=== PATIENT | female | born 1945 | race Caucasian/White ===

== ENCOUNTER 2019-06-09 16:18 | Outpatient (CLI) | payer MEDICARE, SELFPAY ==
--- NOTE | ~2019-06-09 | CT_ITS ---
EXAMINATION: CT abdomen pelvis wo con DATE: 06/09/2019 16:44 INDICATION: Renal cell carcinoma. Follow-up exophytic right renal mass. TECHNIQUE: Computed tomography (CT) of the abdomen and pelvis was performed without intravenous contr ast. The dose-length product was 1411.09 mGy-cm. Automated exposure control and iterative reconstruct ion technique were employed. COMPARISON: CT dated 03/05/2019 FINDINGS: There is an exophytic hyperdense right renal mass medially measuring 2.1 x 2.1 cm, unchange d. There is a 2 mm nonobstructing right renal stone. The left kidney is surgically absent. Lung bases are unremarkable. No significant pleural or pericardial effusion. Heart size normal. No ly mphadenopathy. Nonobstructive bowel gas pattern. Small fat-containing umbilical hernia. Colonic diver ticulosis without evidence for diverticulitis. No free air or free fluid. Uterus is surgically absent . Moderate lumbar spondylosis. Mild osteoarthritis of the hips. No osteolytic or osteoblastic lesions are identified. IMPRESSION: 1. Stable slightly exophytic hyperdense right renal mass measuring 2.1 x 2.1 cm. Correlation with ult rasound or MRI with contrast is recommended to exclude enhancement. 2: Punctate nonobstructing right nephrolithiasis. Reviewed, dictated and finalized at location A. IMPRESSION: 1. Stable slightly exophytic hyperdense right renal mass measuring 2.1 x 2.1 cm . Correlation with ultrasound or MRI with contrast is recommended to exclude en hancement. 2: Punctate nonobstructing right nephrolithiasis.
== END 2019-06-09 16:19 | disposition home or self-care (01) ==
PROVIDERS: PCP Family Medicine Sports Medicine; Visit Provider Urology
DX: D41.01 Neoplasm of uncertain behavior of right kidney (principal); N20.0 Calculus of kidney
CPT/HCPCS: 74176

== ENCOUNTER 2019-07-13 12:58 | Outpatient (CLI) | payer MEDICARE, SELFPAY ==
--- NOTE | 2019-07-13 13:27 | ECG_ITS ---
Measurements Intervals [employer] Rate: 100 P: -4 ND: 145 QRS: 24 QRSD: 94 T: 67 QT: 333 QTc: 430 Interpretive Statements SINUS TACHYCARDIA BORDERLINE ST-T WAVE ABNORMALITY- ANTEROLAT/LAT LEADS BORDERLINE ECG Electronically Signed On 07-13-2019 14:24:57 CDT by Sarbjit Guerrero D.O.
[2019-07-13 14:27] LABS: Hematocrit 46.4 % (37.0-47.0); Hemoglobin 15.8 g/dL (12.0-15.0)
[2019-07-13 14:41] LABS: Blood Urea Nitrogen 36 mg/dL (7-17); Calcium 8.5 mg/dL (8.4-10.2); Carbon Dioxide 23 mmol/L (22-30); Chloride 105 mmol/L (98-107); Estimated Glomerular Filt Rate 22; Glucose 133 mg/dL (65-105); Potassium 3.4 mmol/L (3.4-5.0); Sodium 138 mmol/L (137-145)
== END 2019-07-13 12:59 | disposition home or self-care (01) ==
PROVIDERS: Anesthesiology; PCP Family Medicine Sports Medicine; Visit Provider Urology
DX: Z01.818 Encounter for other preprocedural examination (principal); D64.9 Anemia, unspecified; I10 Essential (primary) hypertension; E11.9 Type 2 diabetes mellitus without complications
CPT/HCPCS: 36415; 80048; 85014; 85018; 93005

== ENCOUNTER 2019-07-19 00:13 | Outpatient (CLI) | payer MEDICARE, SELFPAY ==
[2019-07-19 17:31] LABS: SARS-CoV-2 RNA PCR Negative
== END 2019-07-19 00:14 | disposition home or self-care (01) ==
LOC: ANHCOVIDDT 00:14
PROVIDERS: PCP Family Medicine Sports Medicine; Visit Provider Urology
DX: Z01.812 Encounter for preprocedural laboratory examination (principal); Z20.828 Contact with and (suspected) exposure to other viral communicable diseases
CPT/HCPCS: 87635; C9803; U0003

== ENCOUNTER 2020-01-09 16:29 | Outpatient (CLI) | payer MEDICARE, SELFPAY ==
--- NOTE | ~2020-01-09 | CT_ITS ---
EXAMINATION: CT abdomen pelvis wo con DATE: 01/09/2020 17:23 INDICATION: Right kidney neoplasm TECHNIQUE: Computed tomography (CT) of the abdomen and pelvis was performed without intravenous contr ast. Automated exposure control and iterative reconstruction technique were employed. Exam dose: 138 5.11 mGy-cm total exam DLP. COMPARISON: 06/09/2019 at 03/05/2019 CT abdomen pelvis examinations FINDINGS: Stable 2 cm rounded exophytic mass along the posteromedial mid right kidney, stable in size , shape and density (approximately 50 Hounsfield units) compared to 03/05/2019. Normal heart size. No pericardial or pleural effusion. Small sliding hiatal hernia. Status post cholecystectomy. No bile duct or pancreatic duct dilatation. No hepatic, splenic, pancrea tic, adrenal space-occupying mass lesion is evident. Pinpoint nonobstructing calculus of the right kidney. No ureteral calculus or hydroureteronephrosis. Status post left nephrectomy. No abnormal soft tissue mass is identified in the nephrectomy bed. There is atherosclerotic calcification of the abdominal aorta but no aneurysm. No intraperitoneal or retroperitoneal or pelvic mass lesion or adenopathy or ascites. Small fat-containing umbilical hernia. The urinary bladder is unremarkable. Status post hysterectomy. There are multiple diverticula of the left colon, particularly sigmoid area; no CT evidence of divert iculitis. No bowel obstruction, bowel wall thickening, pneumatosis or intraperitoneal free air. The a ppendix is not detected. No CT evidence of appendicitis or abscess. Diffuse idiopathic skeletal hyperostosis of the thoracic spine. Severe degenerative disc disease of t he lumbar/lumbosacral spine. Small fat-containing umbilical hernia. IMPRESSION: No significant change of rounded 2 cm exophytic right renal mass since 03/05/2019 Small sliding hiatal hernia Status post cholecystectomy Status post left nephrectomy Status post hysterectomy Diverticulosis of the colon Reviewed, dictated and finalized at [facility]. Reviewed, dictated and finalized at location B. E LAWYER IMPRESSION: No significant change of rounded 2 cm exophytic right renal mass s marshal 03/05/2019 Small sliding hiatal hernia Status post cholecystectomy Status post left nephrectomy Status post hysterectomy Diverticulosis of the colon
== END 2020-01-09 16:30 | disposition home or self-care (01) ==
PROVIDERS: PCP Family Medicine Sports Medicine; Visit Provider Urology
DX: D41.01 Neoplasm of uncertain behavior of right kidney (principal); K44.9 Diaphragmatic hernia without obstruction or gangrene; Z90.49 Acquired absence of other specified parts of digestive tract; K57.30 Diverticulosis of large intestine without perforation or abscess without bleeding
CPT/HCPCS: 74176

== ENCOUNTER 2021-01-03 17:37 | Outpatient (CLI) | payer MEDICARE, SELFPAY ==
--- NOTE | ~2021-01-03 | CT_ITS ---
EXAMINATION: CT abdomen pelvis wo con DATE: 01/03/2021 17:57 INDICATION: Right renal neoplasm TECHNIQUE: Computed tomography (CT) of the abdomen and pelvis was performed without intravenous contr ast. The dose-length product was 1179.55 mGy-cm. Automated exposure control and iterative reconstruct ion technique were employed. COMPARISON: Comparison to multiple prior studies sequentially, with oldest reviewed study dated 03/05. . FINDINGS: There is a possible 7 mm right lung nodule on image 1, partially visualized. Heart size is normal. No significant pleural or pericardial effusion. The left kidney is surgically absent. The hyp erdense mass of the right kidney medially is increase in size measuring 2.3 x 2.1 cm greatest axial d imension compared with 1.8 x 1.7 cm on the 03/05/2019 examination. This mass measures 51 Hounsfield un its. There are cholecystectomy clips. The liver, spleen, pancreas, adrenal glands are unremarkable. T here is a 2 mm nonobstructing right renal stone. No ureteral stones or hydronephrosis. There is an um bilical hernia. Colonic diverticulosis without diverticulitis. Status post hysterectomy. No abnormal pelvic masses or fluid collections. There is severe lumbar spondylosis. IMPRESSION: 1. Enlarging hyperdense right renal mass located medially measuring 2.3 x 2.1 cm greatest axial dimen latrice. This mass is concerning for malignancy. Recommend correlation with ultrasound or contrast-enhan corby CT or MRI. 2: Possible 7 mm right upper lobe nodule. Recommend correlation with CT chest. 3: Nonobstructing 2 mm right renal stone. Reviewed, dictated and finalized at location A. ALMIC TECH IMPRESSION: 1. Enlarging hyperdense right renal mass located medially measuring 2.3 x 2.1 c m greatest axial dimension. This mass is concerning for malignancy. Recommend c orrelation with ultrasound or contrast-enhanced CT or MRI. 2: Possible 7 mm right upper lobe nodule. Recommend correlation with CT chest. 3: Nonobstructing 2 mm right renal stone.
== END 2021-01-03 17:38 | disposition home or self-care (01) ==
PROVIDERS: PCP Family Medicine Sports Medicine; Visit Provider Urology
DX: D41.01 Neoplasm of uncertain behavior of right kidney (principal); K57.30 Diverticulosis of large intestine without perforation or abscess without bleeding; M47.816 Spondylosis without myelopathy or radiculopathy, lumbar region; N20.0 Calculus of kidney
CPT/HCPCS: 74176

== ENCOUNTER 2021-01-10 00:41 | Day surgery (SDC) | payer MEDICARE, SELFPAY ==
[2020-12-31 16:09] VITALS: BMI 36.8
[2021-01-10 11:32] VITALS: BP 181/69; PULSE 112; RESP 20; TEMP 36.2; O2SAT 96
--- NOTE | 2021-01-10 11:32 | WPDGICN ---
Assessment and Plan Assessment and plan (1) History of colon polyps: Code(s): Z86.010 - Personal history of colonic polyps Status: Acute Assessment and Plan: Patient has a history of colon polyps 5 years ago. Plan is for surveillance colonoscopy at this time. Typical follow-up is 5 years further recommendations will be given after colonoscopy. (2) IBS (irritable bowel syndrome): Code(s): K58.9 - Irritable bowel syndrome without diarrhea Status: Acute Assessment and Plan: Patient has a history of irritable bowel syndrome. Appears to be doing well on Bentyl antispasmodic agent. High-fiber diet is advised as well. (3) Polyp of stomach: Code(s): K31.7 - Polyp of stomach and duodenum Status: Acute Assessment and Plan: Patient gives a history of a large gastric polyp removed at endoscopy at a different institution within last year. She is on pantoprazole which likely should continue. Old records are requested. Average polyps are usually not precancerous in the stomach but confirming this would be prudent. Should she continue to have epigastric pain a follow-up EGD at an interval is suggested. GI Consult Note Consult date/time: 01/10/21 11:32 HPI: Gale Avery is a 75 year old female Presents for screening colonoscopy. Patient has a personal history of colon polyps. Most recently 2015. She presents today for follow-up examination she also complains of a long history of irritable bowel syndrome. She typically gets abdominal cramping. Recently was started on Bentyl antispasmodic agent with prompt improvement of symptoms. Patient reports that within the last year she had an EGD which revealed large gastric polyps. This was performed in granted at [facility] and these results are not immediately available. Patient currently followed elsewhere for this. Suggest old records may be of some benefit in perhaps continuing pantoprazole for acid suppression. Review of Systems Review of Systems: All systems reviewed & are unremarkable except as noted in HPI and below PMFSH Past Medical History Medical History (Updated 01/10/21 @ 11:34 by Jose Santiago MD) Anemia Anxiety Arm fracture, left Arthritis Carpal tunnel syndrome of right wrist Cataracts, bilateral CHF (congestive heart failure) Colon polyp Depression GERD (gastroesophageal reflux disease) HTN (hypertension) Hyperlipidemia Hypothyroid IBS (irritable bowel syndrome) Panic disorder Polyp of stomach Stress incontinence Type II diabetes mellitus Uterine cancer UTI (urinary tract infection) Surgical History Surgical History (Updated 03/05/19 @ 16:57 by Emiliana Herndon) H/O arthroscopy of right knee History of carpal tunnel release History of hysterectomy History of nephrectomy, left Hx of appendectomy Hx of cholecystectomy Hx of endoscopy x2 Hx of tonsillectomy Social History Social History (Updated 03/05/19 @ 16:52 by Emiliana Herndon) Smoking status: Never smoker Living arrangements: alone Gender identity (if verbalized by the patient): Female Spiritual care concerns: No Meds Home Medications and Allergies Home Medications Medication Instructions Recorded Confirmed Type alprazolam 1 mg PO PRN PRN 03/05/19 12/31/20 History blood sugar diagnostic [OneTouch 03/05/19 03/05/19 History Ultra Blue Test Strip] paroxetine HCl 30 mg PO DAILY 03/05/19 12/31/20 History topiramate 50 mg PO HS 03/05/19 12/31/20 History amlodipine 5 mg PO DAILY 07/07/19 12/31/20 History aspirin [Aspir-81] 81 mg PO DAILY 07/07/19 12/31/20 History atorvastatin 20 mg PO DAILY 07/07/19 12/31/20 History chlorthalidone 25 mg PO DAILY 07/07/19 12/31/20 History glipizide 5 mg PO BID 07/07/19 12/31/20 History levothyroxine 175 mcg PO DAILY 07/07/19 12/31/20 History pantoprazole 40 mg PO QAM 07/07/19 12/31/20 History insulin lispro protamin-lispro 30 unit SUBCUT BID 12/31/20 12/31/20 History [Humalog
[2021-01-10] MEDS: LACTATED RINGERS 1,000 ML 150 ML IV CONT (12:00)
--- NOTE | 2021-01-10 12:01 | WPDANESEPPF ---
Anes - Initial Pre Proc Eval Procedure: Operation Date: 01/10/21 13:00 Proposed Procedures p Colonoscopy - Jose Santiago MD Date/Time: 01/10/21 12:01 Surgeon: Jose Santiago MD Pre Op Diagnosis: IBS , hx colon polyps Patient Data Age: 75 Gender: F Height: 1.64 m Weight: 97.2 kg Last Vital Signs Temp 36.2 C L 01/10/21 11:32 Pulse 112 H 01/10/21 11:32 Resp 20 01/10/21 11:32 BP 181/69 H 01/10/21 11:32 Pulse Ox 96 01/10/21 11:32 Allergies Allergy/AdvReac Type Severity Reaction Status Date / Time No Known Allergies Allergy Verified 01/10/21 11:28 Home Medications Medication Instructions Recorded Confirmed Type alprazolam 1 mg PO PRN PRN 03/05/19 12/31/20 History blood sugar diagnostic [OneTouch 03/05/19 03/05/19 History Ultra Blue Test Strip] paroxetine HCl 30 mg PO DAILY 03/05/19 12/31/20 History topiramate 50 mg PO HS 03/05/19 12/31/20 History amlodipine 5 mg PO DAILY 07/07/19 12/31/20 History aspirin [Aspir-81] 81 mg PO DAILY 07/07/19 12/31/20 History atorvastatin 20 mg PO DAILY 07/07/19 12/31/20 History chlorthalidone 25 mg PO DAILY 07/07/19 12/31/20 History glipizide 5 mg PO BID 07/07/19 12/31/20 History levothyroxine 175 mcg PO DAILY 07/07/19 12/31/20 History pantoprazole 40 mg PO QAM 07/07/19 12/31/20 History insulin lispro protamin-lispro 30 unit SUBCUT BID 12/31/20 12/31/20 History [Humalog Mix 75-25 KwikPen] Patient hx anesthesia problems: none Family hx anesthesia problems: none Results Review: All pre-operative results and documents have been reviewed as part of the pre-operative evaluation. [facility] Past Medical History Medical History (Updated 01/10/21 @ 11:34 by Jose Santiago MD) Anemia Anxiety Arm fracture, left Arthritis Carpal tunnel syndrome of right wrist Cataracts, bilateral CHF (congestive heart failure) Colon polyp Depression GERD (gastroesophageal reflux disease) HTN (hypertension) Hyperlipidemia Hypothyroid IBS (irritable bowel syndrome) Panic disorder Polyp of stomach Stress incontinence Type II diabetes mellitus Uterine cancer UTI (urinary tract infection) Surgical History Surgical History (Updated 03/05/19 @ 16:57 by Emiliana Herndon) H/O arthroscopy of right knee History of carpal tunnel release History of hysterectomy History of nephrectomy, left Hx of appendectomy Hx of cholecystectomy Hx of endoscopy x2 Hx of tonsillectomy Social History Social History (Updated 03/05/19 @ 16:52 by Emiliana Herndon) Smoking status: Never smoker Living arrangements: alone Gender identity (if verbalized by the patient): Female Spiritual care concerns: No Anes - Eval Final PreProcedure Day of Procedure 01/10/21 12:01 Patient weight: obese Heart: regular rate and rhythm Lungs: clear to auscultation and normal air movement Airway: Mallampati scale class II Neurological: alert and oriented Last oral intake: >/= 8 hours ASA classification: III Emergent: no Anesthetic plan: proceed Anesthesia type and monitoring: general GIVS Results Review: All pre-operative results and documents have been reviewed as part of the pre-operative evaluation. Informed Consent: The patient's anesthetic plan and its attendant risks and benefits were discussed with the patient/family/POA. Questions were solicited and answers provided to the satisfaction of the patient/family/POA.
[2021-01-10 12:15] LABS: Glucose Point of Care 183 mg/dl (65-105)
[2021-01-10 12:48] VITALS: BP 97/45; PULSE 82; RESP 20; O2SAT 97
[2021-01-10 12:58] VITALS: BP 95/51; PULSE 81; RESP 20; O2SAT 97
[2021-01-10 13:08] VITALS: BP 112/64; PULSE 83; RESP 20; O2SAT 97
== END 2021-01-10 13:25 | disposition home or self-care (01) ==
PROVIDERS: PCP Family Medicine Sports Medicine; Visit Provider Internal Medicine Gastroenterology
PROC: 0DJD8ZZ Inspection of Lower Intestinal Tract, Via Natural or Artificial Opening Endoscopic (ICD-10-PCS; CPT 45378; principal; 2021-01-10 13:00)
DX: Z12.11 Encounter for screening for malignant neoplasm of colon (principal); D12.2 Benign neoplasm of ascending colon; D12.0 Benign neoplasm of cecum; D12.3 Benign neoplasm of transverse colon; K63.5 Polyp of colon; K57.30 Diverticulosis of large intestine without perforation or abscess without bleeding; K64.8 Other hemorrhoids; K58.9 Irritable bowel syndrome, unspecified; E03.9 Hypothyroidism, unspecified; Z79.82 Long term (current) use of aspirin; D64.9 Anemia, unspecified; Z79.4 Long term (current) use of insulin; F41.8 Other specified anxiety disorders; K21.9 Gastro-esophageal reflux disease without esophagitis; E78.5 Hyperlipidemia, unspecified; F41.0 Panic disorder [episodic paroxysmal anxiety]; E11.9 Type 2 diabetes mellitus without complications; Z85.42 Personal history of malignant neoplasm of other parts of uterus; I11.0 Hypertensive heart disease with heart failure; I50.9 Heart failure, unspecified; E66.9 Obesity, unspecified; Z68.36 Body mass index [BMI] 36.0-36.9, adult
CPT/HCPCS: 45385; 82948; 88305; J2704; J7120

== ENCOUNTER 2021-01-31 13:45 | Outpatient (CLI) | payer MEDICARE, SELFPAY ==
--- NOTE | ~2021-01-31 | CT_ITS ---
EXAMINATION: CT diagnostic chest wo con DATE: 01/31/2021 14:09 INDICATION: Lung nodule TECHNIQUE: Computed tomography (CT) of the abdomen and pelvis was performed without intravenous contr ast. The dose-length product (DLP) was 339.92 mGy-cm. Automated exposure control and iterative recons truction technique were employed. COMPARISON: 01/03/2021, 01/09/2020, 03/05/2019 FINDINGS: A 6 mm nodule of the right middle lobe has a stable appearance when compared to prior CT ex ams. There are multiple (greater than 30) small nodules scattered throughout the lungs. Those in the lung bases visualized on comparison examinations appear to be stable. The lungs are free of acute opa cities. There is no pleural effusion or pneumothorax. No pathologically enlarged thoracic lymph nodes are identified. The heart size is normal. The gallbladder is surgically absent. IMPRESSION: 1. Multiple small nodules scattered throughout the lungs which likely reflect old granulomatous disea se. Those visualized in the lung bases on prior examinations are stable. Chest CT in six months would be recommended to assess stability of the nodules not previously imaged. Reviewed, dictated and finalized at location A. HES SEPARATOR IMPRESSION: 1. Multiple small nodules scattered throughout the lungs which likely reflect o ld granulomatous disease. Those visualized in the lung bases on prior examinati ons are stable. Chest CT in six months would be recommended to assess stability of the nodules not previously imaged.
== END 2021-01-31 13:46 | disposition home or self-care (01) ==
LOC: ANHIMG 13:50
PROVIDERS: PCP Family Medicine Sports Medicine; Visit Provider Urology
DX: R91.8 Other nonspecific abnormal finding of lung field (principal)
CPT/HCPCS: 71250

== ENCOUNTER 2021-09-01 11:33 | Emergency (ER) | payer MEDICARE, SELFPAY ==
[2021-09-01] VITALS (14 sets, daily range): BP systolic 151; BP diastolic 61; PULSE 72–92; RESP 12–20; TEMP 37.7; O2SAT 94–100
[2021-09-01 12:15] LABS: Basophils Percent Auto 0.3 % (0.2-1.2); Eosinophils Absolute Auto 0.1 K/mm3 (0-0.3); Eosinophils Percent Auto 0.6 % (0-4.4); Hematocrit 45.2 % (37.0-47.0); Hemoglobin 14.6 g/dL (12.0-15.0); Immature Granulocyte Absolute 0.04 K/mm3 (0.00-0.031); Immature Granulocyte Percent A 0.3 % (0-0.5); Lymphocytes Absolute Auto 1.14 K/mm3 (0.9-3.2); Lymphocytes Percent Auto 9.2 % (18.3-44.2); Mean Corpuscular HGB Conc 32.3 g/dl (32-36); Mean Corpuscular Volume 92.8 fl (80-100); Mean Platelet Volume 10.4 fl (7.4-10.4); Monocytes Absolute Auto 0.5 K/mm3 (0.1-0.6); Monocytes Percent Auto 3.6 % (2.6-8.5); Neutrophils Absolute Auto 10.6 K/mm3 (1.3-6.7); Platelet Count Result 225 k/mm3 (150-375); Red Blood Count 4.87 M/mm3 (4.2-5.4); Red Cell Distribution Width 13.2 % (11.5-14.5); White Blood Count 12.4 K/mm3 (4.5-10.0)
[2021-09-01 12:25] LABS: Alanine Aminotransferase 7 U/L (6-35); Albumin Level 4.3 g/dL (3.5-5.1); Alkaline Phosphatase 151 U/L (38-126); Anion Gap 8 mmol/L (8-16); Aspartate Amino Transferase 21 U/L (14-36); Bilirubin,Total 0.4 mg/dL (0.2-1.3); Blood Urea Nitrogen 33 mg/dL (7-17); Calcium 8.4 mg/dL (8.4-10.2); Carbon Dioxide 26 mmol/L (22-30); Chloride 105 mmol/L (98-107); Estimated CRCL calculation 26 ml/min; Estimated Glomerular Filt Rate 26; Glucose 271 mg/dL (65-110); Lipase 173 U/L (23-300); Potassium 3.5 mmol/L (3.4-5.0); Sodium 139 mmol/L (137-145)
[2021-09-01 13:06] LABS: Add Urine Microscopic? YES; Appearance Urine Slightly Cloudy (Clear); Bilirubin Urine Negative (Negative); Blood Urine Negative (Negative); Color Urine Yellow (Yellow); Glucose Urine UA Negative (Negative); Ketones Urine Negative (Negative); Leukocyte Esterase Ur Negative LEU/UL (Negative); Nitrate Urine Negative (Negative); Protein Urine Negative (Negative); Specific Grav Ur 1.025 (1.001-1.035); Urobilinogen Urine 0.2 mg/dL (<2.0)
[2021-09-01 13:11] LABS: Bacteria Urine Trace /hpf; Mucus Urine Rare /lpf; RBC Urine 0-2 /hpf (0-2); Squamous Epithelial Cell Urine Many /hpf (Few)
[2021-09-01] MEDS: SODIUM CHLORIDE 0.9% IV 1,000 ML 999 ML IV CONT (13:26)
[2021-09-01] MEDS: ONDANSETRON INJ 4 MG/2 ML VIAL IV PUSH (13:26)
[2021-09-01] MEDS: METOCLOPRAMIDE HCL 10 MG TABLET PO (13:26)
--- NOTE | 2021-09-01 13:26 | ED.NAVMDI ---
HPI - Nausea/Vomiting/Diarrhea General Chief complaint: Nausea/Vomiting/Diarrhea Stated complaint: nausea and vomiting for 3 weeks Time Seen by Provider: 09/01/21 12:51 History of Present Illness HPI Narrative: 76-year-old female presents emergency room secondary to nausea vomiting gall fracture 3 weeks. She states anytime she tries to eat or or drink anything she feels extremely bloated and gets nausea and vomiting. She was seen by her physician and started on some medication to help the nausea but does not seem to make any. Biggest concern that she is a diabetic concerned about having hypoglycemia. She has been monitoring her blood glucose closely. She has had no problems with diarrhea or constipation. She is had her gallbladder taken out the past. She has no chills or fevers. No blood in her vomitus. She had been worked up evaluated and diagnosed with diabetic gastroparesis. Related Data Home Medications Medication Instructions Recorded Confirmed alprazolam 1 mg tablet 1 mg PO PRN PRN Anxiety 03/05/19 01/10/21 blood sugar diagnostic (OneTouch 03/05/19 01/10/21 Ultra Blue Test Strip) paroxetine HCl 30 mg tablet 30 mg PO DAILY 03/05/19 01/10/21 topiramate 50 mg tablet 50 mg PO HS 03/05/19 01/10/21 amlodipine 5 mg tablet 5 mg PO DAILY 07/07/19 01/10/21 aspirin 81 mg tablet,delayed 81 mg PO DAILY 07/07/19 01/10/21 release (Aspir-) atorvastatin 20 mg tablet 20 mg PO DAILY 07/07/19 01/10/21 chlorthalidone 25 mg tablet 25 mg PO DAILY 07/07/19 01/10/21 glipizide 5 mg tablet 5 mg PO BID 07/07/19 01/10/21 levothyroxine 175 mcg tablet 175 mcg PO DAILY 07/07/19 01/10/21 pantoprazole 40 mg tablet,delayed 40 mg PO QAM 07/07/19 01/10/21 release insulin lispro protamine-lispro 30 unit subcut BID 12/31/20 01/10/21 100 unit/mL (75-25) subcutaneous pen (Humalog Mix 75-25 KwikPen) ondansetron 8 mg disintegrating tablet 09/01/21 tablet semaglutide 0.25 mg or 0.5 mg (2 ea subcut 09/01/21 mg/1.5 mL) subcutaneous pen injector (Ozempic) Allergies Allergy/AdvReac Type Severity Reaction Status Date / Time No Known Allergies Allergy Verified 09/01/21 11:56 Review of Systems Review of Systems: CONSTITUTIONAL: Denies fever, chills, or sweats. EYES: Denies visual changes, redness, or discharge. ENT: Denies rhinorrhea, congestion, sore throat, or otalgia. CARDIOVASCULAR: Denies chest pain, palpitations, or edema. RESPIRATORY: Denies cough or dyspnea. GASTROINTESTINAL: Experiencing nausea and vomiting as noted in HPI. No significant abdominal pain. GENITOURINARY: Denies dysuria or hematuria. SKIN: Denies rash or itching. MUSCULOSKELETAL: Denies back pain, joint pain, or myalgia. NEUROLOGIC: Denies headache, numbness, or weakness. PSYCHIATRIC: Denies anxiety or depression. PMFSH Past Medical History Medical History Anemia Anxiety Arm fracture, left Arthritis Carpal tunnel syndrome of right wrist Cataracts, bilateral CHF (congestive heart failure) Colon polyp Depression GERD (gastroesophageal reflux disease) HTN (hypertension) Hyperlipidemia Hypothyroid IBS (irritable bowel syndrome) Panic disorder Polyp of stomach Stress incontinence Type II diabetes mellitus Uterine cancer UTI (urinary tract infection) Surgical History Surgical History H/O arthroscopy of right knee History of carpal tunnel release History of hysterectomy History of nephrectomy, left Hx of appendectomy Hx of cholecystectomy Hx of endoscopy x2 Hx of tonsillectomy Social History Social History Smoking status: Never smoker Gender identity (if verbalized by the patient): Female Spiritual care concerns: No Exam Narrative: APPEARANCE: Well appearing, no pain or distress, well-nourished. Head normocephalic and atraumatic. EYES: PERRLA/EOMI, conjunctivae very mendy
[2021-09-01] MEDS: ALPRAZolam (*CRX) 0.5 MG TABLET 1 MG PO (14:54)
== END 2021-09-01 16:14 | disposition home or self-care (01) ==
PROVIDERS: Emergency Provider Emergency Medicine; PCP Physician Assistant
DX: E11.43 Type 2 diabetes mellitus with diabetic autonomic (poly)neuropathy (principal); K31.84 Gastroparesis; R11.2 Nausea with vomiting, unspecified; I50.9 Heart failure, unspecified; I11.0 Hypertensive heart disease with heart failure; E78.5 Hyperlipidemia, unspecified; E03.9 Hypothyroidism, unspecified; K58.9 Irritable bowel syndrome, unspecified; F41.9 Anxiety disorder, unspecified; Z85.42 Personal history of malignant neoplasm of other parts of uterus; Z86.2 Personal history of diseases of the blood and blood-forming organs and certain disorders involving the immune mechanism; Z87.440 Personal history of urinary (tract) infections; Z79.84 Long term (current) use of oral hypoglycemic drugs; Z79.4 Long term (current) use of insulin; Z79.82 Long term (current) use of aspirin; Z90.710 Acquired absence of both cervix and uterus; Z90.5 Acquired absence of kidney
CPT/HCPCS: 36415; 80053; 81001; 83690; 85025; 96361; 96374; 99284; A9270; J2405; J7030

== ENCOUNTER 2021-10-11 01:09 | Day surgery (SDC) | payer MEDICARE, SELFPAY ==
[2021-10-10 10:02] VITALS: BMI 38.2
[2021-10-11 12:26] VITALS: BP 146/71; PULSE 101; RESP 22; TEMP 36.2; O2SAT 99; BMI 37.6
[2021-10-11] MEDS: LACTATED RINGERS 1,000 ML 150 ML IV CONT (12:39)
[2021-10-11 12:43] LABS: Glucose Point of Care 129 mg/dl (65-105)
--- NOTE | 2021-10-11 12:59 | WPDHPUPDATE1 ---
History and Physical Update Update Date/Time: 10/11/21 12:59 History and Physical has been reviewed, including an updated exam of the patient. There are NO changes in the patient's condition. Risks, benefits, and alternatives have been discussed and questions answered. Patient agrees to proceed with procedure.
--- NOTE | 2021-10-11 13:02 | WPDANESEPPF ---
Anes - Initial Pre Proc Eval Procedure: Operation Date: 10/11/21 13:30 Proposed Procedures p Esophagogastroduodenoscopy - Jose Santiago MD Date/Time: 10/11/21 13:02 Surgeon: Jose Santiago MD Pre Op Diagnosis: N&V, abdom.pain, hx of gastric polyp Patient Data Age: 76 Gender: F Height: 1.63 m Weight: 99.5 kg Last Vital Signs Temp 97.1 F L 10/11/21 12:26 Pulse 101 H 10/11/21 12:26 Resp 22 H 10/11/21 12:26 BP 146/71 H 10/11/21 12:26 Pulse Ox 99 10/11/21 12:26 O2 Del Method Room Air 10/11/21 12:26 Allergies Allergy/AdvReac Type Severity Reaction Status Date / Time No Known Allergies Allergy Verified 10/11/21 12:22 Home Medications Medication Instructions Recorded Confirmed Type blood sugar diagnostic (OneTouch 03/05/19 10/02/21 History Ultra Blue Test Strip) paroxetine HCl 30 mg tablet 30 mg PO DAILY 03/05/19 10/10/21 History topiramate 50 mg tablet 50 mg PO HS 03/05/19 10/10/21 History amlodipine 5 mg tablet 5 mg PO DAILY 07/07/19 10/10/21 History aspirin 81 mg tablet,delayed 81 mg PO DAILY 07/07/19 10/10/21 History release (Aspir-) atorvastatin 20 mg tablet 20 mg PO DAILY 07/07/19 10/10/21 History chlorthalidone 25 mg tablet 25 mg PO DAILY 07/07/19 10/10/21 History levothyroxine 175 mcg tablet 175 mcg PO DAILY 07/07/19 10/10/21 History pantoprazole 40 mg tablet,delayed 40 mg PO QAM 07/07/19 10/10/21 History release insulin lispro protamine-lispro 30 unit subcut BID 12/31/20 10/10/21 History 100 unit/mL (75-25) subcutaneous pen (Humalog Mix 75-25 KwikPen) semaglutide 0.25 mg or 0.5 mg (2 09/01/21 10/02/21 History mg/1.5 mL) subcutaneous pen injector (Ozempic) carbidopa 25 mg-levodopa 100 mg 1 tablet PO TID #90 tabs 09/20/21 10/10/21 Rx tablet (Sinemet) pantoprazole 40 mg tablet,delayed 40 mg PO QHS 1 month #30 tabs 10/02/21 10/10/21 Rx release dicyclomine 20 mg tablet 20 mg PO DAILY 10/10/21 10/10/21 History lorazepam 1 mg tablet 1 mg PO DAILY 10/10/21 10/10/21 History Laboratory Tests 10/11/21 12:38 POC Capillary Glucose 129 mg/dl H mg/dl (65-105) Patient hx anesthesia problems: none Family hx anesthesia problems: none Results Review: All pre-operative results and documents have been reviewed as part of the pre-operative evaluation. [facility] Past Medical History Medical History (Updated 10/02/21 @ 13:58 by Kacie Landeros, [employer] SALESPERSON-C) Abdominal pain Anemia Anxiety Arm fracture, left Arthritis Carpal tunnel syndrome of right wrist Cataracts, bilateral CHF (congestive heart failure) Colon polyp Depression GERD (gastroesophageal reflux disease) HTN (hypertension) Hyperlipidemia Hypothyroid IBS (irritable bowel syndrome) Nausea and vomiting Obese Panic disorder Polyp of stomach Stress incontinence Type II diabetes mellitus Uterine cancer UTI (urinary tract infection) Surgical History Surgical History H/O arthroscopy of right knee History of carpal tunnel release History of hysterectomy History of nephrectomy, left Hx of appendectomy Hx of cholecystectomy Hx of endoscopy x2 Hx of tonsillectomy Social History Social History Smoking status: Never smoker Gender identity (if verbalized by the patient): Female Spiritual care concerns: No Anes - Eval Final PreProcedure Day of Procedure 10/11/21 13:02 Patient weight: obese Heart: regular rate and rhythm Lungs: clear to auscultation Airway: Mallampati scale class II Neurological: alert and oriented Last oral intake: >/= 8 hours ASA classification: III Emergent: no Anesthetic plan: proceed Anesthesia type and monitoring: general GIVS and standard monitoring Results Review: All pre-operative results and documents have been reviewed as part of the pre-operative evaluation. Informed Consent: The patient's anesthetic plan and its attendant risks
[2021-10-11 13:14] VITALS: BP 112/49; PULSE 84; RESP 18; O2SAT 100
[2021-10-11 13:24] VITALS: BP 100/68; PULSE 79; RESP 17; O2SAT 98
[2021-10-11 13:34] VITALS: BP 117/52; PULSE 78; RESP 17; O2SAT 100
[2021-10-11 13:51] LABS: Glucose Point of Care 118 mg/dl (65-105)
== END 2021-10-11 13:53 | disposition home or self-care (01) ==
PROVIDERS: PCP Physician Assistant; Visit Provider Internal Medicine Gastroenterology
PROC: 0DJ08ZZ Inspection of Upper Intestinal Tract, Via Natural or Artificial Opening Endoscopic (ICD-10-PCS; CPT 43235; principal; 2021-10-11 13:30)
DX: R11.2 Nausea with vomiting, unspecified (principal); R10.84 Generalized abdominal pain; K58.2 Mixed irritable bowel syndrome; F41.9 Anxiety disorder, unspecified; D64.9 Anemia, unspecified; I11.0 Hypertensive heart disease with heart failure; E78.5 Hyperlipidemia, unspecified; E03.9 Hypothyroidism, unspecified; E11.9 Type 2 diabetes mellitus without complications; Z85.42 Personal history of malignant neoplasm of other parts of uterus; Z90.49 Acquired absence of other specified parts of digestive tract; Z79.82 Long term (current) use of aspirin; Z79.4 Long term (current) use of insulin; K31.7 Polyp of stomach and duodenum; K58.9 Irritable bowel syndrome, unspecified; E66.9 Obesity, unspecified; Z68.37 Body mass index [BMI] 37.0-37.9, adult
CPT/HCPCS: 43239; 82948; 87081; J2704; J7120

== ENCOUNTER 2021-10-15 08:00 | Outpatient (CLI) | payer MEDICARE, SELFPAY ==
--- NOTE | ~2021-10-15 | NM_ITS ---
EXAM: NM gastric emptying study DATE: 10/15/2021 13:17 INDICATION: Nausea, vomiting and abdominal pain TECHNIQUE: A gastric emptying study was performed using the methodology of Caity FERRARI, et al. J Nucl Med 2007; 48:568-572. The patient was given a meal consisting of 2 scrambled eggs labeled with 0.962 mCi Tc-99m sulfur colloid, 2 slices of toast, two packages of jam, and approximately 120 mL of water . Simultaneous anterior and posterior 1-min images of the abdomen were obtained with the patient supi ne at multiple time points over a total period of 4 hours. The geometric mean of anterior and posteri or views was determined, and the percentage retention was calculated for each time point. COMPARISON: CT abdomen and pelvis dated 01/03/2021 FINDINGS: Gastric retention of the radiotracer-labeled meal was 72%, 55%, and 43% at the 1-hour, 2-hour, and 4- hour time points, respectively. With this technique, apparent rapid gastric emptying is suggested by <30% gastric retention at 1 hour. Delayed gastric emptying is defined by gastric retention of >90% at 1 hour, >60% retention at 2 hours, or >10% retention at 4 hours. IMPRESSION: 1. Delayed gastric emptying. Reviewed, dictated and finalized at location A.
== END 2021-10-15 08:01 | disposition home or self-care (01) ==
PROVIDERS: PCP Physician Assistant; Visit Provider Nurse Practitioner Family
DX: R11.2 Nausea with vomiting, unspecified (principal); K30 Functional dyspepsia
CPT/HCPCS: 78264; A9541

== ENCOUNTER 2021-11-12 10:43 | Outpatient (CLI) | payer MEDICARE, SELFPAY ==
[2021-11-12 12:31] LABS: Alanine Aminotransferase 15 U/L (6-35); Albumin Level 3.8 g/dL (3.5-5.1); Alkaline Phosphatase 112 U/L (38-126); Aspartate Amino Transferase 23 U/L (14-36); Bilirubin,Total 0.3 mg/dL (0.2-1.3)
== END 2021-11-12 10:44 | disposition home or self-care (01) ==
PROVIDERS: PCP Physician Assistant; Visit Provider Nurse Practitioner Family
DX: R74.8 Abnormal levels of other serum enzymes (principal)
CPT/HCPCS: 36415; 80076

== ENCOUNTER 2021-12-26 11:31 | Outpatient (CLI) | payer MEDICARE, SELFPAY ==
--- NOTE | ~2021-12-26 | XR_ITS ---
XR abdomen/kub 1V 12/26/2021 12:25 INDICATION: Nausea with vomiting TECHNIQUE: KUB COMPARISON: None FINDINGS: Bowel gas pattern is normal. Moderate colonic fecal loading. Lung bases are unremarkable. T here is no evidence of free air, mass, organomegaly, ascites or obstruction. No abnormal calculi are seen. The bones appear intact. There is moderate lumbar spondylosis. IMPRESSION: 1: No acute abdominal abnormality identified. Reviewed, dictated and finalized at location A.
[2021-12-26 12:28] LABS: Hematocrit 41.7 % (37.0-47.0); Hemoglobin 14.1 g/dL (12.0-15.0); Mean Corpuscular HGB Conc 33.8 g/dl (32-36); Mean Corpuscular Hemoglobin 30.8 pg (26-34); Mean Platelet Volume 10.5 fl (7.4-10.4); Platelet Count Result 295 k/mm3 (150-375); Red Blood Count 4.58 M/mm3 (4.2-5.4); Red Cell Distribution Width 13.1 % (11.5-14.5); White Blood Count 14.8 K/mm3 (4.5-10.0)
[2021-12-26 12:46] LABS: Alanine Aminotransferase 8 U/L (6-35); Albumin Level 4.1 g/dL (3.5-5.1); Alkaline Phosphatase 113 U/L (38-126); Anion Gap 12 mmol/L (8-16); Aspartate Amino Transferase 23 U/L (14-36); Bilirubin,Total 0.5 mg/dL (0.2-1.3); Blood Urea Nitrogen 32 mg/dL (7-17); Calcium 8.5 mg/dL (8.4-10.2); Carbon Dioxide 23 mmol/L (22-30); Chloride 101 mmol/L (98-107); Estimated Glomerular Filt Rate 27; Glucose 117 mg/dL (65-110); Potassium 3.2 mmol/L (3.4-5.0); Sodium 136 mmol/L (137-145)
[2021-12-26 14:58] LABS: Erythrocyte Sedimentation Rate 38 mm/hr (0-20)
== END 2021-12-26 11:32 | disposition home or self-care (01) ==
PROVIDERS: PCP Physician Assistant; Visit Provider Nurse Practitioner Family
DX: R11.2 Nausea with vomiting, unspecified (principal); R10.9 Unspecified abdominal pain; R53.83 Other fatigue
CPT/HCPCS: 36415; 74018; 80053; 85027; 85652; 86140

== ENCOUNTER 2022-01-22 06:57 | Outpatient (CLI) | payer MEDICARE, SELFPAY ==
--- NOTE | ~2022-01-22 | CT_ITS ---
EXAMINATION: CT abdomen pelvis wo con DATE: 01/22/2022 08:58 INDICATION: Abdominal pain, nausea and vomiting TECHNIQUE: Computed tomography (CT) of the abdomen and pelvis was performed without intravenous contr ast. Automated exposure control and iterative reconstruction technique were employed. Exam dose: 796 .69 mGy-cm total exam DLP. COMPARISON: 12/26/2021 KUB 01/03/2021 CT abdomen pelvis FINDINGS: Lung bases are clear of consolidation. Approximately 5.2 x 6.5 mm nodule is noted in the middle lobe, previously measuring 6.1 x 8.1 mm on . Stable approximately 2.5 mm right lower lobe nodule (series 4 image 22) since 03/05/2019. Small sliding hiatal hernia. Normal heart size. No pericardial or pleural effusion. Status post cholecystectomy. No bile duct or pancreatic duct dilatation. No hepatic, splenic, pancreatic or adrenal mass lesion is noted. Status post left nephrectomy. No abnormal mass or adenopathy is noted at the left nephrectomy bed. Pinpoint nonobstructing right renal calculus. No right ureteral calculus or hydroureteronephrosis. There is an approximately 2.4 cm hyperdense mass along the mid posteromedial right kidney, measuring 2 cm on 03/05/2019. Hypernephroma is a strong possibility. There is an apparently new 11 mm hyperdensity along the anterior aspect of lower pole of the right ki dney. Small hypernephroma is not excluded. MR renal examination is recommended. The urinary bladder is evacuated and not optimally evaluated. Status post hysterectomy. There is atherosclerotic calcification but normal caliber of the abdominal aorta. No intraperitoneal or retroperitoneal or pelvic mass lesion or adenopathy or ascites is noted otherwise. There are numerous diverticula of the sigmoid and descending colon; no CT evidence of diverticulitis. No bowel obstruction, bowel wall thickening, pneumatosis or intraperitoneal free air. The appendix is likely been surgically resected. Small fat-containing umbilical hernia. No suspicious osteolytic or osteoblastic lesions are noted. Degenerative spurring of the lower thoracic spine. Multilevel degenerative disc disease of the lumbar spine, particularly severe at L3-4, L4-5 and L5-S1. IMPRESSION: Enlarged 2.4 cm hyperdense right renal lesion and apparently new 10 mm hyperdense right renal lesion since 01/03/2021, suggesting hypernephroma; consider MR renal examination Status post left nephrectomy Reviewed, dictated and finalized at Location A. Reviewed, dictated and finalized at location B. 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
[2022-01-22 07:35] LABS: Estimated Glomerular Filt Rate 24
== END 2022-01-22 06:58 | disposition home or self-care (01) ==
PROVIDERS: PCP Physician Assistant; Visit Provider Nurse Practitioner
DX: R11.2 Nausea with vomiting, unspecified (principal)
CPT/HCPCS: 74176

== ENCOUNTER 2022-02-06 12:17 | Emergency (ER) | payer MEDICARE, SELFPAY ==
--- NOTE | ~2022-02-06 | CT_ITS ---
Non-contrast CT scan of the Abdomen and Pelvis Clinical indication: Flank pain Technique: 5 mm axial scans were obtained through the abdomen and pelvis without intravenous or oral contrast. Dose reduction technique was used on this scan by utilizing automated exposure control and iterative reconstruction technique. The dose-length product (DLP) was 1026.36 mGy-cm. COMPARISON: 01/22/2022 and 01/03/2021 Findings: Images through the lung bases reveal no abnormalities. The liver, spleen, pancreas, and adrenals appear normal. Cholecystectomy clips are present. Patient i s status post left nephrectomy. Stable hyperdense right renal lesions, most likely hyperdense cysts. No renal or ureteral stone present. There is no aortic aneurysm. There is no evidence of bowel obstruction. Sigmoid diverticulosis noted. Small fat-containing umbilic al hernia present. Images through the pelvis were performed. There is no evidence of ascites or lymphadenopathy. Urinary bladder unremarkable. Patient appears to the sister and. No pelvic mass. Impression: Probable hyperdense right renal cysts. Ultrasound or pre and postcontrast MR could be considered to f urther confirm cystic versus solid lesions. Status post left nephrectomy. Small fat-containing umbilical hernia. Reviewed, dictated and finalized at location [] INSPECTOR Impression: Probable hyperdense right renal cysts. Ultrasound or pre and postcontrast MR co uld be considered to further confirm cystic versus solid lesions. Status post left nephrectomy. Small fat-containing umbilical hernia.
--- NOTE | 2022-02-06 13:30 | ECG_ITS ---
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
[2022-02-06 13:31] VITALS: BP 145/72; PULSE 83; RESP 20; TEMP 36.6; O2SAT 99
[2022-02-06 13:40] LABS: Basophils Absolute Auto 0.1 K/mm3 (0.0-0.1); Basophils Percent Auto 0.5 % (0.2-1.2); Eosinophils Absolute Auto 0.2 K/mm3 (0-0.3); Eosinophils Percent Auto 1.3 % (0-4.4); Hematocrit 43.4 % (37.0-47.0); Hemoglobin 14.5 g/dL (12.0-15.0); Immature Granulocyte Absolute 0.06 K/mm3 (0.00-0.031); Immature Granulocyte Percent A 0.4 % (0-0.5); Lymphocytes Absolute Auto 2.94 K/mm3 (0.9-3.2); Lymphocytes Percent Auto 20.6 % (18.3-44.2); Mean Corpuscular HGB Conc 33.4 g/dl (32-36); Mean Corpuscular Hemoglobin 30.7 pg (26-34); Mean Corpuscular Volume 91.8 fl (80-100); Mean Platelet Volume 10.5 fl (7.4-10.4); Monocytes Absolute Auto 0.8 K/mm3 (0.1-0.6); Monocytes Percent Auto 5.5 % (2.6-8.5); Neutrophils Absolute Auto 10.3 K/mm3 (1.3-6.7); Neutrophils Percent Auto 71.7 % (45.5-73.1); Platelet Count Result 252 k/mm3 (150-375); Red Blood Count 4.73 M/mm3 (4.2-5.4); Red Cell Distribution Width 13.4 % (11.5-14.5); White Blood Count 14.3 K/mm3 (4.5-10.0)
[2022-02-06 13:49] LABS: Alanine Aminotransferase 8 U/L (6-35); Albumin Level 3.9 g/dL (3.5-5.1); Alkaline Phosphatase 113 U/L (38-126); Anion Gap 8 mmol/L (8-16); Aspartate Amino Transferase 17 U/L (14-36); Bilirubin,Total 0.4 mg/dL (0.2-1.3); Blood Urea Nitrogen 26 mg/dL (7-17); Calcium 8.5 mg/dL (8.4-10.2); Carbon Dioxide 25 mmol/L (22-30); Chloride 107 mmol/L (98-107); Estimated Glomerular Filt Rate 29; Glucose 106 mg/dL (65-110); Lipase 91 U/L (23-300); Potassium 3.5 mmol/L (3.4-5.0); Sodium 140 mmol/L (137-145)
[2022-02-06 14:25] LABS: Troponin I < 0.012 ng/mL (0.000-0.034)
[2022-02-06 15:48] VITALS: BP 163/60; PULSE 74; RESP 18; O2SAT 99
[2022-02-06] MEDS: ONDANSETRON INJ 4 MG/2 ML VIAL IV PUSH (16:24)
[2022-02-06] MEDS: MORPHINE SULFATE (*CRX) 4 MG/ML INJ IV PUSH (16:25)
[2022-02-06] MEDS: SODIUM CHLORIDE 0.9% IV 1,000 ML 150 ML IV CONT (16:25)
[2022-02-06] MEDS: BELLADONNA ALK/PHENOB ELIX 10 ML, MAG HYDROX/ALUMINUM HYD/SIMETH 30 ML, LIDOCAINE HCL 2... PO (17:44)
[2022-02-06] MEDS: LORazepam INJ (*CRX) 2 MG/ML VIAL 0.5 MG IV PUSH (17:45)
--- NOTE | 2022-02-06 17:55 | ED.ABDPAIN ---
HPI - Abdominal Pain General Chief Complaint: Abdominal Pain Stated Complaint: left side pain Time Seen by Provider: 02/06/22 15:58 Source: patient Mode of arrival: ambulatory Limitations: no limitations History of Present Illness HPI narrative: 76-year-old with a history of hypertension , hyperlipidemia, diabetes, anxiety disorder s/p left nephrectomy here with complaints of left upper abdominal pain which has been ongoing for last 3 to 4 months. Patient states that she has been seen in the ER and hospital for the same pain several times. She was also evaluated by Dr. Santiago. She denies any fever or chills has constant nausea. MD elicited complaint: abdominal pain Pertinent past history: none Onset (ago): month(s) (3) Pain Consistency: constant Location: LUQ Severity: moderate Quality: aching Radiation: LUQ Migration to: no migration Exacerbating factors: nothing Relieving factors: nothing Associated symptoms: nausea Related Data Home Medications Medication Instructions Recorded Confirmed blood sugar diagnostic (OneTouch 03/05/19 01/28/22 Ultra Blue Test Strip) topiramate 50 mg tablet 50 mg PO HS 03/05/19 01/28/22 amlodipine 5 mg tablet 5 mg PO DAILY 07/07/19 01/28/22 aspirin 81 mg tablet,delayed 81 mg PO DAILY 07/07/19 01/28/22 release (Aspir-) atorvastatin 20 mg tablet 20 mg PO DAILY 07/07/19 01/28/22 chlorthalidone 25 mg tablet 25 mg PO DAILY 07/07/19 01/28/22 levothyroxine 175 mcg tablet 175 mcg PO DAILY 07/07/19 01/28/22 insulin lispro protamine-lispro 30 unit subcut BID 12/31/20 01/28/22 100 unit/mL (75-25) subcutaneous pen (Humalog Mix 75-25 KwikPen) lorazepam 1 mg tablet 1 mg PO DAILY 10/10/21 01/28/22 Allergies Allergy/AdvReac Type Severity Reaction Status Date / Time No Known Allergies Allergy Verified 02/06/22 15:52 Review of Systems Review of Systems: All systems reviewed & are unremarkable except as noted in HPI and below Constitutional: Constitutional: Reports no additional constitutional complaints Eyes: Eyes: Reports no additional eye complaints ENT: Reports system reviewed and no additional complaints, except as documented Cardiovascular: Cardiovascular: Reports no additional cardiovascular complaints Respiratory: Respiratory: Reports no additional respiratory complaints Gastrointestinal: Gastrointestinal: Reports as per HPI Musculoskeletal: Musculoskeletal: Reports no additional musculoskeletal complaints Integumentary/Breasts: Skin/Breast: Reports system reviewed and no additional complaints, except as docu Neurologic: Reports system reviewed and no additional complaints, except as documented Psychiatric: Psychiatric: Reports no additional psychiatric complaints PMFSH Past Medical History Medical History Abdominal pain Anemia Anxiety Arm fracture, left Arthritis Carpal tunnel syndrome of right wrist Cataracts, bilateral CHF (congestive heart failure) Colon polyp Depression Elevated alkaline phosphatase level Fatigue Gastroparesis GERD (gastroesophageal reflux disease) HTN (hypertension) Hyperlipidemia Hypothyroid IBS (irritable bowel syndrome) Left upper quadrant abdominal swelling Nausea and vomiting Obese Panic disorder Polyp of stomach Stress incontinence Type II diabetes mellitus Uterine cancer UTI (urinary tract infection) Surgical History Surgical History H/O arthroscopy of right knee History of carpal tunnel release History of hysterectomy History of nephrectomy, left Hx of appendectomy Hx of cholecystectomy Hx of endoscopy x2 Hx of tonsillectomy Social History Social History Smoking status: Never smoker Lack of Transportation: No Lack of Food: Never True Current Housing: I Have Housing Concerned About Future Housing: No Difficulty Paying Gas/Electric Bills: No Dif
[2022-02-06 19:05] LABS: Add Urine Microscopic? NO; Appearance Urine Clear (Clear); Bilirubin Urine Negative (Negative); Blood Urine Negative (Negative); Color Urine Light Yellow (Yellow); Glucose Urine UA Negative (Negative); Ketones Urine Negative (Negative); Leukocyte Esterase Ur Negative LEU/UL (Negative); Nitrate Urine Negative (Negative); Protein Urine Negative (Negative); Urobilinogen Urine 0.2 mg/dL (<2.0); pH Urine 5.5 (5.0-9.0)
[2022-02-06 19:18] VITALS: BP 165/80; PULSE 75; RESP 18; O2SAT 99
== END 2022-02-06 19:19 | disposition home or self-care (01) ==
PROVIDERS: Emergency Provider Family Medicine; PCP Physician Assistant
DX: R10.12 Left upper quadrant pain (principal); G89.29 Other chronic pain; R11.2 Nausea with vomiting, unspecified; I11.0 Hypertensive heart disease with heart failure; I50.9 Heart failure, unspecified; E78.5 Hyperlipidemia, unspecified; E11.43 Type 2 diabetes mellitus with diabetic autonomic (poly)neuropathy; E03.9 Hypothyroidism, unspecified; K31.84 Gastroparesis; K21.9 Gastro-esophageal reflux disease without esophagitis; K58.9 Irritable bowel syndrome, unspecified; M19.90 Unspecified osteoarthritis, unspecified site; F32.A Depression, unspecified; F41.9 Anxiety disorder, unspecified; Z90.5 Acquired absence of kidney; Z90.710 Acquired absence of both cervix and uterus; Z85.42 Personal history of malignant neoplasm of other parts of uterus; Z86.010 Personal history of colon polyps; Z87.440 Personal history of urinary (tract) infections; Z86.2 Personal history of diseases of the blood and blood-forming organs and certain disorders involving the immune mechanism; Z79.4 Long term (current) use of insulin; Z79.82 Long term (current) use of aspirin; R94.31 Abnormal electrocardiogram [ECG] [EKG]; R93.421 Abnormal radiologic findings on diagnostic imaging of right kidney; K42.9 Umbilical hernia without obstruction or gangrene
CPT/HCPCS: 36415; 74176; 80053; 81003; 83690; 84484; 85025; 93005; 96361; 96374; 96375; 99284; A9270; J2060; J2270; J2405; J7030

== ENCOUNTER 2022-04-29 10:59 | Outpatient (CLI) | payer MEDICARE, SELFPAY ==
[2022-04-29 11:15] LABS: Hematocrit 42.1 % (37.0-47.0); Hemoglobin 13.7 g/dL (12.0-15.0); Mean Corpuscular HGB Conc 32.5 g/dl (32-36); Mean Corpuscular Hemoglobin 29.6 pg (26-34); Mean Corpuscular Volume 90.9 fl (80-100); Mean Platelet Volume 10.3 fl (7.4-10.4); Platelet Count Result 218 k/mm3 (150-375); Red Blood Count 4.63 M/mm3 (4.2-5.4); Red Cell Distribution Width 13.8 % (11.5-14.5)
[2022-04-29 11:27] LABS: Alanine Aminotransferase 8 U/L (6-35); Albumin Level 4.2 g/dL (3.5-5.1); Alkaline Phosphatase 109 U/L (38-126); Anion Gap 10 mmol/L (8-16); Aspartate Amino Transferase 20 U/L (14-36); Bilirubin,Total 0.5 mg/dL (0.2-1.3); Blood Urea Nitrogen 34 mg/dL (7-17); CRP 1.3 mg/dL (<1.0); Calcium 8.6 mg/dL (8.4-10.2); Carbon Dioxide 21 mmol/L (22-30); Chloride 109 mmol/L (98-107); Estimated Glomerular Filt Rate 33; Glucose 156 mg/dL (65-110); Sodium 140 mmol/L (137-145)
[2022-04-29 11:56] LABS: Erythrocyte Sedimentation Rate 19 mm/hr (0-20)
== END 2022-04-29 11:00 | disposition home or self-care (01) ==
PROVIDERS: PCP Physician Assistant; Visit Provider Nurse Practitioner Family
DX: R19.02 Left upper quadrant abdominal swelling, mass and lump (principal); R79.82 Elevated C-reactive protein (CRP); R10.9 Unspecified abdominal pain
CPT/HCPCS: 36415; 80053; 85027; 85652; 86140

== ENCOUNTER 2022-05-13 10:29 | Outpatient (CLI) | payer MEDICARE, SELFPAY ==
--- NOTE | ~2022-05-13 | MR_ITS ---
MRI of the abdomen: Clinical indication: Abdominal pain. Technique: Coronal SSFSE ARC, WATER:coronal LAVA-FLEX, Coronal 2D FIESTA FatSat, Axial SSFSE BH ARC, Axial 3D DualEcho BH, Axial SSFSE-IR, Axial DWI b=500, Axial 2D FIESTA FatSat, pre and dynamic postco ntrast Axial LAVA ARC, postcontrast Coronal In and Opposed phase LAVA FLEX. Patient refused IV contra st initiation. Findings: Patient is status post cholecystectomy. The common bile duct is nondilated. No filling defe cts are seen within the CBD. No evidence of intrahepatic biliary ductal dilatation. The pancreatic du ct is normal in size. Patient is status post presumed left nephrectomy. There is a 2.2 cm partially exophytic right renal m ass, which is T1 hyperintense, and essentially isointense to renal parenchyma on T2-weighted images. Liver, spleen, pancreas, and adrenal glands appear normal. The aorta and the paraaortic regions appea r normal. Impression: 2.2 cm right renal mass, as detailed above. This could represent hyperdense cyst, however solid mass/ neoplastic lesion is not excluded. Postcontrast imaging would be required to distinguish between thes e possibilities. Ultrasound could also be attempted to attempt to confirm cystic lesion, though this may be suboptimal given patient body habitus. Status post cholecystectomy and presumed left nephrectomy. Reviewed, dictated and finalized at [facility]. Impression: 2.2 cm right renal mass, as detailed above. This could represent hyperdense cys t, however solid mass/neoplastic lesion is not excluded. Postcontrast imaging w ould be required to distinguish between these possibilities. Ultrasound could a lso be attempted to attempt to confirm cystic lesion, though this may be subopt imal given patient body habitus. Status post cholecystectomy and presumed left nephrectomy.
== END 2022-05-13 10:30 | disposition home or self-care (01) ==
PROVIDERS: PCP Physician Assistant; Visit Provider Nurse Practitioner Family
DX: R19.02 Left upper quadrant abdominal swelling, mass and lump (principal); R10.12 Left upper quadrant pain; Z90.49 Acquired absence of other specified parts of digestive tract
CPT/HCPCS: 74181

== ENCOUNTER 2022-07-05 19:08 | Emergency (ER) | payer MEDICARE, SELFPAY ==
--- NOTE | ~2022-07-05 | CT_ITS ---
EXAMINATION: CT abdomen pelvis wo con DATE: 07/05/2022 21:42 INDICATION: Right flank pain TECHNIQUE: Computed tomography (CT) of the abdomen and pelvis was performed without intravenous contr ast. The dose-length product was 1443.48 mGy-cm. Automated exposure control and iterative reconstruct ion technique were employed. COMPARISON: CT dated 02/06/2022. FINDINGS: There is a 9 mm right middle lobe nodule. This is unchanged from prior CT. There is depende nt atelectasis. Heart size normal. No significant pleural or pericardial effusion. There is an indete rminate 2.7 cm right renal mass measuring 46 Hounsfield units. Status post cholecystectomy. The liver , spleen, pancreas, adrenal glands are unremarkable. Left kidney is surgically absent. No hydronephro sis. There is a punctate nonobstructing 2 mm right renal stone. Status post hysterectomy. Normal blad joshua. Small fat-containing umbilical hernia. Colonic diverticulosis without evidence for diverticuliti s. There is a fat-containing umbilical hernia. Nonobstructive bowel pattern. IMPRESSION: 1. Stable 9 mm right middle lobe nodule, likely benign. Follow-up CT chest in 12 months recommended. 2: Indeterminate 2.7 cm right renal mass. Cannot exclude malignancy. Recommend correlation with MRI w ithout and with contrast. 3: Nonobstructing right nephrolithiasis. Reviewed, dictated and finalized at location A. IMPRESSION: 1. Stable 9 mm right middle lobe nodule, likely benign. Follow-up CT chest in 1 2 months recommended. 2: Indeterminate 2.7 cm right renal mass. Cannot exclude malignancy. Recommend correlation with MRI without and with contrast. 3: Nonobstructing right nephrolithiasis.
[2022-07-05 19:20] VITALS: BP 162/92; PULSE 81; RESP 16; TEMP 36.9; O2SAT 100
[2022-07-05 19:41] LABS: Appearance Urine Clear (Clear); Bilirubin Urine Negative (Negative); Blood Urine Negative (Negative); Color Urine Yellow (Yellow); Glucose Urine UA Negative (Negative); Ketones Urine Negative (Negative); Leukocyte Esterase Ur Negative LEU/UL (Negative); Nitrate Urine Negative (Negative); Protein Urine Negative (Negative); Specific Grav Ur 1.012 (1.001-1.035); Urobilinogen Urine 0.2 mg/dL (<2.0); pH Urine 7.5 (5.0-9.0)
[2022-07-05 19:44] VITALS: BP 191/74; PULSE 78; RESP 17; TEMP 36.4; O2SAT 99
[2022-07-05 20:00] LABS: Add Urine Microscopic? NO
[2022-07-05 20:26] VITALS: BP 188/82; PULSE 68; RESP 12; O2SAT 98
--- NOTE | 2022-07-05 20:39 | ECG_ITS ---
Measurements Intervals [place] Rate: 70 P: 34 NV: 159 QRS: 33 QRSD: 82 T: 55 QT: 360 QTc: 390 Interpretive Statements SINUS RHYTHM BASELINE WANDER- I, III, AVR, AVL, AVF NORMAL ECG COMPARED TO ECG 02/06/2022 13:34:06 NO SIGNIFICANT CHANGES Electronically Signed On 07-05-2022 21:00:47 CDT by Sarbjit Guerrero D.O.
[2022-07-05] MEDS: SODIUM CHLORIDE 0.9% IV 2,000 ML 999 ML IV CONT (20:53)
[2022-07-05] MEDS: HYDROmorphone HCL INJ (*CRX) 1 MG/ML SYR 0.5 MG IV PUSH (20:54)
[2022-07-05] MEDS: methocarbamoL 750 MG TABLET PO (20:58)
[2022-07-05 21:01] LABS: Basophils Absolute Auto 0.1 K/mm3 (0.0-0.1); Basophils Percent Auto 0.5 % (0.2-1.2); Eosinophils Absolute Auto 0.5 K/mm3 (0-0.3); Hematocrit 45.3 % (37.0-47.0); Hemoglobin 14.7 g/dL (12.0-15.0); Immature Granulocyte Absolute 0.06 K/mm3 (0.00-0.031); Immature Granulocyte Percent A 0.5 % (0-0.5); Lymphocytes Absolute Auto 3.35 K/mm3 (0.9-3.2); Lymphocytes Percent Auto 26.2 % (18.3-44.2); Mean Corpuscular HGB Conc 32.5 g/dl (32-36); Mean Corpuscular Hemoglobin 29.8 pg (26-34); Mean Corpuscular Volume 91.9 fl (80-100); Mean Platelet Volume 10.4 fl (7.4-10.4); Monocytes Absolute Auto 0.8 K/mm3 (0.1-0.6); Monocytes Percent Auto 6.2 % (2.6-8.5); Neutrophils Percent Auto 62.6 % (45.5-73.1); Platelet Count Result 233 k/mm3 (150-375); Red Blood Count 4.93 M/mm3 (4.2-5.4); Red Cell Distribution Width 13.7 % (11.5-14.5); White Blood Count 12.8 K/mm3 (4.5-10.0)
[2022-07-05 21:13] LABS: Alanine Aminotransferase 17 U/L (6-35); Albumin Level 4.5 g/dL (3.5-5.1); Alkaline Phosphatase 115 U/L (38-126); Anion Gap 10 mmol/L (8-16); Aspartate Amino Transferase 24 U/L (14-36); Bilirubin,Total 0.5 mg/dL (0.2-1.3); Blood Urea Nitrogen 31 mg/dL (7-17); Calcium 8.3 mg/dL (8.4-10.2); Carbon Dioxide 26 mmol/L (22-30); Chloride 105 mmol/L (98-107); Estimated CRCL calculation 32 ml/min; Estimated Glomerular Filt Rate 33; Glucose 72 mg/dL (65-110); Lactic Acid Reflex 1.8 mmol/L (0.7-2.0); Lipase 556 U/L (23-300); Magnesium 2.3 mg/dL (1.6-2.3); Potassium 3.5 mmol/L (3.4-5.0); Sodium 141 mmol/L (137-145)
[2022-07-05 21:20] VITALS: BP 185/82; PULSE 68; RESP 17; O2SAT 100
[2022-07-05 22:27] VITALS: BP 165/71; PULSE 67; RESP 18; O2SAT 99
[2022-07-05 22:58] VITALS: BP 160/64; PULSE 71; RESP 16; O2SAT 98
--- NOTE | 2022-07-05 23:19 | ED.GENADULT ---
HPI - General Adult General Chief complaint: Back Pain/Injury Stated complaint: flank pain Time Seen by Provider: 07/05/22 20:20 History of Present Illness HPI narrative: This is a 77-year-old female presenting to ED with 2 weeks of right flank pain. is a stabbing pain on the right side that is 7 out 10 intensity and comes and goes. She has never had pain like this before. It is worse with movement and there are no alleviating factors. She has not taken any pain medication. She denies nausea vomiting diarrhea fever chills or urinary symptoms. Patient only has 1 kidney due to a kidney mass nephrectomy. Related Data Home Medications Medication Instructions Recorded Confirmed blood sugar diagnostic (OneTouch 03/05/19 04/29/22 Ultra Blue Test Strip) topiramate 50 mg tablet 50 mg PO HS 03/05/19 04/29/22 amlodipine 5 mg tablet 5 mg PO DAILY 07/07/19 04/29/22 aspirin 81 mg tablet,delayed 81 mg PO DAILY 07/07/19 04/29/22 release (Aspir-) atorvastatin 20 mg tablet 20 mg PO DAILY 07/07/19 04/29/22 chlorthalidone 25 mg tablet 25 mg PO DAILY 07/07/19 04/29/22 levothyroxine 175 mcg tablet 175 mcg PO DAILY 07/07/19 04/29/22 insulin lispro protamine-lispro 30 unit subcut BID 12/31/20 04/29/22 100 unit/mL (75-25) subcutaneous pen (Humalog Mix 75-25 KwikPen) lorazepam 1 mg tablet 1 mg PO DAILY 10/10/21 04/29/22 Allergies Allergy/AdvReac Type Severity Reaction Status Date / Time No Known Allergies Allergy Verified 05/06/22 10:11 [facility] Past Medical History Medical History Abdominal pain Anemia Anxiety Arm fracture, left Arthritis Carpal tunnel syndrome of right wrist Cataracts, bilateral CHF (congestive heart failure) Colon polyp Depression Elevated alkaline phosphatase level Elevated C-reactive protein (CRP) Elevated erythrocyte sedimentation rate Fatigue Gastroparesis GERD (gastroesophageal reflux disease) HTN (hypertension) Hyperlipidemia Hypothyroid IBS (irritable bowel syndrome) Left upper quadrant abdominal swelling Nausea and vomiting Obese Panic disorder Polyp of stomach Stress incontinence Type II diabetes mellitus Uterine cancer UTI (urinary tract infection) Surgical History Surgical History H/O arthroscopy of right knee History of carpal tunnel release History of hysterectomy History of nephrectomy, left Hx of appendectomy Hx of cholecystectomy Hx of endoscopy x2 Hx of tonsillectomy Social History Social History Smoking status: Never smoker Alcohol intake: never Substance use: never Substance use type: does not use Lack of Transportation: No Lack of Food: Never True Current Housing: I Have Housing Concerned About Future Housing: No Difficulty Paying Gas/Electric Bills: No Difficulty Paying for Meds: No Currently Unemployed: No Education: High School Diploma/GED Difficulty w/ Childcare or Family Care: No Living arrangements: alone Gender identity (if verbalized by the patient): Female Spiritual care concerns: No Exam Narrative: -Presentation: This is a 77-year-old female presented with right flank pain. 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 Lives alone. -External Chart Review: Review of previous ER notes for chronic abdominal pain -Hx from independent Sources: herb Gaffney at bedside. -Discussion of Management/Consultants: none -Independent interpretation of studies: white blood cell count mildly elevated- chronic. Metabolic panel unremarkable. mild elevations in lipase but patient clinically does not have pancreatitis. Kidney function at baseline. CT abdomen pelvis showed n
[2022-07-06 00:16] VITALS: BP 161/64; PULSE 70; RESP 15; O2SAT 99
[2022-07-06 00:39] VITALS: BP 185/78; PULSE 78; RESP 17; TEMP 36.6; O2SAT 98
== END 2022-07-06 00:40 | disposition home or self-care (01) ==
PROVIDERS: Emergency Provider Emergency Medicine; PCP Physician Assistant
DX: R10.9 Unspecified abdominal pain (principal); I11.0 Hypertensive heart disease with heart failure; I50.9 Heart failure, unspecified; E03.9 Hypothyroidism, unspecified; E78.5 Hyperlipidemia, unspecified; E11.9 Type 2 diabetes mellitus without complications
CPT/HCPCS: 36415; 74176; 80053; 81003; 83605; 83690; 83735; 85025; 93005; 96361; 96374; 99284; A9270; J1170; J7030

== ENCOUNTER 2022-07-20 10:30 | Outpatient (CLI) | payer MEDICARE, SELFPAY ==
--- NOTE | ~2022-07-20 | MR_ITS ---
EXAMINATION: MR abdomen wo/w con DATE: 07/20/2022 11:55 INDICATION: Neoplasm of uncertain behavior of the right kidney TECHNIQUE: Magnetic resonance imaging (MRI) of the abdomen was performed without and with 20 mL Multi carlita intravenous contrast. Sequences included coronal T2-weighted SS-FSE, coronal and axial FS 2D-F IESTA, axial STIR FSE, axial T2-weighted SS-FSE, axial T2-weighted FS SS-FSE, axial diffusion-weighte d SE, axial dual-echo T1-weighted FSPGR, and axial and coronal T1-weighted LAVA. Postcontrast axial T 1-weighted LAVA images were obtained in a time course. Postcontrast coronal T1-weighted LAVA images w ere obtained. COMPARISON: CT dated 07/05/2022 and MRI dated 05/13/2022 FINDINGS: Heart size is normal. No pericardial or pleural effusion. Susceptibility artifact associated with cho lecystectomy clips at the gallbladder fossa. Liver is normal. No intra or extrahepatic biliary ductal dilation. Pancreas, spleen and bilateral adrenal glands are normal. Status post left nephrectomy wit h left para-aortic foci of susceptibility artifact consistent with associated surgical clips. 2.6 cm complex proteinaceous/hemorrhagic right renal cyst which demonstrates increased T1 and low T2 signal with no evident enhancement on postcontrast images. There is a second smaller 8 mm nonenhancing prote inaceous/hemorrhagic cyst similar increased T1 and decreased T2 signal at the lower pole of the right kidney. Small fat-containing umbilical hernia. There is scattered colonic diverticulosis with sigmoi d predominance without evident surrounding from the ascending to suggest diverticulitis. No bowel obs truction. No pathologically enlarged abdominal or upper pelvic lymphadenopathy. T1 hyperintense fat s aturating hemangiomas at T12 and L1. Severe lumbar spondylosis. IMPRESSION: 1. A couple nonenhancing complex proteinaceous/hemorrhagic cysts in the right kidney measuring 8 mm a nd 2.6 cm. Reviewed, dictated and finalized at location A. IMPRESSION: 1. A couple nonenhancing complex proteinaceous/hemorrhagic cysts in the right k idney measuring 8 mm and 2.6 cm.
== END 2022-07-20 10:31 | disposition home or self-care (01) ==
PROVIDERS: PCP Physician Assistant; Visit Provider Urology
DX: D41.01 Neoplasm of uncertain behavior of right kidney (principal)
CPT/HCPCS: 74183; A9577

== ENCOUNTER 2022-11-18 11:51 | Outpatient (CLI) | payer MEDICARE, SELFPAY ==
--- NOTE | ~2022-11-18 | XR_ITS ---
EXAMINATION: XR thoracic spine 3V DATE: 11/18/2022 12:27 INDICATION: Thoracic back pain. TECHNIQUE: 3 views of the thoracic spine on 4 radiographs were obtained. COMPARISON: Chest CT 01/31/21 FINDINGS: There is 6 degrees dextrocurvature of thoracic spine. Vertebral body heights are normal. Th ere is severely decreased disc height at T6-T7. There are bridging endplate osteophytes at multiple l evels in the spine, consistent with diffuse idiopathic skeletal hyperostosis (DISH). There is surgica l clips in the abdomen. IMPRESSION: 1. Severe degenerative disc disease at T6-T7. 2. DISH. Reviewed, dictated and finalized at location E.
== END 2022-11-18 11:52 | disposition home or self-care (01) ==
PROVIDERS: PCP Physician Assistant; Visit Provider Nurse Practitioner Family
DX: M51.34 Other intervertebral disc degeneration, thoracic region (principal)
CPT/HCPCS: 72072

== ENCOUNTER 2023-06-11 11:02 | Outpatient (CLI) | payer MEDICARE, SELFPAY ==
--- NOTE | ~2023-06-11 | MM_ITS ---
EXAMINATION: MM diagnostic jessie BI w [facility] HISTORY: Breast pain TECHNIQUE: Additional 3-D tomosynthesis images of the breasts were performed and synthetic 2-D images were generated. CAD analysis was submitted and interpreted. COMPARISON: No prior studies for comparison. BREAST PARENCHYMAL COMPOSITION: Dense: The breasts are heterogeneously dense, which may obscure small masses FINDINGS: There are benign bilateral breast calcifications. There are no suspicious masses, calcifica tions or architectural distortion in either breast to suggest malignancy. IMPRESSION: 1. No evidence for malignancy in either breast. Dense breasts. 2. Recommend correlation with complete bilateral breast ultrasound. BI-RADS Category 0: Incomplete: Needs additional imaging evaluation. Reviewed, dictated and finalized at location B.
== END 2023-06-11 11:03 | disposition home or self-care (01) ==
PROVIDERS: Visit Provider Nurse Practitioner Family
DX: N64.4 Mastodynia (principal); R92.8 Other abnormal and inconclusive findings on diagnostic imaging of breast
CPT/HCPCS: 77062; 77066; G0279

== ENCOUNTER 2023-06-23 09:08 | Outpatient (CLI) | payer MEDICARE, SELFPAY ==
--- NOTE | ~2023-06-23 | US_ITS ---
US breast BI complete DATE: 06/23/2023 10:08 INDICATION: Breast pain. Dense fibroglandular stroma on June 11, 2023 screening mammogram examinatio n. TECHNIQUE: Real-time imaging and color-flow imaging of both complete breast gluteal 4 quadrants and s ubareolar area of each breast COMPARISON: June 11, 2023 bilateral diagnostic mammogram FINDINGS: No suspicious mass or shadowing of either breast is detected. Right breast: 6:00 5 cm from nipple: Oval circumscribed 4.6 x 3.4 x 4.7 mm isoechoic area without suspicious internet researcher al vascularity or shadowing, benign in appearance 7:00 4 cm from nipple: Similar circumscribed 3.3 x 2.7 x 3.2 mm hypoechoic area without internal vasc ularity or posterior shadowing, benign in appearance Left breast: 12:00 4 cm from nipple: Well-circumscribed hypoechoic 4.9 x 2 x 4.4 mm area without intravascular posterior shadowing, benign in appearance 2:00 9 cm from nipple: 3.6 x 4.3 x 6 mm multiseptated cyst 2:30 9 cm from nipple: 3.7 mm cyst 8:00 6 cm from nipple: 6.5 x 2.7 mm multiloculated cyst IMPRESSION: Benign findings Recommendation: Routine annual mammographic screening Reviewed, dictated and finalized at Location A. Reviewed, dictated and finalized at location A.
== END 2023-06-23 09:09 | disposition home or self-care (01) ==
PROVIDERS: Visit Provider Nurse Practitioner Family
DX: N64.4 Mastodynia (principal)
CPT/HCPCS: 76641

== ENCOUNTER 2023-07-14 17:42 | Emergency (ER) | payer MEDICARE, SELFPAY ==
--- NOTE | ~2023-07-14 | CT_ITS ---
EXAMINATION: CT brain wo con DATE: 07/14/2023 19:53 INDICATION: Headache and hypertension TECHNIQUE: Computed tomography (CT) of the head was performed without intravenous contrast. Sagittal and coronal reconstructions were performed. The mA was adjusted according to patient size. Iterative reconstruction technique was employed. The dose-length product was 605.33 mGy-cm. COMPARISON: head CT dated 10/17/2017 and brain MR dated 04/02/2018 FINDINGS: No acute intracranial hemorrhage, acute infarction or abnormal extra axial fluid collection. There is mild scattered white matter hypoattenuation consistent with chronic small vessel ischemic disease. Ventricles are normal and symmetric. No mass/mass effect. Changes of bilateral intraocular lens repla cement. The orbits, paranasal sinuses and mastoid air cells are normal. IMPRESSION: 1. Mild scattered white matter hypoattenuation consistent with chronic small vessel ischemic disease. Reviewed, dictated and finalized at location A. IMPRESSION: 1. Mild scattered white matter hypoattenuation consistent with chronic small ve ssel ischemic disease.
[2023-07-14 17:42] VITALS: BP 210/87; PULSE 100; RESP 16; TEMP 36.8; O2SAT 98
--- NOTE | 2023-07-14 19:36 | ECG_ITS ---
SEE SCANNED COPY FOR CONFIRMED REPORT MTDD
[2023-07-14 20:11] LABS: Basophils Absolute Auto 0.1 K/mm3 (0.0-0.1); Basophils Percent Auto 0.4 % (0.2-1.2); Eosinophils Absolute Auto 0.3 K/mm3 (0-0.3); Eosinophils Percent Auto 2.8 % (0-4.4); Hematocrit 42.7 % (37.0-47.0); Hemoglobin 14.1 g/dL (12.0-15.0); Immature Granulocyte Absolute 0.06 K/mm3 (0.00-0.031); Immature Granulocyte Percent A 0.5 % (0-0.5); Lymphocytes Absolute Auto 2.06 K/mm3 (0.9-3.2); Lymphocytes Percent Auto 17.4 % (18.3-44.2); Mean Corpuscular Hemoglobin 30.5 pg (26-34); Mean Corpuscular Volume 92.4 fl (80-100); Mean Platelet Volume 10.4 fl (7.4-10.4); Monocytes Absolute Auto 0.6 K/mm3 (0.1-0.6); Monocytes Percent Auto 5.2 % (2.6-8.5); Neutrophils Absolute Auto 8.7 K/mm3 (1.3-6.7); Neutrophils Percent Auto 73.7 % (45.5-73.1); Platelet Count Result 247 k/mm3 (150-375); Red Blood Count 4.62 M/mm3 (4.2-5.4); Red Cell Distribution Width 12.9 % (11.5-14.5); White Blood Count 11.9 K/mm3 (4.5-10.0)
[2023-07-14 20:21] LABS: Alanine Aminotransferase 14 U/L (6-35); Albumin Level 4.6 g/dL (3.5-5.1); Alkaline Phosphatase 137 U/L (38-126); Anion Gap 11 mmol/L (4-12); Aspartate Amino Transferase 19 U/L (14-36); Bilirubin,Total 0.4 mg/dL (0.2-1.3); Blood Urea Nitrogen 33 mg/dL (7-17); Calcium 8.7 mg/dL (8.4-10.2); Carbon Dioxide 23 mmol/L (22-30); Chloride 106 mmol/L (98-107); Estimated CRCL calculation 29 ml/min; Estimated Glomerular Filt Rate 29; Glucose 237 mg/dL (65-110); Potassium 3.7 mmol/L (3.4-5.0); Sodium 140 mmol/L (137-145)
[2023-07-14 20:33] LABS: NT Pro B Type Natriuretic Pept 381 pg/mL (19.9-100); Troponin I < 0.012 ng/mL (0.000-0.034)
[2023-07-14 22:14] VITALS: BP 199/88; PULSE 89; RESP 16; O2SAT 100
--- NOTE | 2023-07-14 23:31 | ED.GENADULT ---
HPI - General Adult General Chief complaint: Recheck/Abnormal Lab/Rx Stated complaint: high blood presure Time Seen by Provider: 07/14/23 23:10 History of Present Illness HPI narrative: Patient is an 78-year-old female who presents to the emergency department this evening complaining of an elevated blood pressure for the past week. Patient states that her blood pressure has been averaging around 190 systolic. Patient does have a history of hypertension and does take her blood pressure medication regularly. Patient states that today she developed headache which in addition to her elevated blood pressure was concerning for. Patient denies any chest pain or shortness of breath, she admits that she has been having some lower extremity that she has noticed intermittently, denies any history of CHF my denies any additional symptoms or concerns at this time including any focal weakness numbness and/or tingling. Patient also denies any changes in vision. Related Data Home Medications Medication Instructions Recorded Confirmed blood sugar diagnostic (OneTouch 03/05/19 04/29/22 Ultra Blue Test Strip) amlodipine 5 mg tablet 5 mg PO DAILY 07/07/19 04/29/22 aspirin 81 mg tablet,delayed 81 mg PO DAILY 07/07/19 04/29/22 release (Aspir-) atorvastatin 20 mg tablet 20 mg PO DAILY 07/07/19 04/29/22 chlorthalidone 25 mg tablet 25 mg PO DAILY 07/07/19 04/29/22 levothyroxine 175 mcg tablet 175 mcg PO DAILY 07/07/19 04/29/22 insulin lispro protamine-lispro 30 unit subcut BID 12/31/20 04/29/22 100 unit/mL (75-25) subcutaneous pen (Humalog Mix 75-25 KwikPen) lorazepam 1 mg tablet 1 mg PO DAILY 10/10/21 04/29/22 Allergies Allergy/AdvReac Type Severity Reaction Status Date / Time No Known Allergies Allergy Verified 07/14/23 22:19 Review of Systems Review of Systems: All systems are reviewed and are negative unless stated otherwise in the HPI. [facility] Past Medical History Medical History Abdominal pain Anemia Anxiety Arm fracture, left Arthritis Carpal tunnel syndrome of right wrist Cataracts, bilateral CHF (congestive heart failure) Colon polyp Depression Elevated alkaline phosphatase level Elevated C-reactive protein (CRP) Elevated erythrocyte sedimentation rate Fatigue Gastroparesis GERD (gastroesophageal reflux disease) HTN (hypertension) Hyperlipidemia Hypothyroid IBS (irritable bowel syndrome) Left upper quadrant abdominal swelling Nausea and vomiting Obese Panic disorder Polyp of stomach Stress incontinence Type II diabetes mellitus Uterine cancer UTI (urinary tract infection) Surgical History Surgical History H/O arthroscopy of right knee History of carpal tunnel release History of hysterectomy History of nephrectomy, left Hx of appendectomy Hx of cholecystectomy Hx of endoscopy x2 Hx of tonsillectomy Social History Social History Smoking status: Never smoker Alcohol intake: never Substance use: never Substance use type: does not use Do You Feel Safe in your Home?: Yes Lack of Transportation: No Lack of Food: Never True Current Housing: I Do Not Have Housing Concerned About Future Housing: No Difficulty Paying Gas/Electric Bills: No Difficulty Paying for Meds: No Currently Unemployed: YES Education: High School Diploma/GED Difficulty w/ Childcare or Family Care: No Living arrangements: alone Gender identity (if verbalized by the patient): Female Spiritual care concerns: No Exam Narrative: General: Alert, awake, afebrile, in no acute distress. HEENT: PERRL, no rhinorrhea, no post nasal drip, oropharynx clear, no temporal tenderness, no photophobia. Cardiovascular: Regular rate and rhythm, no murmurs, rubs or gallops, no peripheral edema. Respiratory: Clear to auscultation bilaterally, no tac
[2023-07-14 23:36] VITALS: BP 181/73; PULSE 88; RESP 20; O2SAT 98
[2023-07-14] MEDS: KETOROLAC 15 MG/ML VIAL (*BKC) IV PUSH (23:36)
[2023-07-14] MEDS: LABETALOL HCL INJ 100 MG/20 ML VIAL 20 MG IV PUSH (23:37)
[2023-07-14 23:48] VITALS: BP 148/61; PULSE 72; RESP 13; O2SAT 96
== END 2023-07-15 00:03 | disposition home or self-care (01) ==
PROVIDERS: Emergency Provider Emergency Medicine
DX: I10 Essential (primary) hypertension (principal); R51.9 Headache, unspecified; E11.43 Type 2 diabetes mellitus with diabetic autonomic (poly)neuropathy; K31.84 Gastroparesis; E78.5 Hyperlipidemia, unspecified; E03.9 Hypothyroidism, unspecified; N39.3 Stress incontinence (female) (male); K21.9 Gastro-esophageal reflux disease without esophagitis; M19.90 Unspecified osteoarthritis, unspecified site; F32.A Depression, unspecified; F41.0 Panic disorder [episodic paroxysmal anxiety]; Z86.010 Personal history of colon polyps; Z87.440 Personal history of urinary (tract) infections; Z85.42 Personal history of malignant neoplasm of other parts of uterus; Z79.82 Long term (current) use of aspirin; Z79.4 Long term (current) use of insulin; Z90.710 Acquired absence of both cervix and uterus; Z90.5 Acquired absence of kidney; Z90.49 Acquired absence of other specified parts of digestive tract; R94.31 Abnormal electrocardiogram [ECG] [EKG]
CPT/HCPCS: 36415; 70450; 80053; 83880; 84484; 85025; 93005; 96374; 96375; 99284; J1885

== ENCOUNTER 2024-03-24 11:18 | Outpatient (CLI) | payer MEDICARE, SELFPAY ==
[2024-03-24 12:01] LABS: Hemoglobin 13.2 g/dL (12.0-15.0); Mean Corpuscular HGB Conc 32.2 g/dl (32-36); Mean Corpuscular Hemoglobin 30.6 pg (26-34); Mean Corpuscular Volume 95.1 fl (80-100); Platelet Count Result 253 k/mm3 (150-375); Red Blood Count 4.31 M/mm3 (4.2-5.4); Red Cell Distribution Width 13.2 % (11.5-14.5); White Blood Count 9.1 K/mm3 (4.5-10.0)
--- OUTSIDE RECORDS SUMMARY | 2024-03-24 12:15 | XMS_ITS | CONTINUITY OF CARE DOCUMENT ---
Author Name serafin betancourt Address Unknown Organization [facility] Address [address] [place] [address] Phone [phone] Care Team Providers Care Screen Printing Supervisor Name Role Phone Jaswinder WINCHESTER, Mabel Unavailable Kip Krueger MD Unavailable [phone] Kip Krueger MD Unavailable PROBLEMS Condition Status Date Provider Notes Dizziness active Mabel San MD Renal failure, s/p nephrectomy active Medhat San MD Hypothyroidism active Mabel San MD Diabetes mellitus active Mabel San MD HTN essential active Mabel San MD Hypercholesterolemia active Mabel San MD SOB active Mabel San MD ENCOUNTERS Date Type Provider Location Encounter Diag nosis - In-person encounter Office Visit Mabel San MD [facility] SOBHypercholesterolemiaHTN essentialDiabetes mellitusHypothyroidismRenal failure, s/p nephrectomyDizziness VITAL SIGNS Date Observation Value Provider blood pressure, diastolic 57 mm[Hg] Me lani Champion blood pressure, systolic 125 mm[Hg] Madalyn Champion pulse rate 76 /min [place] Champion oxygen saturation, oximetry 99 % [facility] Champion respiratory rate E&M 14 /min [facility] Body Mass Index (Ratio) 36.39 kg/m2 Kendra Champion weight E&M 212 [lb_av] [facility]over Champion height E&M 64 [in_i] [facility]over Champion ALLERGIES No Known Drug Allergies RESULTS Date Observation Value Provider Reference Range Interpretation Location 8 thyroid stimulating hormone, serum 0.481 ??IU/ML [facility] 0.270 - 4.200 8 anion gap, serum 12.6 [facility] - 8 albumin/globulin ratio, serum 2.5 g/dL [facility] 1.1 - 2.5 8 globulin, serum 2.7 [facility] 2.3 - 3.8 8 urea nitrogen/creatinine ratio, serum 18.0 [facility] - 8 Estimated Glomerular Filtration Rate (calc) 36.3 (?) [facility] 59.0 - Low 8 chloride, serum 103.4 mmol/L [facility] 98.0 - 107.0 8 potassium, serum 4.0 mmol/L [facility] 3.5 - 5.1 8 sodium, serum 138.0 mmol/L [facility] 136.0 - 145.0 8 creatinine, serum 1.5 mg/dL [facility] 0.5 - 0.9 High 8 carbon dioxide, venous blood 22.0 mmol/L [facility] 23.0 - 31.0 Low 8 albumin, serum 4.1 g/dL [facility] 3.5 - 5.2 8 calcium, serum 8.5 mg/dL [facility] 8.6 - 10.2 Low 8 aspartate aminotransferase (SGOT), serum 15.0 1/L [facility] 0.0 - 32.0 8 alkaline phosphatase, serum 130.0 1/L [facility] 40.0 - 130.0 8 alanine aminotransferase (SGPT), serum 12.0 1/L [facility] 0.0 - 33.0 8 protein, total, serum 6.8 g/dL [facility] 6.6 - 8.7 8 bilirubin, serum, total 0.2 mg/dL [facility] 0.0 - 1.2 8 urea nitrogen, blood 27.0 mg/dL [facility] 8.0 - 23.0 High 8 blood glucose, random 221.0 mg/dL [facility] 74.0 - 99.0 High 8 red blood cell distribution width, size density 50.9 fL [facility] - 8 immature granulocytes, percentage of total cells, blood 0.3 % [facility] - 8 nucleated red blood cells as percent of blood leukocytes 0.0 % [facility] 8 red blood cell (erythrocyte) count, per high power field 0.0 10*3/UL [facility] eosinophils as percent of blood leukocytes 3.2 % [facility] - 8 neutrophils as percent of blood leukocytes 72.8 % [facility] - 8 Absolute Neutrophils 6.8 CELLS/UL [facility] 1.5 - 7.8 8 basophils as percent of blood leukocytes 0.4 % [facility] - 8 Absolute Basophils 0.0 CELLS/UL [facility] 0.0 - 0.2 8 monocytes as percent of blood leukocytes 5.6 % [facility] - 8 Absolute Monocytes 0.5 CELLS/UL [facility] 0.2 - 1.0 8 lymphocytes as percent of blood leukocytes 17.7 % [facility] - 8 Absolute Lymphocytes 1.7 CELLS/UL [facility] 0.9 - 3.9 8 mean platelet volume 10.5 (?) [facility] - 8 platelet count 350.0 THOUSAND/ UL [facility] 100.0 - 400.0 8 mean corpuscular hemoglobin concentration, RBC 26.8 G/DL [facility] 31.0 - 38.0 Low 8 mean corpuscular hemoglobin, RBC 19.9 pg [facility] 25.0 - 35.0 Low 8 mean corpuscular volume, RBC 74.2 fL [facility] 75.0 - 100.0 Low 8 hematocrit, blood 23.9 % [facility] 35.0 - 55.0 Critical low 8 hemoglobin, blood 6.4 g/dL [facility] 11.5 - 16.5 Critical low 8 erythrocyte count, whole blood 3.2 MILLION/U L [facility] 3.5 - 5.5 Low HISTORY OF MEDICATION USE Medication Status Instructions Dates Provider Indications Com ments METOPROLOL SUCCINATE ER TABLET EXTENDED RELEASE 24 HOUR active once daily [facility] LASIX 20 MG ORAL TABLET active once daily [facility] LIPITOR 10 MG ORAL TABLET active ONE TAB. DAILY [facility] Champion PAXIL 40 MG ORAL TABLET active once daily [facility] Champion LORAZEPAM 1 MG ORAL TABLET active as needed [facility] Champion GLIPIZIDE 5 MG ORAL TABLET active once daily [facility] Champion OMEPRAZOLE 40 MG ORAL CAPSULE DELAYED RELEASE active once daily Clover Champion LOSARTAN POTASSIUM 50 MG ORAL TABLET active po daily Mabel San MD NORVASC 10 MG ORAL TABLET active ONE TAB. DAILY [facility] Champion LANTUS SOLOSTAR 100 UNIT/ML SUBCUTANEOUS SOLUTION PEN-INJECTOR active daily Clover Champion LEVOTHYROXINE SODIUM 200 MCG ORAL TABLET active ONE TAB. DAILY [facility] Champion SOCIAL HISTORY Date Observation Value Provider social history reviewed E&M reviewed - no changes required Mabel San MD smoking status Never smoker [place] FAMILY HISTORY Family Member Condition Mother Negative FH of Coron claudio Artery Disease INSURANCE PROVIDERS Payer name Policy type / Coverage type [place] red green party ID [facility] MEDICARE COMPLETE HMO Other [id number] TREATMENT PLAN Date Name Performer Cardiology Mabel San MD Cardiology Mabel San MD Cardiology Mabel San MD Cardiology Mabel San MD Cardiology Mabel San MD Date Name TSH, 3RD GENERATION COMPREHENSIVE METABO LIC PANEL W/EGFR CBC (INCLUDES DIFF/P LT) HISTORY OF PROCEDURES Procedure Date Procedure Name Provider Procedure Notes S tatus BLOOD COUNT HEMOGLOBIN Mabel San MD completed FVC - 17533 Mabel San MD complete d FRC - 71740 Mabel San MD complete d DLCO - [id number] Mabel San MD complet ed EKG Mabel San MD completed SNOMED-CT: [id number] Current Medications Documented Mabel San MD completed
--- OUTSIDE RECORDS SUMMARY | 2024-03-24 12:15 | XMS_ITS | Clinical Summary ---
Author Organization [facility] [id number] [place] [id number] Care Team Providers Care Repair Mechanic Name Role Phone Robert Carter MD Primary Care Provider [phone] Vignesh Paniagua MD Unavailable [phone] Isac Kam MD Unavailable [phone] Allergies No known active allergies Medications amLODIPine (NORVASC) 5 mg tablet Take 1 tablet (5 mg total) by mouth daily Active atorvastatin (LIPITOR) 20 mg tablet Take 1 tablet (20 mg total) by mouth daily Active buPROPion XL (WELLBUTRIN XL) 150 mg 24 hr tablet Take 1 tablet (150 mg total) by mouth 2 (two) times a day Active chlorthalidone 25 mg tablet Take 1 tablet (25 mg total) by mouth daily Active levothyroxine (SYNTHROID) 175 mcg tablet Take 1,000 tablets (175,000 mcg total) by mouth daily Active pantoprazole DR (PROTONIX) 40 mg EC tablet Take 1 tablet (40 mg total) by mouth daily Active PARoxetine (PAXIL) 30 mg tablet Take 1 tablet (30 mg total) by mouth daily Active topiramate (TOPAMAX) 50 mg tablet Take 1 tablet (50 mg total) by mouth nightly Active aspirin 81 mg enteric coated tablet Take 1 tablet (81 mg total) by mouth daily Active pen needle, diabetic (Pen Needle) 31 gauge x 5/16 needleIndications: Type 2 diabetes mellitus with hyperglycemia, with long-term current use of insulin (HCC) Use to inject 3 times daily as directed 300 each 3 1 Active Viibryd 20 mg tablet Take 2 tablets one time every day 2 Active dicyclomine (BENTYL) 20 mg tablet TAKE 1 TABLET BY MOUTH THREE TIMES A DAY NEEDED FOR 30 DAYS 2 Active metoclopramide (REGLAN) 10 mg tablet PLEASE SEE ATTACHED FOR DETAILED DIRECTIONS 2 Active OLANZapine (ZyPREXA) 2.5 mg tablet 2 Active QUEtiapine (SEROquel) 25 mg tablet 2 Active carbidopa-levodopa (SINEMET) 25-100 mg per tablet Take 1 tablet by mouth 3 (three) times a day 2 Active erythromycin (E-MYCIN) 250 mg tablet TAKE 1 TABLET BY MOUTH THREE TIMES A DAY WITH MEALS FOR 4 WEEKS 2 Active sertraline (ZOLOFT) 100 mg tablet 2 Active BD Ultra-Fine Mini Pen Needle 31 gauge x 3/16 needle USE FOR INSULIN INJECTIONS TWO TIMES DAILY DIRECTED 2 Active ALPRAZolam (XANAX) 1 mg tablet Take by mouth every 12 (twelve) hours as needed 2 Active amitriptyline (ELAVIL) 25 mg tablet Take 1 tablet (25 mg total) by mouth nightly 2 Active hyoscyamine (LEVSIN) 0.125 mg tablet TAKE 1 TABLET BY MOUTH FOUR TIMES A DAY NEEDED FOR DYSPEPSIA 2 Active omeprazole (PriLOSEC) 40 mg capsule Take by mouth daily 2 Active ondansetron ODT (ZOFRAN-ODT) 4 mg disintegrating tablet DISSOLVE 1 TABLET ON THE TONGUE EVERY 6 HOURS NEEDED FOR NAUSEA/VOMITIN G 2 Active LORazepam (ATIVAN) 0.5 mg tablet 3 Active blood glucose diagnostic (glucose blood) stripIndications:T ype 2 diabetes mellitus with hyperglycemia, with long-term current use of insulin (HCC) One Touch Test Strips Test blood sugars three times every day Dx E11.65 insulin dependent 300 each 3 3 Active blood-glucose meter kitIndications:Typ e 2 diabetes mellitus with hyperglycemia, with long-term current use of insulin (HCC) One Touch Meter Use three times daily or as directed for monitoring of diabetes E11.65 insulin dependent 1 kit 3 Active insulin lispro protamine-insulin lispro 75/25 (HumaLOG 75/25 100 unit/mL) 100 unit/mL pen for injection DIAL AND INJECT 30 UNITS UNDER THE SKIN BEFORE BREAKFAST AND 25 UNITS BEFORE SUPPER. MAX DAILY DOSE 55 UNITS. 45 mL 3 Active semaglutide 0.25 mg or 0.5 mg (2 mg/3 mL) pen injector injectionIndicatio ns:Type 2 diabetes mellitus with hyperglycemia, with long-term current use of insulin ([facility]) Inject 0.25 mg under the skin once a week 3 mL 1 4 Active Active Problems Problem Noted Date Diagnosed Date Class 2 severe obesity due t o excess calories with serious comorbidity and body mass index (BMI) of 35.0 to 35.9 in adult 03/18/2022 Assessment & Plan (03/18/2022 11:15 AM PROFESSOR OF BUSINESS ADMINISTRATION): Chronic problem. Down 16# since 07/2021. Discussed healthy diet and importance of regular physical activity (20- 30min/day, 150min/wk). CKD stage 3 secondary to diabetes 03/17/2022 Assessment & Plan (03/17/2022 10:10 AM PROFESSOR OF BUSINESS ADMINISTRATION): Component Latest Ref Rng & Units 05/02/2021 eGFR mL/min/1.73 m2 31 Will continue to monitor. Anemia 11/07/2021 Anxiety 11/07/2021 Current tear of medial cartilage or meniscus of knee 11/07/2021 Depressive disorder 11/07/2021 Enthesopathy of hip region 11/07/2021 Gastric polyp 11/07/2021 Inflammatory disorder of extremity 11/07/2021 Kidney disease 11/07/2021 Knee pain 11/07/2021 Thoracic back pain 11/07/2021 History of nephrectomy 06/04/2020 Type 2 diabetes mellitus wit h hyperglycemia, with long-term current use of insulin 03/19/2020 Assessment & Plan (06/24/2022 12:28 PM CDT): Chronic problem, A1c at goal but evening BS remain elevated. HL 75/25 30 units before breakfast & 25 units before dinner (PAP) Ozempic 0.25mg weekly (PAP)--picked up today in office. States she will start next Thursday. Had DM eye exam summer 2021 at [facility]. Letter sent to get copy of report. Will update labs today. Verified phone #/address to contact re: results. Strive for regular exercise (30min most days) and diet (get at least 4-5 servings of fruit and veggies daily, avoid processed foods, increase lean protein intake and decrease carb portions as well as fruit juices, regular soda & desserts). Watch carbs and simple sugars. Check the feet daily for skin breakdown and infection. Assessment & Plan (03/18/2022 11:26 AM PROFESSOR OF BUSINESS ADMINISTRATION): Chronic problem, A1c at goal but evening BS remain elevated. Will increase morning HL 75/25 from 28 units to 30 units. Will keep dinner at 25 units. Please call with update in 3-4 weeks. Assessment & Plan (11/07/2021 11:12 AM CDT): Chronic problem, improving. No longer having any hypoglycemia. She is though having some severe GI issues, so will have her try holding the Ozempic for a month and see how she does. During this time, increase HL 75/25 to 25 units BID. She is not comfortable restarting Ozempic without talking to us, so she will call in a month with how she is doing and we can adjust medications at that time as needed. Assessment & Plan (08/08/2021 3:15 PM CDT): Chronic problem, not at goal. She gives h/o a few low blood sugar episodes, although none noted on her CBG logs. Her A1c is only 6.5% though, and she is 76 YO with high fall risk (due to Parkinson's), lives alone, and is on insulin and SFU. Lower HL 75/25 to 22 units BID. Aim for A1c to be closer to 7.5% to minimize risk of hypoglycemia. Told her to call right away if any more low blood sugar episodes and we will decrease further her medications. We discussed at length CGM but she declined, stated she tried it in the past and did not like it. Assessment & Plan (05/02/2021 2:30 PM PROFESSOR OF BUSINESS ADMINISTRATION): Chronic problem, not at goal with some hypoglycemia. Lower HL 75/25 to 27 units, if any persistent lows then decrease to 24 units BID. Work on decreasing donuts and other sweets. Update CMP and MA/Cr. Assessment & Plan (09/03/2020 2:52 PM CDT): Chronic, uncontrolled in past , improving significantly HbA1c Recent - 5.6 % - continue Ozempic to 0.5 mg SQ weekly - Keep taking Glipizide 10 mg oral twice daily with meals - take Humalog mix 75/25 Insulin - Take 30 units SQ twice daily with Breakfast and dinner - advised to cut back on insulin by 5-10 units if eating small meals or if patient having blood sugars less than 90 - check blood sugars before meals and bedtime - follow up in 4 months with BS log Assessment & Plan (04/30/2020 4:51 PM PROFESSOR OF BUSINESS ADMINISTRATION): Chronic, uncontrolled , improving HbA1c Recent - 8.2 % - continue Ozempic to 0.5 mg SQ weekly - Keep taking Glipizide 10 mg oral twice daily with meals - take Humalog mix 75/25 Insulin - Take 30-35 units SQ twice daily with Breakfast and dinner - check blood sugars before meals and bedtime - follow up in 3 months with BS log Assessment & Plan (03/19/2020 4:09 PM PROFESSOR OF BUSINESS ADMINISTRATION): Chronic, uncontrolled , worsening HbA1c Recent - 10.6 % Poor pt compliance to diet and DM - discussed about DM type 2, - patho physiology, short and longterm complications of uncontrolled DM, diet and exercise , importance on of BS monitoring, medications options ?? - discussed goal BS and A1c targets ?? - advise to start checking BS - before Meals and bedtime ?? - advise to work on healthy diet, avoid processed foods , increase vegetables and protein and cut back on carb portions and also avoid fruit juices and regular soda and desserts ?? - Increase Ozempic to 0.5 mg SQ weekly - Keep taking Glipizide 10 mg oral twice daily with meals - stop basaglar - start Humalog mix 75/25 Insulin - Take 30 units SQ twice daily with Breakfast and dinner - check blood sugars before meals and bedtime - demonstrated how to use Freestyle ashish CGM - follow up in 4 weeks with BS log Hypertension associated with diabetes 03/19/2020 Assessment & Plan (06/24/2022 12:27 PM CDT): Chronic problem. Currently taking chlorthalidone 25mg daily & amlodipine 5mg daily. No changes at this time. Will update labs today. Verified phone #/address to contact re: results. Assessment & Plan (03/17/2022 10:15 AM PROFESSOR OF BUSINESS ADMINISTRATION): Chronic problem. Currently taking chlorthalidone 25mg daily & amlodipine 5mg daily. No changes at this time. Assessment & Plan (05/02/2021 2:27 PM PROFESSOR OF BUSINESS ADMINISTRATION): Controlled on current medications, no changes. Assessment & Plan (09/03/2020 2:50 PM CDT): Chronic, well controlled Continue current medication Assessment & Plan (04/30/2020 4:48 PM PROFESSOR OF BUSINESS ADMINISTRATION): Chronic, well controlled Continue current medication Assessment & Plan (03/19/2020 4:09 PM PROFESSOR OF BUSINESS ADMINISTRATION): Chronic, well controlled Continue current medication Hyperlipidemia associated with type 2 diabetes mauro martin 03/19/2020 Assessment & Plan (06/24/2022 12:26 PM CDT): Chronic problem. Currently taking atorvastatin 20mg daily. Last lipid panel: 05/02/21 LDL=47, RC=839. Will update labs today. Verified phone #/address to contact re: results. Assessment & Plan (03/17/2022 10:11 AM PROFESSOR OF BUSINESS ADMINISTRATION): Chronic problem. Currently taking atorvastatin 20mg daily. Last LDL on 05/02/21=47. No changes at this time. Assessment & Plan (11/07/2021 10:47 AM CDT): Chronic problem. On statin therapy, no changes. Assessment & Plan (08/08/2021 3:13 PM CDT): Chronic problem. On statin therapy, no changes. Assessment & Plan (05/02/2021 2:28 PM PROFESSOR OF BUSINESS ADMINISTRATION): Chronic problem. On statin therapy, no changes. Update lipid panel. Assessment & Plan (09/03/2020 2:50 PM CDT): Patient on statin therapy LDL at goal Assessment & Plan (04/30/2020 4:47 PM PROFESSOR OF BUSINESS ADMINISTRATION): Patient on statin therapy Reviewed patient lipid panel results from today LDL at goal Assessment & Plan (03/19/2020 4:10 PM PROFESSOR OF BUSINESS ADMINISTRATION): Patient on statin therapy Reviewed recent lipid panel results Osteopenia 06/25/2016 Chronic renal insufficiency 05/21/2015 Assessment & Plan (09/03/2020 2:50 PM CDT): Recheck renal function Assessment & Plan (04/30/2020 4:49 PM PROFESSOR OF BUSINESS ADMINISTRATION): Chronic, stage 4 kidney disease Advised to follow with Nephrology Assessment & Plan (03/19/2020 4:10 PM PROFESSOR OF BUSINESS ADMINISTRATION): Chronic, stage 4 kidney disease Advised to follow with Nephrology Hypothyroidism 05/21/2015 Assessment & Plan (06/24/2022 12:26 PM CDT): Chronic problem. Currently taking levothyroxine 175mcg daily. Last labs 07/2021 chemically euthyroid. Verified that she uses mychart. Aware to check results/results letter in [place]. Will contact by phone if needed. Assessment & Plan (03/17/2022 10:12 AM PROFESSOR OF BUSINESS ADMINISTRATION): Chronic problem. Currently taking levothyroxine 175mcg daily. Last labs 07/2021 chemically euthyroid. No changes at this time. Assessment & Plan (11/07/2021 10:47 AM CDT): Clinically and biochemically euthyroid. No medication changes. Assessment & Plan (08/08/2021 3:13 PM CDT): Clinically and biochemically euthyroid. No medication changes. Update TFTs today and adjust dose as needed since it was borderline on last lab. Assessment & Plan (05/02/2021 2:30 PM PROFESSOR OF BUSINESS ADMINISTRATION): Clinically euthyroid. No medication changes. Update TSH. Assessment & Plan (09/03/2020 2:50 PM CDT): Continue current dose of levothyroxine therapy Recheck TSH Assessment & Plan (04/30/2020 4:47 PM PROFESSOR OF BUSINESS ADMINISTRATION): Last recent TSH WNL Continue current dose of levothyroxine therapy Assessment & Plan (03/19/2020 4:09 PM PROFESSOR OF BUSINESS ADMINISTRATION): Reviewed recent TSH test results, within normal limits Continue current dose of levothyroxine therapy Resolved Problems Problem Noted Date Diagnosed Date Resolved Date Morbid (severe) obesity due to excess calories 08/08/2021 03/17/2022 Class 2 severe obesity due t o excess calories with serious comorbidity and body mass index (BMI) of 37.0 to 37.9 in adult 03/19/2020 3 Assessment & Plan (09/03/2020 2:51 PM CDT): Chronic, improving slowly Discussed about healthy lifestyle habits advise to work on healthy diet, avoid processed foods , increase vegetables and protein and cut back on carb portions and also avoid fruit juices and regular soda and desserts Increase physical activity , recommend at least 150 min of aerobic activity per week and include resistance training 2 x weekly Assessment & Plan (04/30/2020 4:49 PM PROFESSOR OF BUSINESS ADMINISTRATION): Chronic, improving Counseled on diet and exercise Assessment & Plan (03/19/2020 4:10 PM PROFESSOR OF BUSINESS ADMINISTRATION): Chronic, worsening Discussed about healthy lifestyle habits advise to work on healthy diet, avoid processed foods , increase vegetables and protein and cut back on carb portions and also avoid fruit juices and regular soda and desserts Increase physical activity , recommend at least 150 min of aerobic activity per week and include resistance training 2 x weekly Dizziness 05/21/2015 03/17/2022 Shortness of breath 05/21/2015 03/17/19 23 Encounters Date Type Department Care Team Description 02/10/2024 Telephone [facility] Diabetes and Endocrinology [address] [place] [phone] Isac Kam MD Med Management (Ozempic) 12/28/2023 Telephone [facility] [address] [phone] Dulce Vargas MA from Last 3 Months Immunizations Name Administration Dates Next Due Influenza, Quadrivalent, Spl it, Intramuscular 01/22/2016 Influenza, Trivalent, High D ose, Split, Preservative Free, Intramuscular 12/22/2018,11/10/2014,11/09/2014,10/16,02/21/2009,10/31/2008 Influenza, Trivalent, IM (MDV) 11/08/2013 Pneumococcal Conjugate PCV 13 10/01/2016 Pneumococcal Polysaccharide PPV23 10/16/2015 Surgical History Surgery Date Site/Laterality Comments HYSTERECTOMY OTHER SURGICAL HISTORY vaginal cancer GALLBLADDER SURGERY APPENDECTOMY KIDNEY SURGERY Left non cancerous CATARACT EXTRACTION Left Medical History Medical History Date Comments Type 2 diabetes mellitus (HCC) Hypothyroidism Hypertension Hyperlipidemia Morbid obesity with BMI of 40.0-44.9, adult (HCC ) CKD (chronic kidney disease) stage 4, GFR 15-29 ml/min (CMS/HCC) (HCC) Parkinson's disease (HCC) Family History Medical History Relation Name Comments Diabetes Brother Diabetes Father Diabetes Mother Stomach cancer Mother Diabetes Sister Heart attack Sister Relation Name Status Comments Brother Father Mother Sister Social History Tobacco Use Types Packs/Day Years Used Date Smoking Tobacco: Never Smokeless Tobacco: Never Tobacco Cessation:Counseling Given: Not Answered Alcohol Use Standard Drinks/Week Comments Never 0 (1 standard drink = 0.6 oz pur e alcohol) AUDIT-C Answer Date Recorded Q1: How often do you have a drink containing alcohol? Never 08/08/2021 Q2: How many drinks containi ng alcohol do you have on a typical day when you are drinking? Patient does not drink Q3: How often do you have si x or more drinks on one occasion? Never 08/08/2021 PHQ-2 Answer Date Recorded PHQ-2 Total Score (If total score is 3 or more points, staff should administer the PHQ-9) 6 08/08/2021 Personal Safety Answer Date Recorded Getting School Help Needed Not on file 02/03 Comments No Sex and Gender Information Value Date Recorded Sex Assigned at Not on file Legal Sex Female 11:22 PM PROFESSOR OF BUSINESS ADMINISTRATION Gender Identity Not on file Sexual Orientation Not on file Obstetrics History Last Filed Vital Signs Vital Sign Reading Time Taken Comments Blood Pressure 112/62 06/24/2022 12:12 PM CDT Pulse 83 06/24/2022 11:50 AM CDT Temperature - - Respiratory Rate 18 06/24/2022 11:5 0 AM CDT Oxygen Saturation - - Inhaled Oxygen Concentration - - Weight 102.2 kg (225 lb 3.2 oz) 023 11:50 AM CDT Height 163.8 cm (5' 4.49 ) 06/24/2022 1 1:50 AM CDT Body Mass Index 38.07 06/24/2022 11:50 AM CDT Plan of Treatment Health Maintenance Due Date Last Done Comments Fall Risk Assessment 1945 Osteoporosis Screening-Bone Density Scan 1943 DTaP/Tdap/Td Vaccine (1 - Tdap) 1954 Hepatitis B Screening 1961 Zoster Vaccine (1 of 2) 1993 Well Visit 65+ 2008 Dilated Eye Exam 06/13/2021 06/13/2020 Depression Screening 08/08/2022 08/08/2021, 05/02/2021, 09/03/2020, Additional history exists Foot Exam 11/07/2022 11/07/2021, 08/23, 04/30/2020, Additional history exists Hemoglobin A1C 12/25/2022 06/24/2022, 02/24, 11/07/2021, Additional history exists Albumin Creatinine Ratio, Urine 06/25/2023 3, 05/02/2021 Lipid Panel 06/25/2023 06/24/2022, 04/23, 04/30/2020 eGFR 06/25/2023 06/24/2022, 05/02/2021 Influenza Vaccine (#1) 2023 9, 01/22/2016, 11/10/2014, Additional history exists Pneumococcal vaccine 65+ Completed 10/01/2016, 09/24 Procedures Procedure Name Priority Date/Time Associated Diagnosis Comments EGFR Routine 06/24/2022 12:45 PM CDT Type 2 diabetes mellitus with hyperglycemia, with long-term current use of insulin ([facility]) (HCC) Hypertension associated with diabetes (HCC) LIPID PANEL Routine 06/24/2022 12:45 PM CDT Type 2 diabetes mellitus with hyperglycemia, with long-term current use of insulin ([facility]) (HCC) Hyperlipidemia associated with type 2 diabetes mellitus ([facility]) ALBUMIN CREATININE RATIO, URINE Routine 06/24/2022 12:45 PM CDT Type 2 diabetes mellitus with hyperglycemia, with long-term current use of insulin ([facility]) ([facility]) POCT HEMOGLOBIN A1C Routine 06/24/2022 1 1:58 AM CDT Type 2 diabetes mellitus with hyperglycemia, with long-term current use of insulin ([facility]) ([facility]) DIABETIC EYE EXAM Routine 06/13/2020 from Last 3 Months or Most Recently Relevant to Health Maintenance Results * eGFR (06/24/2022 12:45 PM CDT) [facility] eGFR 34 mL/min/1. 73 m2 JEANETTE OG Comment: Interpretive Data Reference Interval Normal ?>/= 90 mL/min/1.73m2 Mildly decreased* ? 60 - 89 mL/min/1.73m2 Mildly to moderately decreased ?45 - 59 mL/min/1.73m2 Moderately to severely decreased ??30 - 44 mL/min/1.73m2 Severely decreased ?15 - 29 mL/min/1.73m2 Kidney Failure ?< 15 ??mL/min/1.73m2 *Relative to young adult level Estimated glomerular filtration rate is determined by the 2020 CKD-EPI equation recommended by the National Kidney Foundation (A Unifying Approach to GFR Estimation: Recommendations of the NKF-ASK Task Force on Reassessing the Inclusion of Race in Diagnosing Kidney Disease, JASN 2020). The CKD-EPI equation should not be used for patients with unstable renal function and has not been validated in children and those over 70. Current interpretive data was last reviewed 2020. Blood 06/24/2022 12:4 5 PM CDT 06/24/2022 6:35 PM CDT Nae Canseco NP LAB BLOOD ORDERABLES Mariza l Result Performing Organization Address [facility] Phone Number JEANETTE OG [phone] [address] Department [place] [address] * Albumin Creatinine Ratio, Urine (06/24/2022 12:45 PM CDT) Albumin Ur 13.0 mg/L JEANETTE OG Comment: Interpretive Data No reference range established. Current interpretive data was last revised 2018. Creatinine Ur 174.2 mg/dL JEANETTE OG Comment: Interpretive Data No reference range established. Current interpretive data was last revised 2018. Albumin Creatinine Ratio, Ur 7 1 - 29 mg/g JEANETTE OG Urine 06/24/2022 12:4 5 PM CDT 06/24/2022 6:25 PM CDT Nae Canseco NP LAB URINE ORDERABLES Mariza l Result JEANETTE [id number] [facility] [place] [address] * (ABNORMAL) Lipid panel (06/24/2022 12:45 PM CDT) Cholesterol 169 30 - 199 mg/dL JEANETTE OG Comment: Interpretive Data Ages < or = 19 years ??Acceptable: ? <170 mg/dL ??Borderline high: ??170-199 mg/dL ??High: ? >or= 200 mg/dL Ages > or = 20 years ??Desirable: ?<200 mg/dL ??Borderline high: ??200-239 mg/dL ??High: ? >or= 240 mg/dL Literature References: 1. Expert Panel on Integrated Guidelines for Cardiovascular Health and Risk Reduction in Children and Adolescents. Pediatrics 2011;128:S213 2. NCEP Expert Panel. Circulation 2004;110:227 Current Interpretive Data was last revised on 2017. Triglycerides 190(H) <=149 mg/dL JEANETTE OG Comment: Interpretive Data Ages < or = 9 years ??Acceptable: ? <75 mg/dL ??Borderline high: ??75-99 mg/dL ??High: ? >or= 100 mg/dL Ages 10 to 20 years ??Acceptable: ? <90 mg/dL ??Borderline high: ??90-129 mg/dL ??High: ? >or= 130 mg/dL Ages > or = 20 years ??Desirable: ?<150 mg/dL ??Borderline high: ??150-199 mg/dL ??High: ? 200-499 mg/dL ?Very high: ?? >or= 499 mg/dL Literature References: 1. Expert Panel on Integrated Guidelines for Cardiovascular Health and Risk Reduction in Children and Adolescents. Pediatrics 2011;128:S213 2. NCEP Expert Panel. Circulation 2004;110:227 Current Interpretive Data was last revised on 2017. HDL 58 >=40 mg/dL JEANETTE Comment: Interpretive Data Ages < or = 19 years ??Acceptable: ? >45 mg/dL ??Borderline low: ?? 40-45 mg/dL ??Low: ? <40 mg/dL Ages > or = 20 years ??Desirable: ?>or= 60 mg/dL ??Low: ? <40 mg/dL Literature References: 1. Expert Panel on Integrated Guidelines for Cardiovascular Health and Risk Reduction in Children and Adolescents. Pediatrics 2011;128:S213 2. NCEP Expert Panel. Circulation 2004;110:227 Current Interpretive Data was last revised on 2017. LDL, calculated 73 <=129 mg/dL JEANETTE Comment: Interpretive Data Ages < or = 19 years ??Acceptable: ? <110 mg/dL ??Borderline high: ??110-129 mg/dL ??High: ?>or= 130 mg/dL Ages > or = 20 years ??Optimal: ? <100 mg/dL ??Near optimal: ?100-129 mg/dL ??Borderline high: ?? 130-159 mg/dL ??High: ?>160 mg/dL Literature References: 1. Expert Panel on Integrated Guidelines for Cardiovascular Health and Risk Reduction in Children and Adolescents. Pediatrics 2011;128:S213 2. NCEP Expert Panel. Circulation 2004;110:227 Current Interpretive Data was last revised on 2017. Non-HDL Cholesterol 111 mg/dL JEANETTE Comment: Interpretive Data Ages < or = 19 years ??Acceptable: ?<120 mg/dL ??Borderline high: ??120-144 mg/dL ??High: ?>145 mg/dL Ages > or = 20 years ??When triglycerides are >200 mg/dL, Non-HDL cholesterol is a secondary target of ? therapy with treatment goals that are 30 mg/dL greater than the LDL cholesterol target. ? Literature References: 1. Expert Panel on Integrated Guidelines for Cardiovascular Health and Risk Reduction in Children and Adolescents. Pediatrics 2011;128:S213 2. NCEP Expert Panel. Circulation 2004;110:227 Current Interpretive Data was last revised on 2017. Chol/HDL ratio 3 CERSUSIE OG Blood 06/24/2022 12:4 5 PM CDT 06/24/2022 6:25 PM CDT Nae Canseco NP LAB BLOOD ORDERABLES Mariza l Result JEANETTE [address] [address] [place] [address] * (ABNORMAL) POCT hemoglobin A1c (06/24/2022 11:58 AM CDT) Hemoglobin A1C, POC 6.9 % Capillary blood 06/24/2022 1 1:58 AM CDT Nae Canseco NP POINT OF CARE TEST ORDERA BLES Final Result * Diabetic Eye Exam (06/13/2020) Historical Provider HEALTH MAINTENANCE Edited Result - Final from Last 3 Months or Most Recently Relevant to Health Maintenance Insurance [place] [address] [facility] Care Teams Repair Mechanic Relationship Specialty Start Date End Date Robert Carter MD [address] [place] [address] PCP - General Family Medicine 03/08/20 Vignesh Paniagua MD [address] [place] [address] Referring Physician Nephrology 04/18/20 [place] [id number] [address] Consulting Physician Endocrinology 04/18/20
--- OUTSIDE RECORDS SUMMARY | 2024-03-24 12:15 | XMS_ITS | Clinical Summary ---
Author Organization [facility] Address [address] [place] [address]. 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 Gender Identity Not on file Sexual Orientation Not on file Plan of Treatment Health Maintenance Due Date Last Done Comments PHQ-2 (Physician [place]) 1955 DTaP, Tdap and Td Vaccines ( 1 - Tdap) 1962 Zoster Vaccines (1 of 2) 1993 Annual Medicare Wellness Visit 2008 Dexa Scan (General) 2008 Pneumococcal Vaccine: 65+ Ye ars (1 of 1 - PCV) 2008 RSV Immunization or 60+ Years (1 - 1-dose 75+ series) 2018 COVID-19 Vaccine ( - 2023-2 5 season) 2023 Influenza Adult (#1) 2023 PHQ-2 (Physician [place]) 02/24/2024 Meningococcal B Vaccine Aged Out No l onger eligible based on patient's age to complete this topic Meningococcal Vaccine Aged Out No jorge hortensia eligible based on patient's age to complete this topic RSV Immunizations Under 20 Months Aged Out No longer eligible based on patient's age to complete this topic Insurance [employer] Care Teams Paymaster Of Purses Relationship Specialty Start Date End Date Marilyn Ponce PA [address] [place] [id number] PCP - General 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
--- OUTSIDE RECORDS SUMMARY | 2024-03-24 12:15 | XMS_ITS | Referral Summary ---
Author Organization [facility] Physician Office Building [address] [place] [id number] Care Team Providers Care Forwarder Operator Name Role Phone Robert Carter MD Primary Care Provider [phone] Vignesh Paniagua MD Unavailable [phone] Isac Kam MD Unavailable [phone] Encounters Date Type Department Care Team Description 02/10/2024 Telephone [facility] Diabetes and Endocrinology [facility] [place] [address] Isac Kam MD Med Management (Ozempic) 12/28/2023 Telephone [facility] Specialists [facility] [id number] [place] [address] [address], [place] [address] Dulce Vargas MA from Last 3 Months Allergies No known active allergies Medications amLODIPine [...] hyperglycemia, with long-term current use of insulin ([facility]) One Touch Test Strips Test blood sugars three times every day Dx E11.65 insulin dependent 300 each 3 3 Active blood-glucose meter kitIndications:Typ e 2 diabetes mellitus with hyperglycemia, with long-term current use of insulin ([facility]) One Touch Meter Use three times daily [...] hyperglycemia, with long-term current use of insulin ([facility]) Inject 0.25 mg under the skin once a week 3 mL 1 4 Active Active Problems Problem Noted Date Diagnosed Date Class 2 severe obesity due t o excess calories with serious comorbidity and body mass index (BMI) of 35.0 to 35.9 in adult 03/18/2022 Assessment & Plan (03/18/2022 11:15 AM GRAB HOOKER): Chronic problem. Down 16# since 07/2021. Discussed healthy diet and importance of regular physical activity (20- 30min/day, 150min/wk). CKD stage 3 secondary to diabetes 03/17/2022 Assessment & Plan (03/17/2022 10:10 AM GRAB HOOKER): Component Latest Ref Rng & Units 05/02/2021 [...] Had DM eye exam summer 2021 at [facility]. Letter sent to get copy of report. [...] infection. Assessment & Plan (03/18/2022 11:26 AM GRAB HOOKER): Chronic problem, A1c at goal but evening [...] it. 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 Currently taking chlorthalidone 25mg daily & amlodipine 5mg daily. No changes at this time. Will update labs today. Verified phone #/address to contact re: results. Assessment & Plan (03/17/2022 10:15 AM GRAB HOOKER): Chronic problem. Currently taking chlorthalidone 25mg daily & amlodipine 5mg daily. No changes at this time. Assessment & Plan (05/02/2021 2:27 PM GRAB HOOKER): Controlled on current medications, no changes. Assessment & Plan (09/03/2020 2:50 PM CDT): Chronic, well controlled Continue current medication Assessment & Plan (04/30/2020 4:48 PM GRAB HOOKER): Chronic, well controlled Continue current medication Assessment & Plan (03/19/2020 4:09 PM GRAB HOOKER): Chronic, well controlled Continue current medication Hyperlipidemia associated with type 2 diabetes mauro martin 03/19/2020 Assessment & Plan (06/24/2022 12:26 PM CDT): Chronic problem. Currently taking atorvastatin 20mg daily. Last lipid panel: 05/02/21 LDL=47, PJ=268. Will update labs today. Verified phone #/address to contact re: results. Assessment & Plan (03/17/2022 10:11 AM GRAB HOOKER): Chronic problem. Currently taking atorvastatin 20mg daily. Last LDL on 05/02/21=47. No changes at this time. Assessment & Plan (11/07/2021 10:47 AM CDT): Chronic problem. On statin therapy, no changes. Assessment & Plan (08/08/2021 3:13 PM CDT): Chronic problem. On statin therapy, no changes. Assessment & Plan (05/02/2021 2:28 PM GRAB HOOKER): Chronic problem. On statin therapy, no changes. Update lipid panel. Assessment & Plan (09/03/2020 2:50 PM CDT): Patient on statin therapy LDL at goal Assessment & Plan (04/30/2020 4:47 PM GRAB HOOKER): Patient on statin therapy Reviewed patient lipid panel results from today LDL at goal Assessment & Plan (03/19/2020 4:10 PM GRAB HOOKER): Patient on statin therapy Reviewed recent lipid panel results Osteopenia 06/25/2016 Chronic renal insufficiency 05/21/2015 Assessment & Plan (09/03/2020 2:50 PM CDT): Recheck renal function Assessment & Plan (04/30/2020 4:49 PM GRAB HOOKER): Chronic, stage 4 kidney disease Advised to follow with Nephrology Assessment & Plan (03/19/2020 4:10 PM GRAB HOOKER): Chronic, stage 4 kidney disease Advised to follow with Nephrology Hypothyroidism 05/21/2015 Assessment & Plan (06/24/2022 12:26 PM CDT): Chronic problem. Currently taking levothyroxine 175mcg daily. Last labs 07/2021 chemically euthyroid. Verified that she uses [employer]. Aware to check results/results letter in [employer]. Will contact by phone if needed. Assessment & Plan (03/17/2022 10:12 AM GRAB HOOKER): Chronic problem. Currently taking levothyroxine 175mcg daily. [...] lab. Assessment & Plan (05/02/2021 2:30 PM GRAB HOOKER): Clinically euthyroid. No medication changes. Update TSH. Assessment & Plan (09/03/2020 2:50 PM CDT): Continue current dose of levothyroxine therapy Recheck TSH Assessment & Plan (04/30/2020 4:47 PM GRAB HOOKER): Last recent TSH WNL Continue current dose of levothyroxine therapy Assessment & Plan (03/19/2020 4:09 PM GRAB HOOKER): Reviewed recent TSH test results, within normal [...] weekly Assessment & Plan (04/30/2020 4:49 PM GRAB HOOKER): Chronic, improving Counseled on diet and exercise Assessment & Plan (03/19/2020 4:10 PM GRAB HOOKER): Chronic, worsening Discussed about healthy lifestyle habits [...] 05/21/2015 03/17/2022 Shortness of breath 05/21/2015 03/17/19 Immunizations Name Administration Dates Next Due Influenza, Quadrivalent, Spl it, Intramuscular 01/22/2016 Influenza, Trivalent, High D ose, Split, Preservative Free, Intramuscular 12/22/2018,11/10/2014,11/09/2014,10/16,02/21/2009,10/31/2008 Influenza, Trivalent, IM (MDV) 11/08/2013 Pneumococcal Conjugate PCV 13 10/01/2016 Pneumococcal Polysaccharide PPV23 10/16/2015 Social History Tobacco Use Types Packs/Day Years [...] on file Legal Sex Female 11:22 PM GRAB HOOKER Gender Identity Not on file Sexual Orientation Not on file Last Filed Vital Signs Vital Sign Reading [...] 06/24/2022 11:50 AM CDT Plan of Treatment Not on file Procedures Procedure Name Priority Date/Time Associated Diagnosis Comments EGFR Routine 06/24/2022 12:45 PM CDT Type 2 diabetes mellitus with hyperglycemia, with long-term current use of insulin ([facility]) ([facility]) Hypertension associated with diabetes ([facility]) LIPID PANEL Routine 06/24/2022 12:45 PM CDT Type 2 diabetes mellitus with hyperglycemia, with long-term current use of insulin ([facility]) ([facility]) Hyperlipidemia associated with type 2 diabetes mellitus (H[facility]) ALBUMIN CREATININE RATIO, URINE Routine 06/24/2022 12:45 PM CDT Type 2 diabetes mellitus with hyperglycemia, with long-term current use of insulin ([facility]) ([facility]) POCT HEMOGLOBIN A1C Routine 06/24/2022 1 1:58 AM CDT Type 2 diabetes mellitus with hyperglycemia, with long-term current use of insulin ([facility]) ([facility]) DIABETIC EYE EXAM Routine 06/13/2020 from Last 3 Months or Most Recently Relevant to Health Maintenance Results * eGFR (06/24/2022 12:45 PM CDT) [facility] eGFR 34 mL/min/1. 73 m2 JEANETTE OG [...] 5 PM CDT 06/24/2022 6:35 PM CDT us Nae Canseco FLIGHT MANAGER LAB BLOOD ORDERABLES Mariza gr Result JEANETTE [address] [address] Department [place] [address] * Albumin Creatinine Ratio, Urine (06/24/2022 12:45 [...] 5 PM CDT 06/24/2022 6:25 PM CDT us Nae Canseco FLIGHT MANAGER LAB URINE ORDERABLES Mariza maile Result LINOSUSIE [address] [place] [address] * (ABNORMAL) Lipid panel (06/24/2022 12:45 PM CDT) Cholesterol 169 30 - 199 mg/dL JEANETTE Comment: Interpretive Data Ages < [...] on 2017. Non-HDL Cholesterol 111 mg/dL JEANETTE OG Comment: Interpretive Data Ages [...] last revised on 2017. Chol/HDL ratio 3 CERNER Blood 06/24/2022 12:4 5 PM CDT 06/24/2022 6:25 PM CDT us Nae Canseco NP LAB BLOOD ORDERABLES Mariza l Result JEANETTE [address] [address] Department [place] [address] * (ABNORMAL) POCT hemoglobin A1c (06/24/2022 11:58 AM CDT) Hemoglobin A1C, POC 6.9 % Capillary blood 06/24/2022 1 1:58 AM CDT us Nae Canseco NP POINT OF CARE TEST ORDERA BLES Final Result * Diabetic Eye Exam (06/13/2020) us Historical Provider HEALTH MAINTENANCE Edited Result - Final from Last 3 Months or Most Recently Relevant to Health Maintenance Insurance [facility] Care Teams Forwarder Operator Relationship Specialty Start Date End Date Robert Carter MD [address] [place] [address] PCP - General Family Medicine 03/08/20 Vignesh Paniagua MD [address] [place] [address] Referring Physician Nephrology 04/18/20 [place] [id number] [address] Consulting Physician Endocrinology 04/18/20
--- OUTSIDE RECORDS SUMMARY | 2024-03-24 12:16 | XMS_ITS | Patient Health Record ---
Author Organization [facility] [place] Address [address] [place] [address] Care Team Providers Care Cane Flume Watcher Name Role Phone ROSIE ROSSI PA-C Primary Care Provider Paulo Middleton Unavailable [phone] Migration, Provider Unavailable Unavailable Allergies No Known Allergies Results Component Value Reference Range Notes DRUG SCREEN, 14 DRUGS (DETEC TIMED), URINE Reviewed date:07/09/2023 12:00:00 AM Interpretation: Performing Lab: Notes/Report: Amphetamine negative Barbiturates negative Benzodiazipine positive Buprenorphine negative Cocaine negative MDMA/Ectasy negative Methadone negative Methamphetamine negative Morphine negative note +Bzo Oxycodone negative Phenocyclidine negative THC negative UDT Reviewed date:08/20/2023 11:35:55 AM Interpretation: Performing Lab: Notes/Report: THC neg 0 - 50 ng/ml Cocaine neg Amphetamine neg Buprenorphine (BUP) neg Secobarbital (Bar) neg Oxazepam (BZO) pos 1-dlysjinqum-8,2-xwkeccgf-2, 3-diphenylpyrrolidine (EDDP) neg Methamphetamine (MET) neg Methylenedioxymethamphetamine (MDMA) neg Morphine (MOP 300/QOH3588) neg Methadone (MTD) neg Phencyclidine (PCP) neg Propoxyphene (PPX) neg Nortriptyline (TCA) neg UDT Reviewed date:03/17/2024 12:08:30 PM Interpretation: Performing Lab: Notes/Report: THC N 0 - 50 ng/ml Cocaine N 0 - 300 ng/ml Amphetamine N 0 - 1000 ng/ml Buprenorphine (BUP) N 0 - 10 ng/ml Secobarbital (Bar) N 0 - 300 ng/ml Oxazepam (BZO) P 0 - 300 ng/ml 2-tlkdaytfch-2,1-zejrqyri-0, 3-diphenylpyrrolidine (EDDP) N 0 - 300 ng/ml Methamphetamine (MET) N 0 - 1000 ng/ml Methylenedioxymethamphetamine (MDMA) N 0 - 500 ng/ml Morphine (MOP 300/[id number]) N 0 - 300 ng/ml Methadone (MTD) N 0 - 300 ng/ml Phencyclidine (PCP) N 0 - 25 ng/ml Propoxyphene (PPX) N 0 - 300 ng/ml Nortriptyline (TCA) N 0 - 1000 ng/ml Oxycodone N 0 - 300 ng/ml UDT Reviewed date:11/26/2023 10:41:15 AM Interpretation: Performing Lab: Notes/Report: THC n 0 - 50 ng/ml Cocaine n 0 - 300 ng/ml Amphetamine n 0 - 1000 ng/ml Buprenorphine (BUP) n 0 - 10 ng/ml Secobarbital (Bar) n 0 - 300 ng/ml Oxazepam (BZO) p 0 - 300 ng/ml 3-rjrtazqjjw-4,2-lcsxahoi-4, 3-diphenylpyrrolidine (EDDP) n 0 - 300 ng/ml Methamphetamine (MET) n 0 - 1000 ng/ml Methylenedioxymethamphetamine (MDMA) n 0 - 500 ng/ml Morphine (MOP 300/[id number]) n 0 - 300 ng/ml Methadone (MTD) n 0 - 300 ng/ml Phencyclidine (PCP) n 0 - 25 ng/ml Propoxyphene (PPX) n 0 - 300 ng/ml Nortriptyline (TCA) n 0 - 1000 ng/ml Oxycodone n 0 - 300 ng/ml Reason For Referral No Information Medications Medication SIG (Take, Route, Frequency, Duration) Notes Start Date End Date Status PARoxetine HCl 30 MG 1 tablet at bedtime Oral Once a day for 90 days Active LORazepam 0.5 MG 1 tablet Oral three times a day for 30 days 03/17/2024 Active QUEtiapine Fumarate 100 MG 1 tablet at bedtime Oral Once a day for 90 days Active Ozempic (0.25 or 0.5 MG/DOSE) 2 MG/3ML as directed Subcutaneous Active amLODIPine Besylate 10 MG TAKE 1 TABLET BY MOUTH EVERY DAY IN THE MORNING Oral for 90 Days Active buPROPion HCl ER (XL) 300 MG 1 tablet in the morning Orally Once a day for 90 days Active Metoprolol Succinate ER 50 MG Oral for 90 Days Active Chlorthalidone 25 MG TAKE 1 TABLET BY MOUTH EVERY DAY Oral for 90 Days Active Levothyroxine Sodium 175 MCG Oral for 90 Days Active Topiramate 50 MG TAKE 1 TABLET BY MOUTH EVERYDAY AT BEDTIME Oral for 90 Days Active Pantoprazole Sodium 40 MG TAKE 1 TABLET BY MOUTH EVERY DAY Oral for 90 Days Active Atorvastatin Calcium 20 MG TAKE 1 TABLET BY MOUTH EVERY DAY Oral for 90 Days Active buPROPion HCl ER (XL) 300 MG 1 tablet in the morning Orally Once a day for 30 days Active buPROPion HCl ER (XL) 150 MG 1 tablet in the morning Orally Once a day for 7 days after increase to 300 mg after increase to 300 mg 11/26/2023 Active Immunizations Vaccine Route Administration Date Status Comme nts Pfizer [employer] Covid-19 Vac cine 2nd dose Unknown 06/02/2020 Administered Pfizer [employer] Covid-19 Vac cine 2nd dose Unknown 06/23/2020 Administered Pfizer [employer] Covid-19 Vac cine 2nd dose Unknown 02/25/2021 Administered Social History Tobacco Use: Social History Observation Description Date Details (start date - stop date) Never Smoker NA - NA Sex Assigned At : Social History Observation Description Sex Assigned At Female Tobacco Control (Standard) Question Answer Notes Tobacco use: Nonsmoker AUDIT-C (Standard) Question Answer Notes Did you have a drink containing alcohol in the p ast year? 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) 4 Active confirmed Problem Type 2 diabetes mellitus (23537483) Type 2 diabetes mellitus (E11.9) 1 Active confirmed Problem Chronic kidney disease (077355071) Chronic kidney disease (N18.9) 4 Active confirmed Problem Hypertension (72403021) Hypertension (I10) 1 Active confirmed Problem History of nephrectomy (05486249171531) History of nephrectomy (Z90.5) 1 Active confirmed Vital Signs Heart Rate 80 /min 03/17/2024 Height-cm 162.56 cm 03/17/2024 Blood pressure diastolic 72 mm Hg 03/17/2024 Weight-kg 109.32 kg 11/26/2023 Height 64.00 in 03/17/2024 Blood pressure systolic 134 mm Hg 03/17/2024 Weight 241 lbs 11/26/2023 BMI 41.36 kg/m2 11/26/2023 Encounters Encounter Location Date Provider Diagnosis [facility] [employer] [facility] [address] [facility] [address] [address] 07/09/2023 Paulo Akers Major depressive disorder, recurrent, mild F33.0 ; Generalized anxiety disorder F41.1 and Panic disorder [episodic paroxysmal anxiety] without agoraphobia F41.0 [facility] [employer] [place] [id number] [facility] [address] [address] 08/20/2023 Paulo Akers Type 2 diabetes mellitus E11.9 ; Major depressive disorder, recurrent, mild F33.0 ; Hypertension I10 ; History of nephrectomy Z90.5 ; Chronic kidney disease N18.9 ; Generalized anxiety disorder F41.1 and Panic disorder [episodic paroxysmal anxiety] without agoraphobia F41.0 [facility] [employer] [facility] [address] [facility] [address] [address] 11/26/2023 Paulo Akers Major depressive disorder, recurrent severe without psychotic features F33.2 ; Type 2 diabetes mellitus E11.9 ; Hypertension I10 ; History of nephrectomy Z90.5 ; Chronic kidney disease N18.9 ; Generalized anxiety disorder F41.1 and Panic disorder [episodic paroxysmal anxiety] without agoraphobia F41.[address] [facility] [address] [facility] [address] [address] 12/31/2023 Paulojadyn Akers Major depressive disorder, recurrent severe without psychotic features F33.2 ; Type 2 diabetes mellitus E11.9 ; Hypertension I10 ; History of nephrectomy Z90.5 ; Chronic kidney disease N18.9 ; Generalized anxiety disorder F41.1 and Panic disorder [episodic paroxysmal anxiety] without agoraphobia F41.0 [facility] [employer] [facility] [address] [place] [address] 03/17/2024 Paulo Akers Major depressive disorder, recurrent severe without psychotic features F33.2 ; Type 2 diabetes mellitus E11.9 ; Hypertension I10 ; History of nephrectomy Z90.5 ; Chronic kidney disease N18.9 ; Generalized anxiety disorder F41.1 and Panic disorder [episodic paroxysmal anxiety] without agoraphobia F41.0 [facility] [employer] [facility] [address] [place] [address] 04/14/2023 Provider [facility], [facility] [address] [place] [address] 05/11/2023 Provider [facility], [facility] [address] [place] [address] 05/15/2023 Provider [facility] [employer], [facility] [address] [facility] [address] [place] [address] 05/26/2023 Provider [facility] [employer], [facility] [address] [place] [address] 07/11/2023 [facility] [employer] [facility] [address] [place] [address] 07/12/2023 [facility] [employer], [facility] [address] [place] [address] 11/26/2023 [facility] [address] [place] [address] 12/30/2023 Paulo Akers Assessments Encounter Date Diagnosis (ICD Code) Assessment Notes Treatment Notes Treatment Clinical Notes Section Notes 07/09/2023 Major depressive disorder, recurrent, mild (ICD-10 - F33.0) 07/09/2023 Generalized anxiety disorder (ICD-10 - F41.1) 07/09/2023 Panic disorder [episodic paroxysmal anxiety] without agoraphobia (ICD-10 - F41.0) 08/20/2023 Major depressive disorder, recurrent, mild (ICD-10 - F33.0) Depression - Assessment: Patient reports no significant change in mood over the past month. - Plan: - Continue current medications: Paxil 30 mg daily, Trazodone 50 mg nightly. - Encourage the patient to consider counseling when ready; discuss further at the next visit. Anxiety - Assessment: Patient experiencing increased anxiety due to family issues. - Plan: - Continue Lorazepam 0.5 mg three times a day. - Consider referral to a therapist for trauma work or day-to-day coping strategies; patient to consider and discuss at the next visit. Hypertension - Assessment: Patient reports blood pressure was controlled until recently. - Plan: - Continue current medications: Metoprolol 50 mg, Amlodipine, Chlorthalidone. - Encourage patient to monitor blood pressure and follow up with primary care provider if needed. Dizziness/Off balance - Plan: - Continue Topiramate as prescribed. - Monitor symptoms and discuss at the next visit. Hypothyroidism - Plan: - Continue Levothyroxine as prescribed. - Follow up with primary care provider for regular thyroid function monitoring. Follow-up - Plan: - Schedule a follow-up appointment in three months. - Reevaluate the need for counseling and discuss the patient's readiness for therapy at the next visit. 11/26/2023 Major depressive disorder, recurrent severe without psychotic features (ICD-10 - F33.2) Major Depressive Disorder, Recurrent, Severe - Assessment: Patient reports worsening depression with persistent sadness, crying, lack of motivation, and thoughts of . Patient mentions feeling sad all the time, having no laughter, and feeling like a failure. - Plan: - Continue paroxetine 30 mg daily and quetiapine 50 mg at bedtime. - Add bupropion, starting at 150 mg daily for one week, then increasing to 300 mg daily. - Reevaluate in 2-3 weeks. Treatment-Resista nt Depression - Assessment: Patient has tried multiple antidepressants with limited success, including sertraline, Ruxulti, Viibryd, and Effexor. - Plan: - Consider transcranial magnetic stimulation therapy (TMS) as an adjunct treatment. - Submit necessary forms to insurance for approval and discuss with the patient at the next visit. - Explained TMS process and potential benefits to the patient. Anxiety - Assessment: Patient reports anxiety, but no significant changes since the last visit. Patient expressed concern about nasal spray treatment potentially increasing anxiety. - Plan: - Continue current medications (paroxetine and quetiapine) and monitor for changes in anxiety levels. Social Isolation and Lack of Support - Assessment: Patient lives alone and has limited contact with her son due to his busy schedule with work and children. Patient reports having no friends and feeling lonely. - Plan: - Encourage the patient to engage in activities outside the home and explore opportunities for social support. - Revisit the possibility of counseling or therapy, potentially with a different therapist. Patient had only 1-2 sessions with previous therapists. Diabetes - Assessment: Patient reports difficulty with appetite and eating regularly, but acknowledges the need to eat due to diabetes. - Plan: - Encourage the patient to maintain a consistent eating schedule and monitor blood sugar levels. - Continue current diabetes management plan and reevaluate at the next visit. Fatigue - Assessment: Patient reports persistent fatigue and lack of energy, wanting to lay down all the time. - Plan: - Monitor for improvements in energy levels with the addition of bupropion and potential TMS therapy. - Reevaluate at the next visit. Follow-up - Plan: Schedule a follow-up appointment in 2-3 weeks to assess the patient's response to the addition of bupropion and discuss the potential for TMS therapy if approved by insurance. 08/20/2023 Type 2 diabetes mellitus (ICD-10 - E11.9) Depression - Assessment: Patient reports no significant change in mood over the past month. - Plan: - Continue current medications: Paxil 30 mg daily, Trazodone 50 mg nightly. - Encourage the patient to consider counseling when ready; discuss further at the next visit. Anxiety - Assessment: Patient experiencing increased anxiety due to family issues. - Plan: - Continue Lorazepam 0.5 mg three times a day. - Consider referral to a therapist for trauma work or day-to-day coping strategies; patient to consider and discuss at the next visit. Hypertension - Assessment: Patient reports blood pressure was controlled until recently. - Plan: - Continue current medications: Metoprolol 50 mg, Amlodipine, Chlorthalidone. - Encourage patient to monitor blood pressure and follow up with primary care provider if needed. Dizziness/Off balance - Plan: - Continue Topiramate as prescribed. - Monitor symptoms and discuss at the next visit. Hypothyroidism - Plan: - Continue Levothyroxine as prescribed. - Follow up with primary care provider for regular thyroid function monitoring. Follow-up - Plan: - Schedule a follow-up appointment in three months. - Reevaluate the need for counseling and discuss the patient's readiness for therapy at the next visit. 12/31/2023 Major depressive disorder, recurrent severe without psychotic features (ICD-10 - F33.2) Major Depressive Disorder - Assessment: The patient reports a significant improvement in mood over the past month, with a 50% reduction in depression score from 18 to 10. The patient is currently on Paxil 30 mg at bedtime, quetiapine 50 mg, and bupropion 300 mg. Patient attributes improvement to medication and increased prayer. - Plan: Continue the current medication regimen, with no adjustments at this time. Reevaluate the need for medication adjustments in 2 months or sooner if the patient's depression worsens. Anxiety - Assessment: The patient is currently taking lorazepam 0.5 mg three times a day as needed for anxiety. - Plan: Continue the current lorazepam prescription and provide a new prescription for the patient. Family Stressors - Assessment: The patient expresses a desire to be closer to her son but is unable to due to his busy schedule and recent divorce. Son works two jobs, plays in a band, and shares custody of his children. - Plan: Encourage the patient to maintain open communication with her son and explore opportunities for spending time together when possible. Counseling - Assessment: The patient is currently in counseling, which is a requirement for TMS treatment. - Plan: Continue counseling and reevaluate the need for TMS treatment in the future if the patient's depression does not continue to improve. Follow-up - Plan: Schedule a follow-up appointment for 2 months after the current visit, or sooner if the patient's depression worsens or new concerns arise. Patient prefers to be seen after [place]. 03/17/2024 Major depressive disorder, recurrent severe without psychotic features (ICD-10 - F33.2) 03/17/2024 Type 2 diabetes mellitus (ICD-10 - E11.9) 12/31/2023 Type 2 diabetes mellitus (ICD-10 - E11.9) Major Depressive Disorder - Assessment: The patient reports a significant improvement in mood over the past month, with a 50% reduction in depression score from 18 to 10. The patient is currently on Paxil 30 mg at bedtime, quetiapine 50 mg, and bupropion 300 mg. Patient attributes improvement to medication and increased prayer. - Plan: Continue the current medication regimen, with no adjustments at this time. Reevaluate the need for medication adjustments in 2 months or sooner if the patient's depression worsens. Anxiety - Assessment: The patient is currently taking lorazepam 0.5 mg three times a day as needed for anxiety. - Plan: Continue the current lorazepam prescription and provide a new prescription for the patient. Family Stressors - Assessment: The patient expresses a desire to be closer to her son but is unable to due to his busy schedule and recent divorce. Son works two jobs, plays in a band, and shares custody of his children. - Plan: Encourage the patient to maintain open communication with her son and explore opportunities for spending time together when possible. Counseling - Assessment: The patient is currently in counseling, which is a requirement for TMS treatment. - Plan: Continue counseling and reevaluate the need for TMS treatment in the future if the patient's depression does not continue to improve. Follow-up - Plan: Schedule a follow-up appointment for 2 months after the current visit, or sooner if the patient's depression worsens or new concerns arise. Patient prefers to be seen after [place]. 08/20/2023 Hypertension (ICD-10 - I10) Depression - Assessment: Patient reports no significant change in mood over the past month. - Plan: - Continue current medications: Paxil 30 mg daily, Trazodone 50 mg nightly. - Encourage the patient to consider counseling when ready; discuss further at the next visit. Anxiety - Assessment: Patient experiencing increased anxiety due to family issues. - Plan: - Continue Lorazepam 0.5 mg three times a day. - Consider referral to a therapist for trauma work or day-to-day coping strategies; patient to consider and discuss at the next visit. Hypertension - Assessment: Patient reports blood pressure was controlled until recently. - Plan: - Continue current medications: Metoprolol 50 mg, Amlodipine, Chlorthalidone. - Encourage patient to monitor blood pressure and follow up with primary care provider if needed. Dizziness/Off balance - Plan: - Continue Topiramate as prescribed. - Monitor symptoms and discuss at the next visit. Hypothyroidism - Plan: - Continue Levothyroxine as prescribed. - Follow up with primary care provider for regular thyroid function monitoring. Follow-up - Plan: - Schedule a follow-up appointment in three months. - Reevaluate the need for counseling and discuss the patient's readiness for therapy at the next visit. 11/26/2023 Type 2 diabetes mellitus (ICD-10 - E11.9) Major Depressive Disorder, Recurrent, Severe - Assessment: Patient reports worsening depression with persistent sadness, crying, lack of motivation, and thoughts of . Patient mentions feeling sad all the time, having no laughter, and feeling like a failure. - Plan: - Continue paroxetine 30 mg daily and quetiapine 50 mg at bedtime. - Add bupropion, starting at 150 mg daily for one week, then increasing to 300 mg daily. - Reevaluate in 2-3 weeks. Treatment-Resista nt Depression - Assessment: Patient has tried multiple antidepressants with limited success, including sertraline, Ruxulti, Viibryd, and Effexor. - Plan: - Consider transcranial magnetic stimulation therapy (TMS) as an adjunct treatment. - Submit necessary forms to insurance for approval and discuss with the patient at the next visit. - Explained TMS process and potential benefits to the patient. Anxiety - Assessment: Patient reports anxiety, but no significant changes since the last visit. Patient expressed concern about nasal spray treatment potentially increasing anxiety. - Plan: - Continue current medications (paroxetine and quetiapine) and monitor for changes in anxiety levels. Social Isolation and Lack of Support - Assessment: Patient lives alone and has limited contact with her son due to his busy schedule with work and children. Patient reports having no friends and feeling lonely. - Plan: - Encourage the patient to engage in activities outside the home and explore opportunities for social support. - Revisit the possibility of counseling or therapy, potentially with a different therapist. Patient had only 1-2 sessions with previous therapists. Diabetes - Assessment: Patient reports difficulty with appetite and eating regularly, but acknowledges the need to eat due to diabetes. - Plan: - Encourage the patient to maintain a consistent eating schedule and monitor blood sugar levels. - Continue current diabetes management plan and reevaluate at the next visit. Fatigue - Assessment: Patient reports persistent fatigue and lack of energy, wanting to lay down all the time. - Plan: - Monitor for improvements in energy levels with the addition of bupropion and potential TMS therapy. - Reevaluate at the next visit. Follow-up - Plan: Schedule a follow-up appointment in 2-3 weeks to assess the patient's response to the addition of bupropion and discuss the potential for TMS therapy if approved by insurance. 11/26/2023 Hypertension (ICD-10 - I10) Major Depressive Disorder, Recurrent, Severe - Assessment: Patient reports worsening depression with persistent sadness, crying, lack of motivation, and thoughts of . Patient mentions feeling sad all the time, having no laughter, and feeling like a failure. - Plan: - Continue paroxetine 30 mg daily and quetiapine 50 mg at bedtime. - Add bupropion, starting at 150 mg daily for one week, then increasing to 300 mg daily. - Reevaluate in 2-3 weeks. Treatment-Resista nt Depression - Assessment: Patient has tried multiple antidepressants with limited success, including sertraline, Ruxulti, Viibryd, and Effexor. - Plan: - Consider transcranial magnetic stimulation therapy (TMS) as an adjunct treatment. - Submit necessary forms to insurance for approval and discuss with the patient at the next visit. - Explained TMS process and potential benefits to the patient. Anxiety - Assessment: Patient reports anxiety, but no significant changes since the last visit. Patient expressed concern about nasal spray treatment potentially increasing anxiety. - Plan: - Continue current medications (paroxetine and quetiapine) and monitor for changes in anxiety levels. Social Isolation and Lack of Support - Assessment: Patient lives alone and has limited contact with her son due to his busy schedule with work and children. Patient reports having no friends and feeling lonely. - Plan: - Encourage the patient to engage in activities outside the home and explore opportunities for social support. - Revisit the possibility of counseling or therapy, potentially with a different therapist. Patient had only 1-2 sessions with previous therapists. Diabetes - Assessment: Patient reports difficulty with appetite and eating regularly, but acknowledges the need to eat due to diabetes. - Plan: - Encourage the patient to maintain a consistent eating schedule and monitor blood sugar levels. - Continue current diabetes management plan and reevaluate at the next visit. Fatigue - Assessment: Patient reports persistent fatigue and lack of energy, wanting to lay down all the time. - Plan: - Monitor for improvements in energy levels with the addition of bupropion and potential TMS therapy. - Reevaluate at the next visit. Follow-up - Plan: Schedule a follow-up appointment in 2-3 weeks to assess the patient's response to the addition of bupropion and discuss the potential for TMS therapy if approved by insurance. 11/26/2023 History of nephrectomy (ICD-10 - Z90.5) Major Depressive Disorder, Recurrent, Severe - Assessment: Patient reports worsening depression with persistent sadness, crying, lack of motivation, and thoughts of . Patient mentions feeling sad all the time, having no laughter, and feeling like a failure. - Plan: - Continue paroxetine 30 mg daily and quetiapine 50 mg at bedtime. - Add bupropion, starting at 150 mg daily for one week, then increasing to 300 mg daily. - Reevaluate in 2-3 weeks. Treatment-Resista nt Depression - Assessment: Patient has tried multiple antidepressants with limited success, including sertraline, Ruxulti, Viibryd, and Effexor. - Plan: - Consider transcranial magnetic stimulation therapy (TMS) as an adjunct treatment. - Submit necessary forms to insurance for approval and discuss with the patient at the next visit. - Explained TMS process and potential benefits to the patient. Anxiety - Assessment: Patient reports anxiety, but no significant changes since the last visit. Patient expressed concern about nasal spray treatment potentially increasing anxiety. - Plan: - Continue current medications (paroxetine and quetiapine) and monitor for changes in anxiety levels. Social Isolation and Lack of Support - Assessment: Patient lives alone and has limited contact with her son due to his busy schedule with work and children. Patient reports having no friends and feeling lonely. - Plan: - Encourage the patient to engage in activities outside the home and explore opportunities for social support. - Revisit the possibility of counseling or therapy, potentially with a different therapist. Patient had only 1-2 sessions with previous therapists. Diabetes - Assessment: Patient reports difficulty with appetite and eating regularly, but acknowledges the need to eat due to diabetes. - Plan: - Encourage the patient to maintain a consistent eating schedule and monitor blood sugar levels. - Continue current diabetes management plan and reevaluate at the next visit. Fatigue - Assessment: Patient reports persistent fatigue and lack of energy, wanting to lay down all the time. - Plan: - Monitor for improvements in energy levels with the addition of bupropion and potential TMS therapy. - Reevaluate at the next visit. Follow-up - Plan: Schedule a follow-up appointment in 2-3 weeks to assess the patient's response to the addition of bupropion and discuss the potential for TMS therapy if approved by insurance. 08/20/2023 History of nephrectomy (ICD-10 - Z90.5) Depression - Assessment: Patient reports no significant change in mood over the past month. - Plan: - Continue current medications: Paxil 30 mg daily, Trazodone 50 mg nightly. - Encourage the patient to consider counseling when ready; discuss further at the next visit. Anxiety - Assessment: Patient experiencing increased anxiety due to family issues. - Plan: - Continue Lorazepam 0.5 mg three times a day. - Consider referral to a therapist for trauma work or day-to-day coping strategies; patient to consider and discuss at the next visit. Hypertension - Assessment: Patient reports blood pressure was controlled until recently. - Plan: - Continue current medications: Metoprolol 50 mg, Amlodipine, Chlorthalidone. - Encourage patient to monitor blood pressure and follow up with primary care provider if needed. Dizziness/Off balance - Plan: - Continue Topiramate as prescribed. - Monitor symptoms and discuss at the next visit. Hypothyroidism - Plan: - Continue Levothyroxine as prescribed. - Follow up with primary care provider for regular thyroid function monitoring. Follow-up - Plan: - Schedule a follow-up appointment in three months. - Reevaluate the need for counseling and discuss the patient's readiness for therapy at the next visit. 03/17/2024 Hypertension (ICD-10 - I10) 12/31/2023 Hypertension (ICD-10 - I10) Major Depressive Disorder - Assessment: The patient reports a significant improvement in mood over the past month, with a 50% reduction in depression score from 18 to 10. The patient is currently on Paxil 30 mg at bedtime, quetiapine 50 mg, and bupropion 300 mg. Patient attributes improvement to medication and increased prayer. - Plan: Continue the current medication regimen, with no adjustments at this time. Reevaluate the need for medication adjustments in 2 months or sooner if the patient's depression worsens. Anxiety - Assessment: The patient is currently taking lorazepam 0.5 mg three times a day as needed for anxiety. - Plan: Continue the current lorazepam prescription and provide a new prescription for the patient. Family Stressors - Assessment: The patient expresses a desire to be closer to her son but is unable to due to his busy schedule and recent divorce. Son works two jobs, plays in a band, and shares custody of his children. - Plan: Encourage the patient to maintain open communication with her son and explore opportunities for spending time together when possible. Counseling - Assessment: The patient is currently in counseling, which is a requirement for TMS treatment. - Plan: Continue counseling and reevaluate the need for TMS treatment in the future if the patient's depression does not continue to improve. Follow-up - Plan: Schedule a follow-up appointment for 2 months after the current visit, or sooner if the patient's depression worsens or new concerns arise. Patient prefers to be seen after [place]. 12/31/2023 History of nephrectomy (ICD-10 - Z90.5) Major Depressive Disorder - Assessment: The patient reports a significant improvement in mood over the past month, with a 50% reduction in depression score from 18 to 10. The patient is currently on Paxil 30 mg at bedtime, quetiapine 50 mg, and bupropion 300 mg. Patient attributes improvement to medication and increased prayer. - Plan: Continue the current medication regimen, with no adjustments at this time. Reevaluate the need for medication adjustments in 2 months or sooner if the patient's depression worsens. Anxiety - Assessment: The patient is currently taking lorazepam 0.5 mg three times a day as needed for anxiety. - Plan: Continue the current lorazepam prescription and provide a new prescription for the patient. Family Stressors - Assessment: The patient expresses a desire to be closer to her son but is unable to due to his busy schedule and recent divorce. Son works two jobs, plays in a band, and shares custody of his children. - Plan: Encourage the patient to maintain open communication with her son and explore opportunities for spending time together when possible. Counseling - Assessment: The patient is currently in counseling, which is a requirement for TMS treatment. - Plan: Continue counseling and reevaluate the need for TMS treatment in the future if the patient's depression does not continue to improve. Follow-up - Plan: Schedule a follow-up appointment for 2 months after the current visit, or sooner if the patient's depression worsens or new concerns arise. Patient prefers to be seen after [place]. 03/17/2024 History of nephrectomy (ICD-10 - Z90.5) 08/20/2023 Chronic kidney disease (ICD-10 - N18.9) Depression - Assessment: Patient reports no significant change in mood over the past month. - Plan: - Continue current medications: Paxil 30 mg daily, Trazodone 50 mg nightly. - Encourage the patient to consider counseling when ready; discuss further at the next visit. Anxiety - Assessment: Patient experiencing increased anxiety due to family issues. - Plan: - Continue Lorazepam 0.5 mg three times a day. - Consider referral to a therapist for trauma work or day-to-day coping strategies; patient to consider and discuss at the next visit. Hypertension - Assessment: Patient reports blood pressure was controlled until recently. - Plan: - Continue current medications: Metoprolol 50 mg, Amlodipine, Chlorthalidone. - Encourage patient to monitor blood pressure and follow up with primary care provider if needed. Dizziness/Off balance - Plan: - Continue Topiramate as prescribed. - Monitor symptoms and discuss at the next visit. Hypothyroidism - Plan: - Continue Levothyroxine as prescribed. - Follow up with primary care provider for regular thyroid function monitoring. Follow-up - Plan: - Schedule a follow-up appointment in three months. - Reevaluate the need for counseling and discuss the patient's readiness for therapy at the next visit. 11/26/2023 Chronic kidney disease (ICD-10 - N18.9) Major Depressive Disorder, Recurrent, Severe - Assessment: Patient reports worsening depression with persistent sadness, crying, lack of motivation, and thoughts of . Patient mentions feeling sad all the time, having no laughter, and feeling like a failure. - Plan: - Continue paroxetine 30 mg daily and quetiapine 50 mg at bedtime. - Add bupropion, starting at 150 mg daily for one week, then increasing to 300 mg daily. - Reevaluate in 2-3 weeks. Treatment-Resista nt Depression - Assessment: Patient has tried multiple antidepressants with limited success, including sertraline, Ruxulti, Viibryd, and Effexor. - Plan: - Consider transcranial magnetic stimulation therapy (TMS) as an adjunct treatment. - Submit necessary forms to insurance for approval and discuss with the patient at the next visit. - Explained TMS process and potential benefits to the patient. Anxiety - Assessment: Patient reports anxiety, but no significant changes since the last visit. Patient expressed concern about nasal spray treatment potentially increasing anxiety. - Plan: - Continue current medications (paroxetine and quetiapine) and monitor for changes in anxiety levels. Social Isolation and Lack of Support - Assessment: Patient lives alone and has limited contact with her son due to his busy schedule with work and children. Patient reports having no friends and feeling lonely. - Plan: - Encourage the patient to engage in activities outside the home and explore opportunities for social support. - Revisit the possibility of counseling or therapy, potentially with a different therapist. Patient had only 1-2 sessions with previous therapists. Diabetes - Assessment: Patient reports difficulty with appetite and eating regularly, but acknowledges the need to eat due to diabetes. - Plan: - Encourage the patient to maintain a consistent eating schedule and monitor blood sugar levels. - Continue current diabetes management plan and reevaluate at the next visit. Fatigue - Assessment: Patient reports persistent fatigue and lack of energy, wanting to lay down all the time. - Plan: - Monitor for improvements in energy levels with the addition of bupropion and potential TMS therapy. - Reevaluate at the next visit. Follow-up - Plan: Schedule a follow-up appointment in 2-3 weeks to assess the patient's response to the addition of bupropion and discuss the potential for TMS therapy if approved by insurance. 12/31/2023 Chronic kidney disease (ICD-10 - N18.9) Major Depressive Disorder - Assessment: The patient reports a significant improvement in mood over the past month, with a 50% reduction in depression score from 18 to 10. The patient is currently on Paxil 30 mg at bedtime, quetiapine 50 mg, and bupropion 300 mg. Patient attributes improvement to medication and increased prayer. - Plan: Continue the current medication regimen, with no adjustments at this time. Reevaluate the need for medication adjustments in 2 months or sooner if the patient's depression worsens. Anxiety - Assessment: The patient is currently taking lorazepam 0.5 mg three times a day as needed for anxiety. - Plan: Continue the current lorazepam prescription and provide a new prescription for the patient. Family Stressors - Assessment: The patient expresses a desire to be closer to her son but is unable to due to his busy schedule and recent divorce. Son works two jobs, plays in a band, and shares custody of his children. - Plan: Encourage the patient to maintain open communication with her son and explore opportunities for spending time together when possible. Counseling - Assessment: The patient is currently in counseling, which is a requirement for TMS treatment. - Plan: Continue counseling and reevaluate the need for TMS treatment in the future if the patient's depression does not continue to improve. Follow-up - Plan: Schedule a follow-up appointment for 2 months after the current visit, or sooner if the patient's depression worsens or new concerns arise. Patient prefers to be seen after [place]. 03/17/2024 Chronic kidney disease (ICD-10 - N18.9) 11/26/2023 Generalized anxiety disorder (ICD-10 - F41.1) Major Depressive Disorder, Recurrent, Severe - Assessment: Patient reports worsening depression with persistent sadness, crying, lack of motivation, and thoughts of . Patient mentions feeling sad all the time, having no laughter, and feeling like a failure. - Plan: - Continue paroxetine 30 mg daily and quetiapine 50 mg at bedtime. - Add bupropion, starting at 150 mg daily for one week, then increasing to 300 mg daily. - Reevaluate in 2-3 weeks. Treatment-Resista nt Depression - Assessment: Patient has tried multiple antidepressants with limited success, including sertraline, Ruxulti, Viibryd, and Effexor. - Plan: - Consider transcranial magnetic stimulation therapy (TMS) as an adjunct treatment. - Submit necessary forms to insurance for approval and discuss with the patient at the next visit. - Explained TMS process and potential benefits to the patient. Anxiety - Assessment: Patient reports anxiety, but no significant changes since the last visit. Patient expressed concern about nasal spray treatment potentially increasing anxiety. - Plan: - Continue current medications (paroxetine and quetiapine) and monitor for changes in anxiety levels. Social Isolation and Lack of Support - Assessment: Patient lives alone and has limited contact with her son due to his busy schedule with work and children. Patient reports having no friends and feeling lonely. - Plan: - Encourage the patient to engage in activities outside the home and explore opportunities for social support. - Revisit the possibility of counseling or therapy, potentially with a different therapist. Patient had only 1-2 sessions with previous therapists. Diabetes - Assessment: Patient reports difficulty with appetite and eating regularly, but acknowledges the need to eat due to diabetes. - Plan: - Encourage the patient to maintain a consistent eating schedule and monitor blood sugar levels. - Continue current diabetes management plan and reevaluate at the next visit. Fatigue - Assessment: Patient reports persistent fatigue and lack of energy, wanting to lay down all the time. - Plan: - Monitor for improvements in energy levels with the addition of bupropion and potential TMS therapy. - Reevaluate at the next visit. Follow-up - Plan: Schedule a follow-up appointment in 2-3 weeks to assess the patient's response to the addition of bupropion and discuss the potential for TMS therapy if approved by insurance. 08/20/2023 Generalized anxiety disorder (ICD-10 - F41.1) Depression - Assessment: Patient reports no significant change in mood over the past month. - Plan: - Continue current medications: Paxil 30 mg daily, Trazodone 50 mg nightly. - Encourage the patient to consider counseling when ready; discuss further at the next visit. Anxiety - Assessment: Patient experiencing increased anxiety due to family issues. - Plan: - Continue Lorazepam 0.5 mg three times a day. - Consider referral to a therapist for trauma work or day-to-day coping strategies; patient to consider and discuss at the next visit. Hypertension - Assessment: Patient reports blood pressure was controlled until recently. - Plan: - Continue current medications: Metoprolol 50 mg, Amlodipine, Chlorthalidone. - Encourage patient to monitor blood pressure and follow up with primary care provider if needed. Dizziness/Off balance - Plan: - Continue Topiramate as prescribed. - Monitor symptoms and discuss at the next visit. Hypothyroidism - Plan: - Continue Levothyroxine as prescribed. - Follow up with primary care provider for regular thyroid function monitoring. Follow-up - Plan: - Schedule a follow-up appointment in three months. - Reevaluate the need for counseling and discuss the patient's readiness for therapy at the next visit. 08/20/2023 Panic disorder [episodic paroxysmal anxiety] without agoraphobia (ICD-10 - F41.0) Depression - Assessment: Patient reports no significant change in mood over the past month. - Plan: - Continue current medications: Paxil 30 mg daily, Trazodone 50 mg nightly. - Encourage the patient to consider counseling when ready; discuss further at the next visit. Anxiety - Assessment: Patient experiencing increased anxiety due to family issues. - Plan: - Continue Lorazepam 0.5 mg three times a day. - Consider referral to a therapist for trauma work or day-to-day coping strategies; patient to consider and discuss at the next visit. Hypertension - Assessment: Patient reports blood pressure was controlled until recently. - Plan: - Continue current medications: Metoprolol 50 mg, Amlodipine, Chlorthalidone. - Encourage patient to monitor blood pressure and follow up with primary care provider if needed. Dizziness/Off balance - Plan: - Continue Topiramate as prescribed. - Monitor symptoms and discuss at the next visit. Hypothyroidism - Plan: - Continue Levothyroxine as prescribed. - Follow up with primary care provider for regular thyroid function monitoring. Follow-up - Plan: - Schedule a follow-up appointment in three months. - Reevaluate the need for counseling and discuss the patient's readiness for therapy at the next visit. 11/26/2023 Panic disorder [episodic paroxysmal anxiety] without agoraphobia (ICD-10 - F41.0) Major Depressive Disorder, Recurrent, Severe - Assessment: Patient reports worsening depression with persistent sadness, crying, lack of motivation, and thoughts of . Patient mentions feeling sad all the time, having no laughter, and feeling like a failure. - Plan: - Continue paroxetine 30 mg daily and quetiapine 50 mg at bedtime. - Add bupropion, starting at 150 mg daily for one week, then increasing to 300 mg daily. - Reevaluate in 2-3 weeks. Treatment-Resista nt Depression - Assessment: Patient has tried multiple antidepressants with limited success, including sertraline, Ruxulti, Viibryd, and Effexor. - Plan: - Consider transcranial magnetic stimulation therapy (TMS) as an adjunct treatment. - Submit necessary forms to insurance for approval and discuss with the patient at the next visit. - Explained TMS process and potential benefits to the patient. Anxiety - Assessment: Patient reports anxiety, but no significant changes since the last visit. Patient expressed concern about nasal spray treatment potentially increasing anxiety. - Plan: - Continue current medications (paroxetine and quetiapine) and monitor for changes in anxiety levels. Social Isolation and Lack of Support - Assessment: Patient lives alone and has limited contact with her son due to his busy schedule with work and children. Patient reports having no friends and feeling lonely. - Plan: - Encourage the patient to engage in activities outside the home and explore opportunities for social support. - Revisit the possibility of counseling or therapy, potentially with a different therapist. Patient had only 1-2 sessions with previous therapists. Diabetes - Assessment: Patient reports difficulty with appetite and eating regularly, but acknowledges the need to eat due to diabetes. - Plan: - Encourage the patient to maintain a consistent eating schedule and monitor blood sugar levels. - Continue current diabetes management plan and reevaluate at the next visit. Fatigue - Assessment: Patient reports persistent fatigue and lack of energy, wanting to lay down all the time. - Plan: - Monitor for improvements in energy levels with the addition of bupropion and potential TMS therapy. - Reevaluate at the next visit. Follow-up - Plan: Schedule a follow-up appointment in 2-3 weeks to assess the patient's response to the addition of bupropion and discuss the potential for TMS therapy if approved by insurance. 03/17/2024 Generalized anxiety disorder (ICD-10 - F41.1) 12/31/2023 Generalized anxiety disorder (ICD-10 - F41.1) Major Depressive Disorder - Assessment: The patient reports a significant improvement in mood over the past month, with a 50% reduction in depression score from 18 to 10. The patient is currently on Paxil 30 mg at bedtime, quetiapine 50 mg, and bupropion 300 mg. Patient attributes improvement to medication and increased prayer. - Plan: Continue the current medication regimen, with no adjustments at this time. Reevaluate the need for medication adjustments in 2 months or sooner if the patient's depression worsens. Anxiety - Assessment: The patient is currently taking lorazepam 0.5 mg three times a day as needed for anxiety. - Plan: Continue the current lorazepam prescription and provide a new prescription for the patient. Family Stressors - Assessment: The patient expresses a desire to be closer to her son but is unable to due to his busy schedule and recent divorce. Son works two jobs, plays in a band, and shares custody of his children. - Plan: Encourage the patient to maintain open communication with her son and explore opportunities for spending time together when possible. Counseling - Assessment: The patient is currently in counseling, which is a requirement for TMS treatment. - Plan: Continue counseling and reevaluate the need for TMS treatment in the future if the patient's depression does not continue to improve. Follow-up - Plan: Schedule a follow-up appointment for 2 months after the current visit, or sooner if the patient's depression worsens or new concerns arise. Patient prefers to be seen after [place]. 12/31/2023 Panic disorder [episodic paroxysmal anxiety] without agoraphobia (ICD-10 - F41.0) Major Depressive Disorder - Assessment: The patient reports a significant improvement in mood over the past month, with a 50% reduction in depression score from 18 to 10. The patient is currently on Paxil 30 mg at bedtime, quetiapine 50 mg, and bupropion 300 mg. Patient attributes improvement to medication and increased prayer. - Plan: Continue the current medication regimen, with no adjustments at this time. Reevaluate the need for medication adjustments in 2 months or sooner if the patient's depression worsens. Anxiety - Assessment: The patient is currently taking lorazepam 0.5 mg three times a day as needed for anxiety. - Plan: Continue the current lorazepam prescription and provide a new prescription for the patient. Family Stressors - Assessment: The patient expresses a desire to be closer to her son but is unable to due to his busy schedule and recent divorce. Son works two jobs, plays in a band, and shares custody of his children. - Plan: Encourage the patient to maintain open communication with her son and explore opportunities for spending time together when possible. Counseling - Assessment: The patient is currently in counseling, which is a requirement for TMS treatment. - Plan: Continue counseling and reevaluate the need for TMS treatment in the future if the patient's depression does not continue to improve. Follow-up - Plan: Schedule a follow-up appointment for 2 months after the current visit, or sooner if the patient's depression worsens or new concerns arise. Patient prefers to be seen after [place]. 03/17/2024 Panic disorder [episodic paroxysmal anxiety] without agoraphobia (ICD-10 - F41.0) 11/26/2023 Other referral to the local chapter or national office of the Alzheimer's [employer] (; http://www.al z.org), the [facility] ([facility]) (7-965-354-43 80; http://www.ni a.nih.gov/Alz heimers/), Major Depressive Disorder, Recurrent, Severe - Assessment: Patient reports worsening depression with persistent sadness, crying, lack of motivation, and thoughts of . Patient mentions feeling sad all the time, having no laughter, and feeling like a failure. - Plan: - Continue paroxetine 30 mg daily and quetiapine 50 mg at bedtime. - Add bupropion, starting at 150 mg daily for one week, then increasing to 300 mg daily. - Reevaluate in 2-3 weeks. Treatment-Resista nt Depression - Assessment: Patient has tried multiple antidepressants with limited success, including sertraline, Ruxulti, Viibryd, and Effexor. - Plan: - Consider transcranial magnetic stimulation therapy (TMS) as an adjunct treatment. - Submit necessary forms to insurance for approval and discuss with the patient at the next visit. - Explained TMS process and potential benefits to the patient. Anxiety - Assessment: Patient reports anxiety, but no significant changes since the last visit. Patient expressed concern about nasal spray treatment potentially increasing anxiety. - Plan: - Continue current medications (paroxetine and quetiapine) and monitor for changes in anxiety levels. Social Isolation and Lack of Support - Assessment: Patient lives alone and has limited contact with her son due to his busy schedule with work and children. Patient reports having no friends and feeling lonely. - Plan: - Encourage the patient to engage in activities outside the home and explore opportunities for social support. - Revisit the possibility of counseling or therapy, potentially with a different therapist. Patient had only 1-2 sessions with previous therapists. Diabetes - Assessment: Patient reports difficulty with appetite and eating regularly, but acknowledges the need to eat due to diabetes. - Plan: - Encourage the patient to maintain a consistent eating schedule and monitor blood sugar levels. - Continue current diabetes management plan and reevaluate at the next visit. Fatigue - Assessment: Patient reports persistent fatigue and lack of energy, wanting to lay down all the time. - Plan: - Monitor for improvements in energy levels with the addition of bupropion and potential TMS therapy. - Reevaluate at the next visit. Follow-up - Plan: Schedule a follow-up appointment in 2-3 weeks to assess the patient's response to the addition of bupropion and discuss the potential for TMS therapy if approved by insurance. 03/17/2024 Other Major Depressive Disorder - Assessment: Patient reports improvement in mood and depression, feeling more 'normal' and calm with the current medication regimen. No periods of feeling down or depressed. - Plan: - Continue Paxil 30 mg daily for depression. - Continue Bupropion XL 300 mg in the morning for mood and motivation. Anxiety - Assessment: Patient is currently taking Lorazepam 0.5 mg three times a day for anxiety. - Plan: - Continue Lorazepam 0.5 mg three times a day as needed for anxiety. Insomnia - Assessment: Patient reports difficulty falling asleep and staying asleep, engaging in activities like praying, watching TV, and using the phone at night, which may contribute to sleep issues. - Plan: - Increase Quetiapine from 50 mg to 100 mg at bedtime to help with sleep issues and mood stabilization. Mild Cognitive Impairment - Assessment: Patient's previous memory test score was 19, indicating mild cognitive impairment. The patient does not currently feel they have memory issues. - Plan: - No changes in the treatment plan for cognitive impairment at this time. - Monitor the patient's memory and cognitive function during follow-up visits. Weight Loss and Decreased Appetite - Assessment: Patient reports a lack of appetite but no significant weight loss. - Plan: - Monitor weight and appetite during follow-up visits. - No changes in the treatment plan at this time. Follow-up - Plan: - Schedule a follow-up appointment in 2 months to assess the patient's progress and response to the medication adjustments. - Perform a urine test for Lorazepam during the next visit. - Check vitals during the next visit. - Refill prescriptions for Paxil, Quetiapine, Bupropion XL, and Lorazepam, and send them to [facility] in [place] on [address]. Plan Of Treatment Next Appt Details Provider Name:Paulo Akers , 04/28/2024 11:00:00 AM, [address], [facility] [address], [place], [address], Insurance Providers Payer Name Payer Address Payer Phone Subscriber Number Group Number Insured Name Patient Relationship to Insured Coverage Start Date Coverage End Date [facility] [address] [address] [place] [phone] [id number] RAUL ANN Self - patient is the insured Medical (General) History Medical History History ICD Code Problems: Diabetes mellitus Generalized anxiety disorder Hypertensive disorder Hyperthyroidism Mild recurrent major depression Panic disorder Surgical History Surgery Date(Month/Year) Hysterectomy (093540376) Knee arthroscopy/surgery (89249) Appendectomy (50684) Kidney excision (252785215) Cholecystectomy (15800939) Xcapsl ctrc rmvl cplx wo ecp (63564) Carpal tunnel surgery (46908) Any surgical history 02/23/1969 Appendectomy (91869) 02/23/1979 Cataract surgery (42220) 02/23/1979 Removal of gallbladder (77287) 0 Hysterectomy (20265) 02/23/1979 Removal of gallbladder (31859) 4
--- OUTSIDE RECORDS SUMMARY | 2024-03-24 12:16 | XMS_ITS | Clinical Summary ---
Author Organization [facility] d[facility] Address [address] [place] [id number] Phone Care Team Providers Care Bilingual Teacher Assistant Name Role Phone Marilyn Ponce Primary Care Provider [phone] Allergies No known active allergies Medications Medication Sig Dispensed Refills Start Date End Date Status amLODIPine (NORVASC) 5 MG tablet Take 5 mg by mouth 1 (one) time each day Active aspirin (ST JAZIEL) 81 MG EC tablet Take 81 mg by mouth 1 (one) time each day Active atorvastatin (LIPITOR) 20 MG tablet Take 20 mg by mouth 1 (one) time each day Active chlorthalidone (HYGROTON) 25 MG tablet Take 25 mg by mouth 1 (one) time each day Active pantoprazole (PROTONIX) 40 MG EC tablet Take 40 mg by mouth 1 (one) time each day before breakfast Active PARoxetine (PAXIL) 30 MG tablet Take 30 mg by mouth in the morning and 30 mg in the evening. Active Semaglutide,0.25 or 0.5MG/DOS, 2 MG/1.5ML solution pen-injector Inject 0.5 mg under the skin 1 (one) time per week Active insulin lispro protamine-insulin lispro (HumaLOG 75-25) (75-25) 100 UNIT/ML suspension Inject 30 Units under the skin 2 (two) times a day before meals Active topiramate (TOPAMAX) 50 MG tablet Take 50 mg by mouth every night Active carbidopa-levodopa (PARCOPA) 25-100 MG per disintegrating tablet Take 1 tablet by mouth in the morning and 1 tablet in the evening and 1 tablet before bedtime. Active QUEtiapine (SEROquel) 25 MG tablet Take 25 mg by mouth in the morning and 25 mg in the evening. Active sertraline (ZOLOFT) 100 MG tablet Take 100 mg by mouth 1 (one) time each day Active LORazepam (ATIVAN) 0.5 MG tablet Take 0.5 mg by mouth every 6 (six) hours if needed for anxiety Active Active Problems Problem Noted Date Diagnosed Date History of nephrectomy 06/04/2020 Type 2 diabetes mellitus 05/29/2020 Chronic kidney disease 05/29/2020 Hypertension 05/29/2020 Family History Medical History Relation Comments Diabetes Brother Diabetes Father Diabetes Mother Stomach cancer Mother Diabetes Sister Heart attack Sister Relation Status Comments Brother Father Mother Sister Social History Tobacco Use Types Packs/Day Years Used Date Smoking Tobacco: Never Smokeless Tobacco: Never Alcohol Use Standard Drinks/Week Comments Never 0 (1 standard drink = 0.6 oz pur e alcohol) AUDIT-C Answer Date Recorded Q1: How often do you have a drink containing alc ohol? Never 05/29/2020 Average Number of Drinks Not on file 021 Frequency of Binge Drinking Not on file 07/2020 Sex and Gender Information Value Date Recorded Sex Assigned at Not on file Gender Identity Not on file Sexual Orientation Not on file Last Filed Vital Signs Vital Sign Reading Time Taken Comments Blood Pressure 171/84 07/07/2023 2:09 PM CDT Pulse 92 07/07/2023 2:09 PM CDT Temperature 36.1 ??C (96.9 ??F) 07/11/2020 12:36 PM C DT Respiratory Rate - - Oxygen Saturation - - Inhaled Oxygen Concentration - - Weight 103 kg (226 lb) 07/07/2023 2:09 PM CDT Height 162.6 cm (5' 4 ) 07/07/2023 2:09 PM CDT Body Mass Index 38.79 07/07/2023 2:09 PM CDT Plan of Treatment Upcoming Encounters Date Type Department Care Team (Late st Contact Info) Description 04/05/2024 11:20 AM 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, [address] [place] [address] Vignesh Paniagua MD [address] [address] Health Maintenance Due Date Last Done Comments Diabetic Foot Exam 1955 Ophthalmology Exam 1955 Pneumococcal PPSV23/PCV13 65 + Years / High and Highest Risk (2 of 4 - PPSV23 or PCV20) 11/26/2016 10/01/2016 Influenza Vaccine (#1) 2023 11/08/2013 Care Teams Bilingual Teacher Assistant Relationship Specialty Start Date End Date Marilyn Ponce [address] [place] [address] PCP - General 01/06/23
[2024-03-24 12:23] LABS: Alanine Aminotransferase 6 U/L (6-35); Albumin Level 3.9 g/dL (3.5-5.1); Alkaline Phosphatase 106 U/L (38-126); Anion Gap 11 mmol/L (4-12); Aspartate Amino Transferase 15 U/L (14-36); Bilirubin,Total 0.4 mg/dL (0.2-1.3); Blood Urea Nitrogen 35 mg/dL (7-17); Calcium 8.9 mg/dL (8.4-10.2); Carbon Dioxide 25 mmol/L (22-30); Chloride 105 mmol/L (98-107); Cholesterol 128 mg/dL (0-200); Estimated Glomerular Filt Rate 25; Glucose 233 mg/dL (65-110); HDL Direct 58 mg/dL; Sodium 141 mmol/L (137-145); Triglycerides 135 mg/dL (<150)
[2024-03-24 12:48] LABS: Free T4 Free Thyroxine 1.52 ng/dL (0.78-2.19)
[2024-03-24 13:03] LABS: Creatinine Urine 131.1 mg/dL
[2024-03-24 13:08] LABS: MALB Creatinine Ratio 10.5 mg/g (0-30); Microalbumin Urine Random 13.8 mg/L (0-16.7)
[2024-03-24 13:59] LABS: LDL Cholesterol Direct < 30 mg/dL
[2024-03-26 02:49] LABS: C-Peptide 3.11 ng/mL (0.80-3.85)
[2024-03-28 19:24] LABS: Glutamic acid decarboxylase AA <5 IU/mL (<5)
== END 2024-03-24 11:19 | disposition home or self-care (01) ==
PROVIDERS: Visit Provider Internal Medicine
DX: E78.5 Hyperlipidemia, unspecified (principal); I10 Essential (primary) hypertension; E11.9 Type 2 diabetes mellitus without complications; E66.9 Obesity, unspecified; Z71.3 Dietary counseling and surveillance; E03.9 Hypothyroidism, unspecified
CPT/HCPCS: 36415; 80053; 80061; 82043; 84439; 84443; 84681; 85027; 86341

== ENCOUNTER 2024-03-31 11:11 | Outpatient (CLI) | payer MEDICARE, SELFPAY ==
--- OUTSIDE RECORDS SUMMARY | 2024-03-31 11:44 | XMS_ITS | Clinical Summary ---
Author Organization [facility] Address [address] [place] [address] Care Team Providers Care Phytopathologist Name Role Phone Marilyn Ponce Primary Care Provider [phone] Social History Tobacco Use Types Packs/Day Years Used Date Smoking Tobacco: Never Assessed Comments Unknown Sex and Gender Information Value Date Recorded Sex Assigned at Not on file Legal Sex Female 8:01 AM DIRECTOR INTERNAL COMMUNICATIONS Gender Identity Not on file Sexual Orientation Not on file Plan of Treatment Health Maintenance Due Date Last Done Comments PHQ-2 (Physician Loranger) 1955 DTaP, Tdap and Td Vaccines ( 1 - Tdap) 1962 Zoster Vaccines (1 of 2) 1993 Annual Medicare Wellness Visit 2008 Dexa Scan (General) 2008 Pneumococcal Vaccine: 65+ Ye ars (1 of 1 - PCV) 2008 RSV Immunization or 60+ Years (1 - 1-dose 75+ series) 2018 COVID-19 Vaccine ( - 2023-2 5 season) 2023 Influenza Adult (#1) 2023 PHQ-2 (Physician Loranger) 02/24/2024 Meningococcal B Vaccine Aged Out No l onger eligible based on patient's age to complete this topic Meningococcal Vaccine Aged Out No jorge hortensia eligible based on patient's age to complete this topic RSV Immunizations Under 20 Months Aged Out No longer eligible based on patient's age to complete this topic Insurance A[employer] Care Teams Phytopathologist Relationship Specialty Start Date End Date Marilyn Ponce PA [address] [place] [address] PCP - General PHYSICIAN GROCERY MANAGER 04/25/21
--- OUTSIDE RECORDS SUMMARY | 2024-03-31 11:44 | XMS_ITS | Referral Summary ---
Author Organization [facility] Physician Office Building [address] [place] [address] Care Team Providers Care Paper Cup Handle Machine Operator Name Role Phone Robert Carter MD Primary Care Provider [phone] Vignesh Paniagua MD Unavailable [phone] Isac Kam MD Unavailable [phone] Encounters Date Type Department Care Team Description 02/10/2024 Telephone [facility] Diabetes and Endocrinology [facility] [place] [address] Isac Kam MD Med Management (Ozempic) from Last 3 Months Allergies No known [...] hyperglycemia, with long-term current use of insulin ([facility]) One Touch Test Strips Test blood sugars three times every day Dx E11.65 insulin dependent 300 each 3 3 Active blood-glucose meter kitIndications:Typ e 2 diabetes mellitus with hyperglycemia, with long-term current use of insulin ([facility]) One Touch Meter Use three times daily [...] hyperglycemia, with long-term current use of insulin ([facility]) Inject 0.25 mg under the skin once a week 3 mL 1 4 Active Active Problems Problem Noted Date Diagnosed Date Class 2 severe obesity due t o excess calories with serious comorbidity and body mass index (BMI) of 35.0 to 35.9 in adult 03/18/2022 Assessment & Plan (03/18/2022 11:15 AM ACADEMIC SUPPORT SPECIALIST): Chronic problem. Down 16# since 07/2021. Discussed healthy diet and importance of regular physical activity (20- 30min/day, 150min/wk). CKD stage 3 secondary to diabetes 03/17/2022 Assessment & Plan (03/17/2022 10:10 AM ACADEMIC SUPPORT SPECIALIST): Component Latest Ref Rng & Units 05/02/2021 [...] Had DM eye exam summer 2021 at [facility]. Letter sent to get copy of [...] infection. Assessment & Plan (03/18/2022 11:26 AM ACADEMIC SUPPORT SPECIALIST): Chronic problem, A1c at goal but evening [...] it. 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 uncontrolled DM, diet and exercise , importance on of BS monitoring, medications options - discussed goal BS and A1c targets - advise to start checking BS - before Meals and bedtime - advise to work on healthy diet, avoid processed foods , increase vegetables and protein and cut back on carb portions and also avoid fruit juices and regular soda and desserts - Increase Ozempic to 0.5 mg SQ weekly - Keep taking Glipizide 10 mg oral twice daily with meals - stop basaglar - start Humalog mix 75/25 Insulin - Take 30 units SQ twice daily with Breakfast and dinner - check blood sugars before meals and bedtime - demonstrated how to use [employer] ashish CGM - follow up in 4 weeks with BS log Hypertension associated with diabetes 03/19/2020 Assessment & Plan (06/24/2022 12:27 PM CDT): Chronic problem. Currently taking chlorthalidone 25mg daily & amlodipine 5mg daily. No changes at this time. Will update labs today. Verified phone #/address to contact re: results. Assessment & Plan (03/17/2022 10:15 AM ACADEMIC SUPPORT SPECIALIST): Chronic problem. Currently taking chlorthalidone 25mg daily & amlodipine 5mg daily. No changes at this time. Assessment & Plan (05/02/2021 2:27 PM ACADEMIC SUPPORT SPECIALIST): Controlled on current medications, no changes. Assessment & Plan (09/03/2020 2:50 PM CDT): Chronic, well controlled Continue current medication Assessment & Plan (04/30/2020 4:48 PM ACADEMIC SUPPORT SPECIALIST): Chronic, well controlled Continue current medication Assessment & Plan (03/19/2020 4:09 PM ACADEMIC SUPPORT SPECIALIST): Chronic, well controlled Continue current medication Hyperlipidemia associated with type 2 diabetes mauro martin 03/19/2020 Assessment & Plan (06/24/2022 12:26 PM CDT): Chronic problem. Currently taking atorvastatin 20mg daily. Last lipid panel: 05/02/21 LDL=47, RR=542. Will update labs today. Verified phone #/address to contact re: results. Assessment & Plan (03/17/2022 10:11 AM ACADEMIC SUPPORT SPECIALIST): Chronic problem. Currently taking atorvastatin 20mg daily. Last LDL on 05/02/21=47. No changes at this time. Assessment & Plan (11/07/2021 10:47 AM CDT): Chronic problem. On statin therapy, no changes. Assessment & Plan (08/08/2021 3:13 PM CDT): Chronic problem. On statin therapy, no changes. Assessment & Plan (05/02/2021 2:28 PM ACADEMIC SUPPORT SPECIALIST): Chronic problem. On statin therapy, no changes. Update lipid panel. Assessment & Plan (09/03/2020 2:50 PM CDT): Patient on statin therapy LDL at goal Assessment & Plan (04/30/2020 4:47 PM ACADEMIC SUPPORT SPECIALIST): Patient on statin therapy Reviewed patient lipid panel results from today LDL at goal Assessment & Plan (03/19/2020 4:10 PM ACADEMIC SUPPORT SPECIALIST): Patient on statin therapy Reviewed recent lipid panel results Osteopenia 06/25/2016 Chronic renal insufficiency 05/21/2015 Assessment & Plan (09/03/2020 2:50 PM CDT): Recheck renal function Assessment & Plan (04/30/2020 4:49 PM ACADEMIC SUPPORT SPECIALIST): Chronic, stage 4 kidney disease Advised to follow with Nephrology Assessment & Plan (03/19/2020 4:10 PM ACADEMIC SUPPORT SPECIALIST): Chronic, stage 4 kidney disease Advised to follow with Nephrology Hypothyroidism 05/21/2015 Assessment & Plan (06/24/2022 12:26 PM CDT): Chronic problem. Currently taking levothyroxine 175mcg daily. Last labs 07/2021 chemically euthyroid. Verified that she uses mychart. Aware to check results/results letter in [place]. Will contact by phone if needed. Assessment & Plan (03/17/2022 10:12 AM ACADEMIC SUPPORT SPECIALIST): Chronic problem. Currently taking levothyroxine 175mcg daily. [...] lab. Assessment & Plan (05/02/2021 2:30 PM ACADEMIC SUPPORT SPECIALIST): Clinically euthyroid. No medication changes. Update TSH. Assessment & Plan (09/03/2020 2:50 PM CDT): Continue current dose of levothyroxine therapy Recheck TSH Assessment & Plan (04/30/2020 4:47 PM ACADEMIC SUPPORT SPECIALIST): Last recent TSH WNL Continue current dose of levothyroxine therapy Assessment & Plan (03/19/2020 4:09 PM ACADEMIC SUPPORT SPECIALIST): Reviewed recent TSH test results, within normal [...] weekly Assessment & Plan (04/30/2020 4:49 PM ACADEMIC SUPPORT SPECIALIST): Chronic, improving Counseled on diet and exercise Assessment & Plan (03/19/2020 4:10 PM ACADEMIC SUPPORT SPECIALIST): Chronic, worsening Discussed about healthy lifestyle habits [...] on file Legal Sex Female 11:22 PM ACADEMIC SUPPORT SPECIALIST Gender Identity Not on file Sexual Orientation [...] hyperglycemia, with long-term current use of insulin (CMS/HCC) (HCC) Hypertension associated with diabetes ([facility]) LIPID PANEL Routine 06/24/2022 12:45 PM CDT Type 2 diabetes mellitus with hyperglycemia, with long-term current use of insulin (CMS/[facility]) (HCC) Hyperlipidemia associated with type 2 diabetes mellitus ([facility]) ALBUMIN CREATININE RATIO, URINE Routine 06/24/2022 12:45 PM CDT Type 2 diabetes mellitus with hyperglycemia, with long-term current use of insulin (CMS/HCC) ([facility]) POCT HEMOGLOBIN A1C Routine 06/24/2022 1 1:58 AM CDT Type 2 diabetes mellitus with hyperglycemia, with long-term current use of insulin ([facility]) ([facility]) DIABETIC EYE EXAM Routine 06/13/2020 from Last 3 Months or Most Recently Relevant to Health Maintenance Results * eGFR (06/24/2022 12:45 PM CDT) eGFR 34 mL/min/1. 73 m2 JEANETTE OG Comment: Interpretive Data Reference Interval Normal >/= 90 mL/min/1.73m2 Mildly decreased* 60 - 89 mL/min/1.73m2 Mildly to moderately decreased 45 - 59 mL/min/1.73m2 Moderately to severely decreased 30 - 44 mL/min/1.73m2 Severely decreased 15 - 29 mL/min/1.73m2 Kidney Failure < 15 mL/min/1.73m2 *Relative to young adult level Estimated glomerular filtration rate is determined by the 2020 CKD-EPI equation recommended by the National Kidney Foundation (A Unifying Approach to GFR Estimation: Recommendations of the NKF-ASK Task Force on Reassessing the Inclusion of Race in Diagnosing Kidney Disease, JASN 202). The CKD-EPI equation should not be used for patients with unstable renal function and has not been validated in children and those over 70. Current interpretive data was last reviewed 2020. Blood 06/24/2022 12:4 5 PM CDT 06/24/2022 6:35 PM CDT us Nae Canseco HOME SALES SERVICE PROFESSIONAL LAB BLOOD ORDERABLES Mariza l Result Performing Organization Address [facility] Co de Phone Number JEANETTE OG [id number] [place] [address] * Albumin Creatinine Ratio, Urine (06/24/2022 12:45 PM CDT) Albumin Ur 13.0 mg/L JEANETTE Comment: Interpretive Data No reference range established. Current interpretive data was last revised 2018. Creatinine Ur 174.2 mg/dL JEANETTE Comment: Interpretive Data No reference range established. Current interpretive data was last revised 2018. Albumin Creatinine Ratio, Ur 7 1 - 29 mg/g JEANETTE Urine 06/24/2022 12:4 5 PM CDT 06/24/2022 6:25 PM CDT Nae Canseco NP LAB URINE ORDERABLES Mariza l Result Performing Organization Address [facility] Co de Phone Number JEANETTE OG [phone] [employer] [place], [place] [id number] * (ABNORMAL) Lipid panel (06/24/2022 12:45 PM CDT) Cholesterol 169 30 - 199 mg/dL JEANETTE Comment: Interpretive Data Ages < or = 19 years Acceptable: <170 mg/dL Borderline high: 170-199 mg/dL High: >or= 200 mg/dL Ages > or = 20 years Desirable: <200 mg/dL Borderline high: 200-239 mg/dL High: >or= 240 mg/dL Literature References: 1. Expert Panel on Integrated Guidelines for Cardiovascular Health and Risk Reduction in Children and Adolescents. Pediatrics 2011;128:S213 2. NCEP Expert Panel. Circulation 2004;110:227 Current Interpretive Data was last revised on 2017. Triglycerides 190(H) <=149 mg/dL JEANETTE Comment: Interpretive Data Ages < or = 9 years Acceptable: <75 mg/dL Borderline high: 75-99 mg/dL High: >or= 100 mg/dL Ages 10 to 20 years Acceptable: <90 mg/dL Borderline high: 90-129 mg/dL High: >or= 130 mg/dL Ages > or = 20 years Desirable: <150 mg/dL Borderline high: 150-199 mg/dL High: 200-499 mg/dL Very high: >or= 499 mg/dL Literature References: 1. Expert Panel on Integrated Guidelines for Cardiovascular Health and Risk Reduction in Children and Adolescents. Pediatrics 2011;128:S213 2. NCEP Expert Panel. Circulation 2004;110:227 Current Interpretive Data was last revised on 2017. HDL 58 >=40 mg/dL JEANETTE Comment: Interpretive Data Ages < or = 19 years Acceptable: >45 mg/dL Borderline low: 40-45 mg/dL Low: <40 mg/dL Ages > or = 20 years Desirable: >or= 60 mg/dL Low: <40 mg/dL Literature References: 1. Expert Panel on Integrated Guidelines for Cardiovascular Health and Risk Reduction in Children and Adolescents. Pediatrics 2011;128:S213 2. NCEP Expert Panel. Circulation 2004;110:227 Current Interpretive Data was last revised on 2017. LDL, calculated 73 <=129 mg/dL JEANETTE Comment: Interpretive Data Ages < or = 19 years Acceptable: <110 mg/dL Borderline high: 110-129 mg/dL High: >or= 130 mg/dL Ages > or = 20 years Optimal: <100 mg/dL Near optimal: 100-129 mg/dL Borderline high: 130-159 mg/dL High: >160 mg/dL Literature References: 1. Expert Panel on Integrated Guidelines for Cardiovascular Health and Risk Reduction in Children and Adolescents. Pediatrics 2011;128:S213 2. NCEP Expert Panel. Circulation 2004;110:227 Current Interpretive Data was last revised on 2017. Non-HDL Cholesterol 111 mg/dL JEANETTE OG Comment: Interpretive Data Ages < or = 19 years Acceptable: <120 mg/dL Borderline high: 120-144 mg/dL High: >145 mg/dL Ages > or = 20 years When triglycerides are >200 mg/dL, Non-HDL cholesterol is a secondary target of therapy with treatment goals that are 30 mg/dL greater than the LDL cholesterol target. Literature References: 1. Expert Panel on Integrated Guidelines for Cardiovascular Health and Risk Reduction in Children and Adolescents. Pediatrics 2011;128:S213 2. NCEP Expert Panel. Circulation 2004;110:227 Current Interpretive Data was last revised on 2017. Chol/HDL ratio 3 JEANETTE OG Blood 06/24/2022 12:4 5 PM CDT 06/24/2022 6:25 PM CDT Nae Canseco NP LAB BLOOD ORDERABLES Mariza l Result JEANETTE [id number] [facility] [place] [address] * (ABNORMAL) POCT hemoglobin A1c (06/24/2022 11:58 AM CDT) Hemoglobin A1C, POC 6.9 % Capillary blood 06/24/2022 1 1:58 AM CDT Nae Canseco NP POINT OF CARE TEST ORDERA BLES Final Result * Diabetic Eye Exam (06/13/2020) Historical Provider HEALTH MAINTENANCE Edited Result - Final from Last 3 Months or Most Recently Relevant to Health Maintenance Insurance [employer] MCR ADVANTRA ROSS [place] [id number] Care Teams Paper Cup Handle Machine Operator Relationship Specialty Start Date End Date Robert Carter MD [address] [place] [address] PCP - General Family Medicine 03/08/20 Vignesh Paniagua MD [address] [place] [address] Referring Physician Nephrology 04/18/20 [place] [address] [address] Consulting Physician Endocrinology 04/18/20
--- OUTSIDE RECORDS SUMMARY | 2024-03-31 11:44 | XMS_ITS | Clinical Summary ---
Author Organization [facility] Elsa duffy Address [address] [place] [id number] Phone Care Team Providers Care Ceo & Founder Name Role Phone Marilyn Ponce Primary Care Provider [phone] Allergies No known active allergies Medications Medication [...] 92 07/07/2023 2:09 PM CDT Temperature 36.1 C (96.9 F) 07/11/2020 12:36 PM CDT Respiratory Rate - - Oxygen Saturation - - Inhaled Oxygen Concentration - - Weight 103 kg (226 lb) 07/07/2023 2:09 PM CDT Height 162.6 cm (5' 4 ) 07/07/2023 2:09 PM CDT Body Mass Index 38.79 07/07/2023 2:09 PM CDT Plan of Treatment Upcoming Encounters Date Type Department Care Team (Late st Contact Info) Description 04/05/2024 11:20 AM SHOEMAKER CUSTOM Office Visit [facility] [address], [address] [place] [address] Vignesh Paniagua MD [address] [address] Health Maintenance Due Date Last Done Comments Diabetic Foot Exam 1955 Ophthalmology Exam 1955 Pneumococcal PPSV23/PCV13 65 + Years / High and Highest Risk (2 of 4 - PPSV23 or PCV20) 11/26/2016 10/01/2016 Influenza Vaccine (#1) 2023 11/08/2013 Care Teams Ceo & Founder Relationship Specialty Start Date End Date Marilyn Ponce [address] [phone] PCP - General 01/06/23
--- OUTSIDE RECORDS SUMMARY | 2024-03-31 11:44 | XMS_ITS | Clinical Summary ---
Author Organization [facility] [address] [place] [id number] Care Team Providers Care Dimension Stone Quarry Supervisor Name Role Phone Robert Carter MD Primary Care Provider [phone] Vignesh Paniagua MD Unavailable [phone] Isac Kam MD Unavailable [phone] Allergies No known active allergies Medications amLODIPine [...] hyperglycemia, with long-term current use of insulin ([facility]) Inject 0.25 mg under the skin once a week 3 mL 1 4 Active Active Problems Problem Noted Date Diagnosed Date Class 2 severe obesity due t o excess calories with serious comorbidity and body mass index (BMI) of 35.0 to 35.9 in adult 03/18/2022 Assessment & Plan (03/18/2022 11:15 AM CEMENTER OIL WELL): Chronic problem. Down 16# since 07/2021. Discussed healthy diet and importance of regular physical activity (20- 30min/day, 150min/wk). CKD stage 3 secondary to diabetes 03/17/2022 Assessment & Plan (03/17/2022 10:10 AM CEMENTER OIL WELL): Component Latest Ref Rng & Units 05/02/2021 [...] Had DM eye exam summer 2021 at [facility]. Letter sent to get copy of [...] infection. Assessment & Plan (03/18/2022 11:26 AM CEMENTER OIL WELL): Chronic problem, A1c at goal but evening [...] it. Assessment & Plan (05/02/2021 2:30 PM CEMENTER OIL WELL): Chronic problem, not at goal with some [...] log Assessment & Plan (04/30/2020 4:51 PM CEMENTER OIL WELL): Chronic, uncontrolled , improving HbA1c Recent - [...] log Assessment & Plan (03/19/2020 4:09 PM CEMENTER OIL WELL): Chronic, uncontrolled , worsening HbA1c Recent - 10.6 % Poor pt compliance to diet and DM - discussed about DM type 2, - patho physiology, short and custodial complications of uncontrolled DM, diet and exercise [...] and bedtime - demonstrated how to use [employer]ish CGM - follow up in 4 weeks with BS log Hypertension associated with diabetes 03/19/2020 Assessment & Plan (06/24/2022 12:27 PM CDT): Chronic problem. Currently taking chlorthalidone 25mg daily & amlodipine 5mg daily. No changes at this time. Will update labs today. Verified phone #/address to contact re: results. Assessment & Plan (03/17/2022 10:15 AM CEMENTER OIL WELL): Chronic problem. Currently taking chlorthalidone 25mg daily & amlodipine 5mg daily. No changes at this time. Assessment & Plan (05/02/2021 2:27 PM CEMENTER OIL WELL): Controlled on current medications, no changes. Assessment & Plan (09/03/2020 2:50 PM CDT): Chronic, well controlled Continue current medication Assessment & Plan (04/30/2020 4:48 PM CEMENTER OIL WELL): Chronic, well controlled Continue current medication Assessment & Plan (03/19/2020 4:09 PM CEMENTER OIL WELL): Chronic, well controlled Continue current medication Hyperlipidemia associated with type 2 diabetes mauro martin 03/19/2020 Assessment & Plan (06/24/2022 12:26 PM CDT): Chronic problem. Currently taking atorvastatin 20mg daily. Last lipid panel: 05/02/21 LDL=47, WO=391. Will update labs today. Verified phone #/address to contact re: results. Assessment & Plan (03/17/2022 10:11 AM CEMENTER OIL WELL): Chronic problem. Currently taking atorvastatin 20mg daily. Last LDL on 05/02/21=47. No changes at this time. Assessment & Plan (11/07/2021 10:47 AM CDT): Chronic problem. On statin therapy, no changes. Assessment & Plan (08/08/2021 3:13 PM CDT): Chronic problem. On statin therapy, no changes. Assessment & Plan (05/02/2021 2:28 PM CEMENTER OIL WELL): Chronic problem. On statin therapy, no changes. Update lipid panel. Assessment & Plan (09/03/2020 2:50 PM CDT): Patient on statin therapy LDL at goal Assessment & Plan (04/30/2020 4:47 PM CEMENTER OIL WELL): Patient on statin therapy Reviewed patient lipid panel results from today LDL at goal Assessment & Plan (03/19/2020 4:10 PM CEMENTER OIL WELL): Patient on statin therapy Reviewed recent lipid panel results Osteopenia 06/25/2016 Chronic renal insufficiency 05/21/2015 Assessment & Plan (09/03/2020 2:50 PM CDT): Recheck renal function Assessment & Plan (04/30/2020 4:49 PM CEMENTER OIL WELL): Chronic, stage 4 kidney disease Advised to follow with Nephrology Assessment & Plan (03/19/2020 4:10 PM CEMENTER O[employer] WELL): Chronic, stage 4 kidney disease Advised to follow with Nephrology Hypothyroidism 05/21/2015 Assessment & Plan (06/24/2022 12:26 PM CDT): Chronic problem. Currently taking levothyroxine 175mcg daily. Last labs 07/2021 chemically euthyroid. Verified that she uses [facility] [employer] Aware to check results/results letter in [employer]. Will contact by phone if needed. Assessment & Plan (03/17/2022 10:12 AM CEMENTER OIL WELL): Chronic problem. Currently taking levothyroxine 175mcg daily. [...] lab. Assessment & Plan (05/02/2021 2:30 PM CEMENTER OIL WELL): Clinically euthyroid. No medication changes. Update TSH. Assessment & Plan (09/03/2020 2:50 PM CDT): Continue current dose of levothyroxine therapy Recheck TSH Assessment & Plan (04/30/2020 4:47 PM CEMENTER OIL WELL): Last recent TSH WNL Continue current dose of levothyroxine therapy Assessment & Plan (03/19/2020 4:09 PM CEMENTER OIL WELL): Reviewed recent TSH test results, within normal limits Continue current dose of levothyroxine therapy Resolved Problems Problem Noted Date Diagnosed Date Resolved Date Morbid (severe) obesity due to excess calories 08/08/2021 03/17/2022 Class 2 severe obesity due t o excess calories with serious comorbidity and body mass index (BMI) of 37.0 to 37.9 in adult 03/19/2020 Assessment & Plan (09/03/2020 2:51 PM CDT): [...] weekly Assessment & Plan (04/30/2020 4:49 PM CEMENTER OIL WELL): Chronic, improving Counseled on diet and exercise Assessment & Plan (03/19/2020 4:10 PM CEMENTER OIL WELL): Chronic, worsening Discussed about healthy lifestyle habits [...] 05/21/2015 03/17/2022 Shortness of breath 05/21/2015 03/17/19 Encounters Date Type Department Care Team Description 02/10/2024 Telephone [facility] Diabetes and Endocrinology [address] [place] [phone] Romulo Sebastian, Isac Sebastian MD Med Management ([facility]) from Last 3 Months Immunizations Name Administration [...] kidney disease) stage 4, GFR 15-29 ml/min ([facility]) (HCC) Parkinson's disease (HCC) Family History Medical [...] on file Legal Sex Female 11:22 PM CEMENTER O[employer] WELL Gender Identity Not on file Sexual Orientation [...] history exists Albumin Creatinine Ratio, Urine 06/25/2023 , 05/02/2021 Lipid Panel 06/25/2023 06/24/2022, 04/23, 04/30/2020 eGFR 06/25/2023 06/24/2022, 05/02/2021 Influenza Vaccine (#1) 2023 9, 01/22/2016, 11/10/2014, Additional history exists Pneumococcal vaccine 65+ Completed 10/01/2016, 09/24 Procedures Procedure Name Priority Date/Time Associated Diagnosis Comments EGFR Routine 06/24/2022 12:45 PM CDT Type 2 diabetes mellitus with hyperglycemia, with long-term current use of insulin ([facility]) (HCC) Hypertension associated with diabetes (HCC) LIPID PANEL Routine 06/24/2022 12:45 PM CDT Type 2 diabetes mellitus with hyperglycemia, with long-term current use of insulin ([facility]) ([facility]) Hyperlipidemia associated with type 2 diabetes mellitus ([facility]) ALBUMIN CREATININE RATIO, URINE Routine 06/24/2022 12:45 PM CDT Type 2 diabetes mellitus with hyperglycemia, with long-term current use of insulin ([facility]) ([facility]) POCT HEMOGLOBIN A1C Routine 06/24/2022 1 1:58 AM CDT Type 2 diabetes mellitus with hyperglycemia, with long-term current use of insulin ([facility]) ([facility]) DIABETIC EYE EXAM Routine 06/13/2020 [...] CDT 06/24/2022 6:35 PM CDT Nae Canseco PROFESSIONAL BONDSMAN LAB BLOOD ORDERABLES Mariza l Result Performing Organization Address [facility] de Phone Number JEANETTE [address] [place] [address] * Albumin Creatinine Ratio, Urine [...] CDT 06/24/2022 6:25 PM CDT Nae Canseco PROFESSIONAL [employer]ONDSMAN LAB URINE ORDERABLES Mariza l Result Performing Organization Address [facility] de Phone Number JEANETTE [address] [place] [address] * (ABNORMAL) Lipid panel (06/24/2022 12:45 PM [...] Pediatrics 2011;128:S213 2. NCEP Expert Panel. Circulation 2003;110:227 Current Interpretive Data was last revised on [...] Pediatrics 2011;128:S213 2. NCEP Expert Panel. Circulation 2003;110:227 Current Interpretive Data was last revised on [...] Pediatrics 2011;128:S213 2. NCEP Expert Panel. Circulation 2003;110:227 Current Interpretive Data was last revised on [...] revised on 2017. Chol/HDL ratio 3 JEANETTE Blood 06/24/2022 12:4 5 PM CDT 06/24/2022 6:25 PM CDT us Nae Canseco NP LAB BLOOD ORDERABLES Mariza l Result Performing Organization Address City/State/[facility] Co de Phone Number JEANETTE [address] Department [place] [address] * (ABNORMAL) POCT hemoglobin A1c (06/24/2022 11:58 AM CDT) Hemoglobin A1C, POC 6.9 % Capillary blood 06/24/2022 1 1:58 AM CDT Nae Canseco NP POINT OF CARE TEST ORDERA BLES Final Result * Diabetic Eye Exam (06/13/2020) us Historical Provider HEALTH MAINTENANCE Edited Result - Final from Last 3 Months or Most Recently Relevant to Health Maintenance [facility] [address] ROBERTO Mendez [id number] Care Teams Dimension Stone Quarry Supervisor Relationship Specialty Start Date End Date Robert Carter MD [address] [place] [address] PCP - General Family Medicine 03/08/20 Vignesh Paniagua MD [address] [place] [address] Referring Physician Nephrology 04/18/20 [place] [id number] [address] Consulting Physician Endocrinology 04/18/20
--- OUTSIDE RECORDS SUMMARY | 2024-03-31 11:44 | XMS_ITS | CONTINUITY OF CARE DOCUMENT ---
Author Name serafin betancourt Address Unknown Organization [facility] Address [address] [place] [address] Phone [phone] Care Team Providers Care Wet Cleaner Machine Name Role Phone Jaswinder [place], Mabel Unavailable [phone] Kip Krueger MD Unavailable Kpi Krueger MD Unavailable [phone] PROBLEMS Condition Status Date Provider Notes SOB active Mabel San MD Hypercholesterolemia active Mabel San MD HTN essential active Mabel San MD Diabetes mellitus active Mabel San MD Hypothyroidism active Mabel San MD Renal failure, s/p nephrectomy active Medhat San MD Dizziness active Mabel San MD ENCOUNTERS Date Type Provider Location Encounter Diag nosis - In-person encounter Office Visit Mabel San MD [place] [facility] SOBHypercholesterolemiaHTN essentialDiabetes mellitusHypothyroidismRenal failure, s/p nephrectomyDizziness VITAL SIGNS Date Observation Value Provider blood pressure, diastolic 57 mm[Hg] Me jonessa Jaycee blood pressure, systolic 125 mm[Hg] Madalyn Champion [...] cell distribution width, size density 50.9 fL [facility] - 8 immature granulocytes, percentage of total cells, blood 0.3 % [facility] - 8 nucleated red blood cells as percent of blood leukocytes 0.0 % [facility] 8 red blood cell (erythrocyte) count, per high power field 0.0 10*3/UL [facility] eosinophils as percent of blood leukocytes 3.2 % [facility] - 8 neutrophils as percent of blood leukocytes 72.8 % [facility] - 8 Absolute Neutrophils 6.8 CELLS/UL [employer] 1.5 - 7.8 8 basophils as percent of blood leukocytes 0.4 % [facility] - 8 Absolute Basophils 0.0 CELLS/UL [employer] 0.0 - 0.2 8 monocytes as percent of blood leukocytes 5.6 % [facility] - 8 Absolute Monocytes 0.5 CELLS/UL [employer] 0.2 - 1.0 8 lymphocytes as percent of blood leukocytes 17.7 % [facility] - 8 Absolute Lymphocytes 1.7 CELLS/UL [employer] 0.9 - 3.9 8 mean platelet volume 10.5 (?) [facility] - 8 platelet count 350.0 THOUSAND/ UL [...] Payer name Policy type / Coverage type [place] [employer] [facility] MEDICARE COMPLETE HMO Other [id number] TREATMENT PLAN Date Name Performer Cardiology Mabel San MD Cardiology Mabel San MD Cardiology Mabel San MD Cardiology Mabel San MD Cardiology Mabel San MD Date Name TSH, 3RD GENERATION COMPREHENSIVE METABO LIC PANEL W/EGFR CBC (INCLUDES DIFF/P LT) HISTORY OF PROCEDURES Procedure Date Procedure Name Provider Procedure Notes S tatus BLOOD COUNT HEMOGLOBIN Mabel San MD completed FVC - 73077 Mbael San MD complete d FRC - 20595 Mabel San MD complete d DLCO - 91875 Mabel San MD complet ed EKG Mabel San MD completed SNOMED-CT: [id number] Current Medications Documented Mabel San MD completed
[2024-03-31 12:19] LABS: Add Urine Microscopic? NO; Appearance Urine Clear (Clear); Bilirubin Urine Negative (Negative); Blood Urine Negative (Negative); Color Urine Yellow (Yellow); Glucose Urine UA Negative (Negative); Ketones Urine Negative (Negative); Leukocyte Esterase Ur Negative LEU/UL (Negative); Nitrate Urine Negative (Negative); Protein Urine Negative (Negative); Specific Grav Ur 1.018 (1.001-1.035); Urobilinogen Urine 0.2 mg/dL (<2.0); pH Urine 5.5 (5.0-9.0)
[2024-03-31 12:34] LABS: Creatinine Urine 122.6 mg/dL
[2024-03-31 12:36] LABS: Anion Gap 13 mmol/L (4-12); Blood Urea Nitrogen 32 mg/dL (7-17); Calcium 8.6 mg/dL (8.4-10.2); Carbon Dioxide 23 mmol/L (22-30); Chloride 105 mmol/L (98-107); Estimated Glomerular Filt Rate 30; Glucose 191 mg/dL (65-110); Potassium 4.4 mmol/L (3.4-5.0); Sodium 141 mmol/L (137-145)
[2024-03-31 12:37] LABS: MALB Creatinine Ratio 26.8 mg/g (0-30); Microalbumin Urine Random 32.9 mg/L (0-16.7)
[2024-03-31 12:42] LABS: Parathyroid Intact 61.9 pg/mL (14.5-75.2)
== END 2024-03-31 11:12 | disposition home or self-care (01) ==
PROVIDERS: Visit Provider Internal Medicine Nephrology
DX: N18.32 Chronic kidney disease, stage 3b (principal); N25.81 Secondary hyperparathyroidism of renal origin
CPT/HCPCS: 36415; 80048; 81003; 82043; 82306; 83970